=== PATIENT | male | born 1940 | race Caucasian/White ===

== ENCOUNTER 2016-12-24 18:19 | Inpatient (IN) | payer MEDICARE, MEDICAID ==
[2016-12-24 20:31] LABS: % BASOPHILS 0.6 % (0.0-2.0); % EOSINOPHILS 2.6 % (0.0-5.0); % LYMPHOCYTES 23.1 % (20.0-50.0); % MONOCYTES 6.5 % (2.0-10.0); % NEUTROPHILS 67.2 % (40.0-80.0); HEMATOCRIT 38.7 % (41.0-60); MEAN CELL VOLUME 94.5 fl (80-99); MEAN CORPUSCULAR HEMOGLOBIN 31.8 pg (27.0-31.0); MEAN CORPUSCULAR HGB CONC 33.7 pg (28.0-36.0); MEAN PLATELET VOLUME 7.2 fl; NEUTROPHILE ABSOLUTE 6.2 Th/cmm (1.8-8.0); PLATELET COUNT 201 Th/cmm (150-400); RED CELL DISTRIBUTION WIDTH 13.7 % (11.5-20.0); WHITE BLOOD COUNT 9.2 Th/cmm (4.8-10.8)
[2016-12-24 20:46] LABS: ALKALINE PHOSPHATASE 52 U/L (34-104); ANION GAP 8.2 (7.0-16.0); BILIRUBIN,TOTAL 0.8 mg/dL (0.3-1.0); BUN - UREA NITROGEN 24 mg/dL (7-25); BUN/CREATININE RATIO 18.5; CALCIUM SERUM 9.7 mg/dL (8.6-10.3); CHLORIDE 100 mEq/L (98-107); CREATININE - SERUM 1.3 mg/dL (0.7-1.3); GLUCOSE 88 mg/dL; POTASSIUM SERUM 4.2 mEq/L (3.5-5.1); SGOT 23 U/L (13-39); SGPT/ALT 22 U/L (7-52); SODIUM SERUM 133 mEq/L (136-145)
--- NOTE | 2016-12-25 00:05 | ED Physician Chart ---
ED Chief Complaint/HPI - Patient Information Date Seen:: 12/25/16 Time Seen:: 20:30 Chief Complaint:: Bilateral lower extremities ulcers History of Present Illness:: 76 yo male was brought by manager sap from [place] to ER for evaluation of bilateral lower extremities ulcers for more than a few months. These ulcers are healing with eschar except re-opening of an ulcer in the RLE. The patient was oriented to his name and place, not time. Allergies:: Allergies Allergy/AdvReac Type Severity Reaction Status Date / Time niacin Allergy Verified 12/24/16 18:59 Vitals:: Vital Signs - 8 hr 12/24/16 18:59 Temp 97.2 F HR 54 RR 16 BP 123/76 O2 Sat % 96 ED Review of Systems - Review of Systems General/Constitutional: No fever, No chills Skin: Skin lesions Head: No headache Eyes: No loss of vision ENT: No nasal drainage Neck: No neck pain, No swelling Cardio Vascular: No chest pain Pulmonary: No SOB GI: No nausea, No vomiting Musculoskeletal: No bone or joint pain Psychiatric: Prior psych history, Anxiety Neurological: No syncope ED Past Medical History - Past Medical History Past Medical History: HTN, DVT/PE, PUD/GERD, Other (BPH) Psychiatricy History: Schizophrenia, Dementia, Other (Anxiety) Family Medical History - Family Member Mother History Unknown: Yes ED Physical Exam - Physical Examination General/Constitutional: Awake, Alert Head: Atraumatic Eyes: PERRL, EOMI Other Skin comments:: Multiple healed ulcers with eschar on BLE with a open ulcer on RLE Neck: No JVD Respiratory: Clear to Auscultation, No Wheeze/Rhonchi/Rales Cardio Vascular: RRR, No murmur, gallop, rubs, NL S1 S2 Extremities: No edema Other Extremities comments:: mild erythema of BLE surrounding the ulcers ED Labs/Radiology/EKG Results - Lab Results Results: Laboratory Tests 12/24/16 12/24/16 12/24/16 20:22 20:22 20:22 WBC 9.2 RBC 4.10 Hgb 13.0 Hct 38.7 L MCV 94.5 MCH 31.8 H MCHC Differential 33.7 RDW 13.7 Plt Count 201 MPV 7.2 Neutrophils % 67.2 Lymphocytes % 23.1 Monocytes % 6.5 Eosinophils % 2.6 Basophils % 0.6 Sodium 133 L Potassium 4.2 Chloride 100 Carbon Dioxide 29.0 Anion Gap 8.2 BUN 24 Creatinine 1.3 Est GFR ( Amer) TNP Est GFR (Non-Af Amer) TNP BUN/Creatinine Ratio 18.5 Glucose 88 Hemoglobin A1c % 5.8 Calcium 9.7 Total Bilirubin 0.8 AST 23 ALT 22 Alkaline Phosphatase 52 Total Protein 7.3 Albumin 3.7 L Globulin 3.6 Albumin/Globulin Ratio 1.0 ED Assessment - Assessment General Assessment: BLE mild cellulitis, BLE ulcers healed, RLE open ulcer, hyponatremia Critical Care Time: 30 min Excludes all billable procedures: Yes This condition life threatening/high prob of deterioration: No Assessment/Comments:: CBC, CMP, HbA1c, CXR, EKG Admit to med surg for further evaluation and management ED Septic Shock - . Is Septic Shock (SBP<90, OR Lactate>4 mmol\L) present?: No - <6hrs of presentation: Vital Signs: Vital Signs - 8 hr 12/24/16 18:59 Temp 97.2 F HR 54 RR 16 BP 123/76 O2 Sat % 96 ED Reassessment (Disposition) - Reassessment Reassessment Condition:: Unchanged - Patient Disposition Discharge/Transfer:: Acute Care w/in this hosp Admitting Medical Physician:: Cady Vargas ED Discharge Plan - Patient Disposition Admit/Discharge/Transfer: Acute Care w/in this hosp
[2016-12-25] MEDS ORDERED: Pneumococcal Vaccine 0.5 mL Vial IM ONE (03:19)
[2016-12-25] MEDS ORDERED: Influenza Vaccine 0.5 mL Syr IM ONE (03:19)
[2016-12-25 03:38] VITALS: BP 146/78
[2016-12-25 06:56] LABS: % BASOPHILS 0.2 % (0.0-2.0); % EOSINOPHILS 3.4 % (0.0-5.0); % LYMPHOCYTES 18.4 % (20.0-50.0); % MONOCYTES 8.9 % (2.0-10.0); % NEUTROPHILS 69.1 % (40.0-80.0); HEMATOCRIT 37.1 % (41.0-60); HEMOGLOBIN 12.6 gm/dL (12-16); MEAN CELL VOLUME 94.2 fl (80-99); MEAN CORPUSCULAR HEMOGLOBIN 31.9 pg (27.0-31.0); MEAN CORPUSCULAR HGB CONC 33.9 pg (28.0-36.0); MEAN PLATELET VOLUME 6.5 fl; PLATELET COUNT 197 Th/cmm (150-400); RED BLOOD COUNT 3.93 Mil/cmm (3.80-5.80); RED CELL DISTRIBUTION WIDTH 13.4 % (11.5-20.0)
[2016-12-25 06:58] LABS: WHITE BLOOD COUNT 7.1 Th/cmm (4.8-10.8)
[2016-12-25 07:17] LABS: ALKALINE PHOSPHATASE 50 U/L (34-104); ANION GAP 8.3 (7.0-16.0); BILIRUBIN,TOTAL 0.7 mg/dL (0.3-1.0); BUN - UREA NITROGEN 23 mg/dL (7-25); BUN/CREATININE RATIO 17.7; CALCIUM SERUM 9.4 mg/dL (8.6-10.3); CARBON DIOXIDE 29.1 mEq/L (21.0-31.0); CHLORIDE 102 mEq/L (98-107); CHOLESTEROL 156 mg/dL (<200); CREATININE - SERUM 1.3 mg/dL (0.7-1.3); GLUCOSE 86 mg/dL; MAGNESIUM 2.1 mg/dL (1.9-2.7); POTASSIUM SERUM 4.4 mEq/L (3.5-5.1); SGOT 23 U/L (13-39); SGPT/ALT 20 U/L (7-52); SODIUM SERUM 135 mEq/L (136-145); TRIGLYCERIDES 266 mg/dL (<150)
[2016-12-25] MEDS ORDERED: VTE Chemical Prophylaxis Screen/Admission MC PRN (11:00)
[2016-12-26 05:50] LABS: % BASOPHILS 0.1 % (0.0-2.0); % EOSINOPHILS 2.8 % (0.0-5.0); % LYMPHOCYTES 23.1 % (20.0-50.0); % MONOCYTES 10.2 % (2.0-10.0); % NEUTROPHILS 63.8 % (40.0-80.0); HEMATOCRIT 40.3 % (41.0-60); HEMOGLOBIN 13.4 gm/dL (12-16); MEAN CELL VOLUME 93.5 fl (80-99); MEAN CORPUSCULAR HEMOGLOBIN 31.2 pg (27.0-31.0); MEAN CORPUSCULAR HGB CONC 33.3 pg (28.0-36.0); MEAN PLATELET VOLUME 7.7 fl; NEUTROPHILE ABSOLUTE 6.8 Th/cmm (1.8-8.0); PLATELET COUNT 198 Th/cmm (150-400); RED BLOOD COUNT 4.31 Mil/cmm (3.80-5.80); RED CELL DISTRIBUTION WIDTH 13.6 % (11.5-20.0)
[2016-12-26 05:51] LABS: WHITE BLOOD COUNT 10.6 Th/cmm (4.8-10.8)
[2016-12-26 06:10] LABS: ANION GAP 8.7 (7.0-16.0); BUN - UREA NITROGEN 22 mg/dL (7-25); BUN/CREATININE RATIO 14.7; CALCIUM SERUM 9.5 mg/dL (8.6-10.3); CARBON DIOXIDE 28.6 mEq/L (21.0-31.0); CHLORIDE 102 mEq/L (98-107); CREATININE - SERUM 1.5 mg/dL (0.7-1.3); MAGNESIUM 2.2 mg/dL (1.9-2.7); POTASSIUM SERUM 4.3 mEq/L (3.5-5.1); SODIUM SERUM 135 mEq/L (136-145)
[2016-12-26 06:11] LABS: GLUCOSE 112 mg/dL (70-105)
[2016-12-26] MEDS ORDERED: Magnesium Hydroxide (MOM) 30 mL UDC PO PRN (08:52)
[2016-12-26] MEDS ORDERED: CALCIUM CARBONATE PO SCH (09:00)
[2016-12-26] MEDS ORDERED: SOLIFENACIN SUCCINATE PO SCH (09:00)
[2016-12-26] MEDS ORDERED: [UNRECOGNIZED DRUG - OTHER] PO SCH (09:00)
[2016-12-26] MEDS ORDERED: VITAMIN D3 PO SCH (09:00)
[2016-12-26] MEDS ORDERED: Non-Formulary Item 1 EA (Rivaroxaban [Xarelto] 1 TAB) PO SCH (09:00)
[2016-12-26] MEDS ORDERED: OXYBUTYNIN CHLORIDE PO SCH (09:00)
[2016-12-26] MEDS ORDERED: [UNRECOGNIZED DRUG - OTHER] PO SCH (09:00)
--- NOTE | 2016-12-26 10:05 | History & Physical ---
ADMIT DATE: 12/25/2016 CHIEF COMPLAINT: Bilateral lower extremity redness and RLE open ulcer. HISTORY OF PRESENT ILLNESS: The patient is a 76-year-old gentleman with history of hypertension, BPH, acid reflux disease, possible Parkinson's, who was transferred to the ER from his board and care apparently secondary to the above. In the ER, pertinent findings included sodium of 133, BUN of 24 and physically, bilateral lower extremity redness. The patient is a poor historian, is not able to provide any significant history. He has been admitted to the medical/surgical floor for IV hydration, wound care and IV abxs. Per machine tool operator at assisted facility, pt was recently admitted there with previous hx of ble open wounds, but at the time of admission they were well healed, however, yesterday when they evaled him, the RLE had re-opened again. PAST MEDICAL HISTORY: Per records as noted above. PAST SURGICAL HISTORY: Unknown. FAMILY HISTORY: Likely noncontributory to his admission. SOCIAL HISTORY: Unknown, but he currently lives at a [facility]. ALLERGIES: Allergic to niacin. OUTPATIENT MEDICATIONS: Tylenol p.r.n., vitamin D 1000 units q. daily, dexlansoprazole 60 mg a.c. and at bedtime, Depakote ER t.i.d., docusate sodium 100 mg q. day, escitalopram 10 mg q. day, Proscar at bedtime, milk of magnesia 30 mL p.r.n. for constipation, metoprolol 25 b.i.d., multivitamins q. day, Zyprexa 1 mg at bedtime, omeprazole 20 mg q.a.c., oxybutynin 2 tabs q. daily, ramipril 10 mg b.i.d., Xarelto once a day, solifenacin q. day, Flomax 0.4 at bedtime. REVIEW OF SYSTEMS: A good review of systems was not able to be done given the patient's condition. PHYSICAL EXAMINATION: VITAL SIGNS: Temperature 96, pulse 68, BP 143/82, respirations 18, and satting 94% on room air. GENERAL: He is a well-developed and well-nourished gentleman, awake, he seems to follow commands and attempts to answer questions, but currently is just grumbling. He appears to be in no distress. HEAD AND NECK: Normocephalic, atraumatic. Pupils are reactive to light. Extraocular movements are intact. Oropharynx is moist and clear. CARDIAC: Regular rate and rhythm with no murmurs. LUNGS: Decreased at the bases, but clear to auscultation bilaterally. ABDOMEN: Soft, supple, nontender, nondistended, normoactive bowel sounds. EXTREMITIES: In lower extremities, there are dermatitic changes on both legs up to the mid shins. There is mild erythema noted on both legs, but no open wounds and no ulcers. There is 1-2+ pedal pulses. RLE with very small round open wound on the lateral aspect, which appears clean with no surrounding erythema. On the LLE, there is a small round ulcer at the same position as the RLE with eschar formation. NEUROLOGIC: Difficult to assess given the patient's condition. He does have tremors noted, both upper extremity tremor, appears to be nonfocal otherwise. LABORATORY DATA: On admission; his CBC was essentially within normal limits. Sodium 133, BUN 24, creatinine 1.3, and albumin 3.7. DIAGNOSTICS: None current. ASSESSMENT: 1. Mild bilateral lower extremity cellulitis. 2. RLE open ulcer-f/u wound c/s, daily WC, silvadene cream 3. LLE ulcer-appears to be healing with eschar formation. 4. Hyponatremia-IVF, monitor. 5. Mild renal insufficiency/dehydration-as above. 6. Essential hypertension. 7. Acid reflux disease. 8. DVT prophylaxis-on Xarelto. 9. Parkinson's dz? PLAN: The patient has been admitted to the medical floor for further management and care. He has been placed on IV abxs, IVF at 75 mL per hour. Daily WC has been ordered, and a wound C/S has been collected. He will be kept on his other medications as scheduled, and we will monitor his labs. JOB# [id number] [email or web address]
[2016-12-26] MEDS ORDERED: Non-Formulary Item 1 EA (Dexlansoprazole [Dexilant] 60 MG) PO SCH (11:30)
[2016-12-26] MEDS ORDERED: Non-Formulary Item 1 EA (Omeprazole [Omeprazole] 20 MG) PO SCH (11:30)
[2016-12-26] MEDS: Sodium Chloride 0.9% 1,000 ML IV SCH ×2 (11:45→22:01)
[2016-12-26] MEDS: Calcium Carb/Vit D 500 mg/200 U Tab PO SCH (16:50)
[2016-12-27 06:24] LABS: ANION GAP 9.4 (7.0-16.0); BUN - UREA NITROGEN 25 mg/dL (7-25); BUN/CREATININE RATIO 19.2; CARBON DIOXIDE 27.7 mEq/L (21.0-31.0); CHLORIDE 103 mEq/L (98-107); CREATININE - SERUM 1.3 mg/dL (0.7-1.3); MAGNESIUM 2.1 mg/dL (1.9-2.7); POTASSIUM SERUM 4.1 mEq/L (3.5-5.1); SODIUM SERUM 136 mEq/L (136-145)
[2016-12-27 06:30] LABS: GLUCOSE 92 mg/dL (70-105)
[2016-12-27] MEDS: Calcium Carb/Vit D 500 mg/200 U Tab PO SCH ×2 (08:22→17:15)
[2016-12-27] MEDS: Pantoprazole 40 mg EC Tab PO SCH (08:24)
[2016-12-27] MEDS: Multivitamin Tab PO SCH (08:27)
[2016-12-27] MEDS: Sodium Chloride 0.9% 1,000 ML IV SCH (13:58)
[2016-12-27] MEDS ORDERED: Probiotic Screen MC PRN (15:25)
[2016-12-28] MEDS: Sodium Chloride 0.9% 1,000 ML IV SCH (02:26)
[2016-12-28 06:48] LABS: BUN - UREA NITROGEN 21 mg/dL (7-25); BUN/CREATININE RATIO 17.5; CALCIUM SERUM 9.2 mg/dL (8.6-10.3); CARBON DIOXIDE 28.3 mEq/L (21.0-31.0); CHLORIDE 106 mEq/L (98-107); CREATININE - SERUM 1.2 mg/dL (0.7-1.3); GLUCOSE 119 mg/dL (70-105); MAGNESIUM 2.1 mg/dL (1.9-2.7); POTASSIUM SERUM 4.3 mEq/L (3.5-5.1); SODIUM SERUM 138 mEq/L (136-145)
[2016-12-28] MEDS: Pantoprazole 40 mg EC Tab PO SCH (08:32)
[2016-12-28] MEDS: Multivitamin Tab PO SCH (08:33)
[2016-12-28] MEDS: Calcium Carb/Vit D 500 mg/200 U Tab PO SCH (08:34)
[2016-12-28] MEDS ORDERED: Lactobacillus Rhamnosus 10 Billion CFU Capsule PO SCH (09:00)
== END 2016-12-28 11:40 | DRG 603 ==
LOC: ER 18:19 → MSI 12-25 00:10
PROVIDERS: ADMIT Internal Medicine; ATTEND Internal Medicine
DX: L03.115 Cellulitis of right lower limb (principal); E87.1 Hypo-osmolality and hyponatremia; I48.91 Unspecified atrial fibrillation; G20 Parkinson's disease; L97.918 Non-pressure chronic ulcer of unspecified part of right lower leg with other specified severity; F20.9 Schizophrenia, unspecified; E86.0 Dehydration; L97.928 Non-pressure chronic ulcer of unspecified part of left lower leg with other specified severity; L03.116 Cellulitis of left lower limb; F03.90 Unspecified dementia, unspecified severity, without behavioral disturbance, psychotic disturbance, mood disturbance, and anxiety; F29 Unspecified psychosis not due to a substance or known physiological condition; I10 Essential (primary) hypertension; K21.9 Gastro-esophageal reflux disease without esophagitis; N40.0 Benign prostatic hyperplasia without lower urinary tract symptoms; F41.9 Anxiety disorder, unspecified; N28.9 Disorder of kidney and ureter, unspecified; Z86.718 Personal history of other venous thrombosis and embolism
CPT/HCPCS: 36415-UA; 80048-TC; 80053-TC; 80061-TC; 83036-90; 83735-TC; 85025-TC; 85652-TC; 87070-90; J0696; J7030; J7051; Z7610

== ENCOUNTER 2018-01-07 13:05 | Inpatient (IN) | payer MEDICARE, MEDICAID ==
[2018-01-07] MEDS ORDERED: Sodium Chloride 0.9% 1,000 ML IV ONE (13:48)
--- NOTE | 2018-01-07 13:49 | ED Physician Chart ---
ED Chief Complaint/HPI - Patient Information Date Seen:: 01/07/18 Time Seen:: 13:25 Chief Complaint:: Vomiting History of Present Illness:: onset x 2 days of N/V/D x 6; no report of trauma, LOC, ALOC, AMS, H/As, S/T, neck pain, cough, C/P, SOB, Abd. Pain, A/C, fever, chills, or urinary s/s Allergies:: Allergies Allergy/AdvReac Type Severity Reaction Status Date / Time niacin Allergy Verified 12/24/16 18:59 Vitals:: Vital Signs - 8 hr 01/07/18 13:25 Temp 96.6 F HR 63 RR 18 BP 109/60 Historian:: Patient, EMS Review:: Nurse's Note Reviewed, Old Chart Reviewed, EMS run form Reviewed ED Review of Systems - Review of Systems General/Constitutional: No fever, No chills, No weight loss, No weakness, No diaphoresis, No edema, No loss of appetite Skin: No skin lesions, No rash, No bruising Head: No headache, No light-headedness Eyes: No loss of vision, No pain, No diplopia ENT: No earache, No nasal drainage, No sore throat, No tinnitus Neck: No neck pain, No swelling, No thyromegaly, No stiffness, No mass noted Cardio Vascular: No chest pain, No palpitations, No PND, No orthopnea, No edema Pulmonary: No SOB, No cough, No sputum, No wheezing GI: Nausea, Vomiting, Diarrhea, Pain, No melena, No hematochezia, No constipation, No hematemesis G/U: No dysuria, No frequency, No hematuria, No nacturia Musculoskeletal: No bone or joint pain, No back pain, No muscle pain Endocrine: No polyuria, No polydipsia Psychiatric: Prior psych history, Depression, Anxiety, No suicidal ideation, No homicidal ideation, Auditory hallucination, No visual hallucination Hematopoietic: No bruising, No lymphadenopathy Allergic/Immuno: No urticaria, No angioedema Neurological: No syncope, No focal symptoms, No weakness, No paresthesia, No headache, No seizure, No dizziness, Confusion, No vertigo ED Past Medical History - Past Medical History Obtainable: Yes Past Medical History: HTN, Dementia Family History: HTN Social History: Non Smoker, No Alcohol, No Drug Use, Single, Care Facility Surgical History: None Psychiatricy History: Depression, Schizophrenia, Dementia Medication: Reviewed Family Medical History - Family Member Mother History Unknown: Yes ED Physical Exam - Physical Examination General/Constitutional: Awake, Well-developed, well-nourished, Alert, No distress, GCS 15, Non-toxic appearing, Ambulatory Head: Atraumatic Eyes: Lids, conjuctiva normal, PERRL, EOMI Skin: Nl inspection, No rash, No skin lesions, No ecchymosis, Well hydrated, No lymphadenopathy ENMT: External ears, nose nl, TM canals nl, Nasal exam nl, Lips, teeth, gums nl , Oropharynx nl, Tonsils nl Neck: Nontender, Full ROM w/o pain, No JVD, No nuchal rigidity, No bruit, No mass, No stridor Respiratory: Nl effort/Exclusion, Clear to Auscultation, No Wheeze/Rhonchi/Rales Cardio Vascular: RRR, No murmur, gallop, rubs, NL S1 S2, Carotid/Femoral/Distal pulses equal bilaterally GI: No tenderness/rebounding/guarding, No organomegaly, No hernia, Normal BS's, Nondistended, No mass/bruits, No McBurney tenderness, Rectum exam nl Other GI comments:: no pulsatile masses : No CVA tenderness Extremities: No tenderness or effusion, Full ROM, normal strength in all extremities, No edema, Normal digits & nails Neuro/Psych: Alert/oriented, DTR's symmetric, Normal sensory exam, Normal motor strength, Judgement/insight normal, Mood normal, Normal gait, No focal deficits Misc: Normal back, No paraspinal tenderness ED Labs/Radiology/EKG Results - Lab Results Comments:: Reviewed - Radiology Results Comments:: NAD - EKG Interpretations EKG Time:: 14:02 Rate & Rhythm: 62; NSR Comments:: RBBB; non-specific st-t changes ED Septic Shock - . Is Septic Shock (SBP<90, OR Lactate>4 mmol\L) present?: No - <6hrs of presentation: Vital Signs: Vital Signs - 8 hr 01/07/18 13:25 Temp 96.6 F HR 63 RR 18 BP 109/60 ED Reassessment (Disposition) - Reassessment Reassessment Condition:: Improved - Diagnosis Diagnosis:: Dx: AGE; N/V/D; Gastroenteritis; Leukocytosis; Dehydration; Renal Insuffiency; Pre-Renal Azotemia; Hematuria; UTI - Aftercare/Follow up Instructions Aftercare/Follow-Up Instructions:: Counseled pt regarding lab results/diagnosis & need follow up, Counseled pt & family regarding lab results/diagnosis & need follow up - Patient Disposition Discharge/Transfer:: Acute Care w/in this hosp Accepting Physician:: Dr. Vargas Time Called:: 1515 Time Responded:: 15:15 Admitted to:: Telemetry Spoke to:: Dr. Vargas Admitting Medical Physician:: Dr. Vargas Condition at Disposition:: Stable, Improved
[2018-01-07 14:02] LABS: % BASOPHILS 0.2 % (0.0-2.0); % EOSINOPHILS 1.7 % (0.0-5.0); % LYMPHOCYTES 14.7 % (20.0-50.0); % MONOCYTES 7.6 % (2.0-10.0); % NEUTROPHILS 75.8 % (40.0-80.0); EOSINOPHILE ABSOLUTE 0.2 Th/cmm (0.1-0.4); HEMATOCRIT 35.6 % (41.0-60); HEMOGLOBIN 12.1 gm/dL (12-16); LYMPHOCYTE ABSOLUTE 1.7 Th/cmm (1.5-3.0); MEAN CORPUSCULAR HEMOGLOBIN 33.3 pg (27.0-31.0); MEAN PLATELET VOLUME 7.8 fl; MONOCYTE ABSOLUTE 0.9 Th/cmm (0.3-1.0); NEUTROPHILE ABSOLUTE 8.6 Th/cmm (1.8-8.0); PLATELET COUNT 273 Th/cmm (150-400); RED BLOOD COUNT 3.63 Mil/cmm (3.80-5.80); RED CELL DISTRIBUTION WIDTH 12.4 % (11.5-20.0); WHITE BLOOD COUNT 11.4 Th/cmm (4.8-10.8)
[2018-01-07 14:32] LABS: ALBUMIN 3.5 gm/dL (4.2-5.5); ALKALINE PHOSPHATASE 25 U/L (34-104); ANION GAP 13.8 (7.0-16.0); BILIRUBIN,TOTAL 0.3 mg/dL (0.3-1.0); BUN - UREA NITROGEN 68 mg/dL (7-25); CALCIUM SERUM 9.5 mg/dL (8.6-10.3); CARBON DIOXIDE 25.1 mEq/L (21.0-31.0); CHLORIDE 106 mEq/L (98-107); CHOLESTEROL 160 mg/dL (<200); CREATININE - SERUM 2.9 mg/dL (0.7-1.3); CREATININE KINASE 27 U/L (30-223); GLUCOSE 134 mg/dL (70-105); HDL -HIGH DENSITY LIPOPROTEIN 36 mg/dL (23-92); INR 1.3 (0.5-1.4); POTASSIUM SERUM 4.9 mEq/L (3.5-5.1); PROTHROMBIN TIME (TEST) 13.3 SECONDS (9.5-11.5); SGOT 25 U/L (13-39); SGPT/ALT 14 U/L (7-52); SODIUM SERUM 140 mEq/L (136-145); TOTAL PROTEIN,SERUM 7.2 gm/dL (6.0-8.3); TRIGLYCERIDES 201 mg/dL (<150)
[2018-01-07 14:33] LABS: AMYLASE SERUM 29 U/L (29-103); LIPASE 63 U/L (11-82)
[2018-01-07 15:57] LABS: URINE SOURCE CLEAN C
[2018-01-07 16:14] LABS: URINE BILIRUBIN NEGATIVE (NEGATIVE); URINE BLOOD LARGE (NEGATIVE); URINE GLUCOSE (UA) NEGATIVE (NEGATIVE); URINE KETONE NEGATIVE (NEGATIVE); URINE LEUKOCYTE ESTERASE LARGE (NEGATIVE); URINE MICROSCOPIC INDICATED? YES; URINE NITRATE POSITIVE (NEGATIVE); URINE PH 6.5 (4.6 - 8.0); URINE PROTEIN 100 mg/dL (NEGATIVE); URINE UROBILINOGEN 0.2 E.U./dL (0.2 - 1.0)
[2018-01-07 16:17] LABS: URINE CLARITY CLOUDY (CLEAR); URINE COLOR YELLOW
[2018-01-07 16:18] LABS: URINE WBC 50-100 /hpf (0-5)
[2018-01-07 16:19] LABS: URINE BACTERIA MANY /hpf (NONE SEEN); URINE EPITHELIAL CELLS FEW /lpf (FEW)
[2018-01-07] MEDS ORDERED: cefTRIAXone 1 GM in Sodium Chloride 0.9% 50 ML IV ONE (16:20)
[2018-01-07] MEDS: Sodium Chloride 0.9% 1,000 ML IV SCH (20:59)
[2018-01-07 22:26] VITALS: BP 139/76
[2018-01-08 07:10] LABS: % BASOPHILS 0.5 % (0.0-2.0); % EOSINOPHILS 2.7 % (0.0-5.0); % LYMPHOCYTES 15.8 % (20.0-50.0); % MONOCYTES 8.4 % (2.0-10.0); % NEUTROPHILS 72.6 % (40.0-80.0); EOSINOPHILE ABSOLUTE 0.2 Th/cmm (0.1-0.4); HEMATOCRIT 35.4 % (41.0-60); HEMOGLOBIN 12.1 gm/dL (12-16); LYMPHOCYTE ABSOLUTE 1.4 Th/cmm (1.5-3.0); MEAN CORPUSCULAR HEMOGLOBIN 33.6 pg (27.0-31.0); MEAN CORPUSCULAR HGB CONC 34.2 pg (28.0-36.0); MEAN PLATELET VOLUME 7.4 fl; MONOCYTE ABSOLUTE 0.7 Th/cmm (0.3-1.0); NEUTROPHILE ABSOLUTE 6.4 Th/cmm (1.8-8.0); PLATELET COUNT 267 Th/cmm (150-400); RED BLOOD COUNT 3.61 Mil/cmm (3.80-5.80); RED CELL DISTRIBUTION WIDTH 12.6 % (11.5-20.0); WHITE BLOOD COUNT 8.7 Th/cmm (4.8-10.8)
[2018-01-08 07:27] LABS: ALBUMIN 3.5 gm/dL (4.2-5.5); ALKALINE PHOSPHATASE 31 U/L (34-104); ANION GAP 10.3 (7.0-16.0); BILIRUBIN,TOTAL 0.4 mg/dL (0.3-1.0); BUN - UREA NITROGEN 60 mg/dL (7-25); CALCIUM SERUM 9.7 mg/dL (8.6-10.3); CARBON DIOXIDE 27.6 mEq/L (21.0-31.0); CHLORIDE 109 mEq/L (98-107); CREATININE - SERUM 2.5 mg/dL (0.7-1.3); GLUCOSE 84 mg/dL (70-105); MAGNESIUM 2.2 mg/dL (1.9-2.7); POTASSIUM SERUM 4.9 mEq/L (3.5-5.1); SGOT 28 U/L (13-39); SGPT/ALT 14 U/L (7-52); SODIUM SERUM 142 mEq/L (136-145); TOTAL PROTEIN,SERUM 7.1 gm/dL (6.0-8.3)
[2018-01-08] MEDS ORDERED: Magnesium Hydroxide (MOM) 30 mL UDC PO PRN (13:46)
[2018-01-08] MEDS ORDERED: SOLIFENACIN SUCCINATE PO SCH (14:00)
[2018-01-08] MEDS ORDERED: Non-Formulary Item 1 EA (Rivaroxaban [Xarelto] 1 TAB) PO SCH (14:00)
[2018-01-08] MEDS ORDERED: OXYBUTYNIN CHLORIDE PO SCH (14:00)
[2018-01-08 14:17] LABS: EOSINOPHIL SMEAR SOURCE URINE; EOSINOPHILS SMEAR COUNT NONE SEEN (NONE SEEN)
[2018-01-08] MEDS: cefTRIAXone 1 GM in Sodium Chloride 0.9% 50 ML IV SCH (16:19)
[2018-01-08] MEDS: Calcium Carb/Vit D 500 mg/200 U Tab PO SCH (16:20)
[2018-01-08] MEDS: Sodium Chloride 0.9% 1,000 ML IV SCH (16:21)
[2018-01-08] MEDS ORDERED: Non-Formulary Item 1 EA (Omeprazole [Omeprazole] 20 MG) PO SCH (16:30)
[2018-01-08] MEDS ORDERED: Non-Formulary Item 1 EA (Dexlansoprazole [Dexilant] 60 MG) PO SCH (16:30)
[2018-01-08] MEDS ORDERED: [UNRECOGNIZED DRUG - OTHER] PO SCH (17:00)
[2018-01-08] MEDS ORDERED: CALCIUM CARBONATE PO SCH (17:00)
[2018-01-08] MEDS ORDERED: VITAMIN D3 PO SCH (17:00)
[2018-01-09] MEDS: Sodium Chloride 0.9% 1,000 ML IV SCH ×2 (03:31→22:27)
[2018-01-09 04:44] LABS: % BASOPHILS 0.3 % (0.0-2.0); % LYMPHOCYTES 14.4 % (20.0-50.0); % MONOCYTES 8.2 % (2.0-10.0); % NEUTROPHILS 75.1 % (40.0-80.0); EOSINOPHILE ABSOLUTE 0.3 Th/cmm (0.1-0.4); HEMATOCRIT 31.7 % (41.0-60); HEMOGLOBIN 11.1 gm/dL (12-16); LYMPHOCYTE ABSOLUTE 1.8 Th/cmm (1.5-3.0); MEAN CELL VOLUME 96.1 fl (80-99); MEAN CORPUSCULAR HEMOGLOBIN 33.5 pg (27.0-31.0); MEAN CORPUSCULAR HGB CONC 34.8 pg (28.0-36.0); MEAN PLATELET VOLUME 6.9 fl; NEUTROPHILE ABSOLUTE 9.5 Th/cmm (1.8-8.0); PLATELET COUNT 214 Th/cmm (150-400); RED CELL DISTRIBUTION WIDTH 12.1 % (11.5-20.0); WHITE BLOOD COUNT 12.6 Th/cmm (4.8-10.8)
[2018-01-09 05:24] LABS: ANION GAP 13.5 (7.0-16.0); BUN - UREA NITROGEN 39 mg/dL (7-25); CALCIUM SERUM 8.9 mg/dL (8.6-10.3); CARBON DIOXIDE 22.2 mEq/L (21.0-31.0); CHLORIDE 107 mEq/L (98-107); CREATININE - SERUM 1.9 mg/dL (0.7-1.3); GLUCOSE 85 mg/dL (70-105); MAGNESIUM 1.6 mg/dL (1.9-2.7); PHOSPHOROUS 2.6 mg/dL (2.5-5.0); POTASSIUM SERUM 4.7 mEq/L (3.5-5.1); SODIUM SERUM 138 mEq/L (136-145)
--- NOTE | 2018-01-09 08:46 | Diagnostic Imaging Report ---
Renal ultrasound HISTORY: Acute Renal failure. COMPARISON: None Technique: Sonography of the kidneys and urinary bladder was performed in multiple planes. FINDINGS: Exam is limited due to body habitus. The right kidney measures 12.3 x 6.7 cm demonstrating severe hydronephrosis. The left kidney measures 10.3 x 5.7 cm demonstrates severe hydronephrosis. Assessment for focal lesions is limited on this exam. There is probable bilateral renal scarring. The urinary bladder is underdistended, limiting its evaluation. Mild urinary bladder wall thickening is noted. Assessment of the prostate gland was limited on this exam. IMPRESSION: Limited exam due to body habitus. Severe bilateral hydronephrosis. Please correlate with clinical findings. Consider further assessment with CT examination. Nondistended urinary bladder. Mild urinary bladder wall thickening is noted. Inflammatory or infectious process cannot be excluded.
[2018-01-09] MEDS ORDERED: [UNRECOGNIZED DRUG - OTHER] PO SCH (09:00)
[2018-01-09] MEDS ORDERED: Mag Sulfate 2gm/50mL Premix 2 GM/50 ML BAG IV ONE (09:46)
[2018-01-09] MEDS: Pantoprazole 40 mg EC Tab PO SCH (10:17)
[2018-01-09] MEDS: Calcium Carb/Vit D 500 mg/200 U Tab PO SCH ×2 (10:17→17:39)
[2018-01-09] MEDS: Ciprofloxacin 200mg Premix PB 200 MG/100 ML BAG IV SCH (10:21)
--- NOTE | 2018-01-09 11:53 | History & Physical ---
ADMIT DATE: 01/08/2018 CHIEF COMPLAINT: Nausea, vomiting and weakness. HISTORY OF PRESENT ILLNESS: The patient is a 77-year-old gentleman with a history of depression, essential hypertension, BPH, history of lower extremity DVT, psychosis, who presented from [facility] with 6 episodes of nausea and vomiting. He is a poor historian overall, but per ER staff there was no mention of abdominal pain, fever, chills, cough or phlegm production. Pertinent findings on admission include a white count of 11.4, BUN and creatinine of 68/2.9 and UA consistent with UTI. The patient has been admitted to the telemetry garner for further management and care. PAST MEDICAL HISTORY: As noted above. Unspecified psych disorder. PAST SURGICAL HISTORY: None per records. SOCIAL HISTORY: No tobacco, ETOH or illicit drug usage. He lives at [facility]. ALLERGIES: ALLERGIC TO NIACIN. OUTPATIENT MEDICATIONS: Keflex 500 mg q.8, Altace 10 b.i.d., acetaminophen 650 q.6 hour p.r.n. for pain, calcium with vitamin D3 b.i.d., vitamin D3 1000 international units every day, Dexilant 60 q.a.c. and at bedtime, Depakote 500 mg t.i.d., Colace 100 mg daily, Lexapro 10 mg every daily, Proscar 5 mg at bedtime, milk of magnesia 30 mL every daily p.r.n., metoprolol 25 b.i.d., multivitamins and minerals daily, olanzapine 5 mg at bedtime, omeprazole 20 q.a.c., oxybutynin 30 mg daily, Xarelto 20 mg every day, VESIcare 5 mg daily, Flomax 0.4 at bedtime. REVIEW OF SYSTEMS: GENERAL: There are no reports of fever, chills or recent weight loss. CARDIOVASCULAR: No chest pain or palpitations. PULMONARY: No cough or phlegm production. No shortness of breath. GASTROINTESTINAL: Nausea, vomiting as noted above, but there is no diarrhea or abdominal pain reported. GENITOURINARY: No dysuria or hematuria reported. NEUROLOGIC: No changes in vision, no headaches, no syncope. PHYSICAL EXAMINATION: VITAL SIGNS: Temperature 97.0, pulse 71, respirations 18, BP 132/69 with sats of 96% on room air. GENERAL: He is a well-developed, well-nourished male lying in bed with no acute distress. He is nontoxic appearing. HEAD AND NECK: Normocephalic, atraumatic. Pupils reactive to light. Extraocular movements are intact. Oropharynx is moist and clear. NECK: There is no JVD or LAD. CARDIAC: Regular rate and rhythm without any murmurs. LUNGS: Diminished at the bases, but otherwise clear to auscultation bilaterally. ABDOMEN: Soft, supple. Currently, nontender, nondistended, normoactive bowel sounds. EXTREMITIES: Lower extremity, there is no pedal edema. LABORATORY DATA: On admission, white count 11.4, H and H 12/35, platelet count 273. INR 1.30. BUN 68, creatinine 2.9, glucose 134, otherwise all the chemistries were within normal limits, alk phos 25. Troponins are negative x 1 set. BNP 51. Albumin 3.5. TSH 5.8. UA shows positive for protein, large blood, positive for nitrites, large leukocyte esterase with 5-10 rbcs and 50-100 wbcs. DIAGNOSTIC DATA: EKG shows normal sinus rhythm at a rate of 62, no obvious abnormalities noted. IMPRESSION: 1. Urinary tract infection. 2. Gastroenteritis. 3. Acute renal insufficiency. 4. Leukocytosis. 5. History of essential hypertension. 6. History of depression/psych disorder. 7. History of lower extremity deep venous thrombosis. 8. Benign prostatic hypertrophy. PLAN: The patient has been admitted to a telemetry garner for further management and care. He has been placed on IV fluids, IV antibiotics and has been pancultured. He will also be kept on his other medications except for Altace given his renal insufficiency. We will ask for a renal consult as well as a kidney ultrasound for management and care. JOB# [id number]
--- NOTE | 2018-01-09 16:58 | General Progress Note ---
Subjective - Review of Systems Service Date: 01/09/18 Subjective: alert, comfortable; no further N/V, diarrhea Objective - Results Result Diagrams: 01/09/18 04:25 01/09/18 04:25 Recent Labs: Laboratory Last Values WBC 12.6 Th/cmm (4.8-10.8) H 01/09/18 04:25 RBC 3.30 Mil/cmm (3.80-5.80) L 01/09/18 04:25 Hgb 11.1 gm/dL (12-16) L 01/09/18 04:25 Hct 31.7 % (41.0-60) L 01/09/18 04:25 MCV 96.1 fl (80-99) 01/09/18 04:25 MCH 33.5 pg (27.0-31.0) H 01/09/18 04:25 MCHC Differential 34.8 pg (28.0-36.0) 01/09/18 04:25 RDW 12.1 % (11.5-20.0) 01/09/18 04:25 Plt Count 214 Th/cmm (150-400) 01/09/18 04:25 MPV 6.9 fl 01/09/18 04:25 Neutrophils % 75.1 % (40.0-80.0) 01/09/18 04:25 Lymphocytes % 14.4 % (20.0-50.0) L 01/09/18 04:25 Monocytes % 8.2 % (2.0-10.0) 01/09/18 04:25 Eosinophils % 2.0 % (0.0-5.0) 01/09/18 04:25 Basophils % 0.3 % (0.0-2.0) 01/09/18 04:25 Eos Smear Source URINE 01/08/18 11:55 Eos Smear Total Cells NONE SEEN (NONE SEEN) 01/08/18 11:55 PT 13.3 SECONDS (9.5-11.5) H 01/07/18 13:50 INR 1.30 (0.5-1.4) 01/07/18 13:50 Sodium 138 mEq/L (136-145) 01/09/18 04:25 Potassium 4.7 mEq/L (3.5-5.1) 01/09/18 04:25 Chloride 107 mEq/L (98-107) 01/09/18 04:25 Carbon Dioxide 22.2 mEq/L (21.0-31.0) 01/09/18 04:25 Anion Gap 13.5 (7.0-16.0) 01/09/18 04:25 BUN 39 mg/dL (7-25) H 01/09/18 04:25 Creatinine 1.9 mg/dL (0.7-1.3) H 01/09/18 04:25 Est GFR ( Amer) TNP 01/09/18 04:25 Est GFR (Non-Af Amer) TNP 01/09/18 04:25 BUN/Creatinine Ratio 20.5 01/09/18 04:25 Glucose 85 mg/dL (70-105) 01/09/18 04:25 Calcium 8.9 mg/dL (8.6-10.3) 01/09/18 04:25 Phosphorus 2.6 mg/dL (2.5-5.0) 01/09/18 04:25 Magnesium 1.6 mg/dL (1.9-2.7) L 01/09/18 04:25 Total Bilirubin 0.4 mg/dL (0.3-1.0) 01/08/18 06:05 AST 28 U/L (13-39) 01/08/18 06:05 ALT 14 U/L (7-52) 01/08/18 06:05 Alkaline Phosphatase 31 U/L (34-104) L 01/08/18 06:05 Creatine Kinase 27 U/L (30-223) L 01/07/18 13:50 Troponin I 0.02 ng/mL (0.01-0.05) 01/07/18 13:50 B-Natriuretic Peptide 51.8 pg/mL (5.0-100.0) 01/07/18 13:50 Total Protein 7.1 gm/dL (6.0-8.3) 01/08/18 06:05 Albumin 3.5 gm/dL (4.2-5.5) L 01/08/18 06:05 Globulin 3.6 gm/dL 01/08/18 06:05 Albumin/Globulin Ratio 1.0 (1.0-1.8) 01/08/18 06:05 Triglycerides 201 mg/dL (<150) H 01/07/18 13:50 Cholesterol 160 mg/dL (<200) 01/07/18 13:50 LDL Cholesterol Direct 110 mg/dL (75-193) 01/07/18 13:50 HDL Cholesterol 36 mg/dL (23-92) 01/07/18 13:50 Amylase 29 U/L (29-103) 01/07/18 13:50 Lipase 63 U/L (11-82) 01/07/18 13:50 TSH 5.80 uIU/ml (0.34-5.60) H 01/08/18 06:05 Urine Source CLEAN C 01/07/18 15:15 Urine Color YELLOW 01/07/18 15:15 Urine Clarity CLOUDY (CLEAR) 01/07/18 15:15 Urine pH 6.5 (4.6 - 8.0) 01/07/18 15:15 Ur Specific [place] 1.020 (1.005-1.030) 01/07/18 15:15 Urine Protein 100 mg/dL (NEGATIVE) H 01/07/18 15:15 Urine Glucose (UA) NEGATIVE mg/dL (NEGATIVE) 01/07/18 15:15 Urine Ketones NEGATIVE mg/dL (NEGATIVE) 01/07/18 15:15 Urine Blood LARGE (NEGATIVE) H 01/07/18 15:15 Urine Nitrate POSITIVE (NEGATIVE) H 01/07/18 15:15 Urine Bilirubin NEGATIVE (NEGATIVE) 01/07/18 15:15 Urine Urobilinogen 0.2 E.U./dL (0.2 - 1.0) 01/07/18 15:15 Ur Leukocyte Esterase LARGE (NEGATIVE) H 01/07/18 15:15 Urine RBC 5-10 /hpf (0-5) H 01/07/18 15:15 Urine WBC 50-100 /hpf (0-5) H 01/07/18 15:15 Ur Epithelial Cells FEW /lpf (FEW) 01/07/18 15:15 Urine Bacteria MANY /hpf (NONE SEEN) H 01/07/18 15:15 Ur Random Sodium 119 mmol/L 01/08/18 11:55 Urine Creatinine 74.0 mg/dl (39.0-259.0) 01/08/18 11:55 Microalb/Creat Ratio 195.2 mg/g creat (0.0-30.0) H 01/08/18 11:55 - Physical Exam Vitals and I&O: Vital Signs Temp 98.1 F 01/09/18 16:45 Pulse 76 01/09/18 16:45 Resp 18 01/09/18 16:45 BP 118/70 01/09/18 16:45 Pulse Ox 98 01/09/18 16:45 Intake & Output 01/08/18 01/09/18 01/09/18 18:59 06:59 18:59 Intake Total 550 1050 Balance 550 1050 Weight (lbs) 63.957 kg 63.957 kg Intake: Intake, IV Amount 1000 Sodium Chloride 0.9% 1, 1000 000 ml @ 100 mls/hr IV . Q10H [facility] Rx#:[id number] Oral 550 50 Other: # Voids 3 2 # Bowel Movements 1 0 Stool Characteristics Soft Formed Weight Source Bedscale Bedscale Active Medications: Current Medications Acetaminophen (Tylenol) 650 mg PO Q6H PRN PRN Reason: fever/pain Stop: 03/09/18 13:42 Calcium/Vitamin D (Oscal W/Vitamin D) 1 tab PO BID [facility] Stop: 03/09/18 16:59 Last Admin: 01/09/18 10:17 Dose: 1 tab Cholecalciferol (Vitamin D3) 1,000 iu PO DAILY [facility] Stop: 03/09/18 13:44 Last Admin: 01/09/18 10:17 Dose: 1,000 iu Divalproex Sodium (Depakote Er) 500 mg PO TID [facility]; Protocol Stop: 03/09/18 13:59 Last Admin: 01/09/18 14:21 Dose: 500 mg Docusate Sodium (Colace) 100 mg PO DAILY [facility] Stop: 03/09/18 13:44 Last Admin: 01/09/18 10:17 Dose: 100 mg Escitalopram Oxalate (Lexapro) 10 mg PO DAILY [facility]; Protocol Stop: 03/09/18 13:44 Last Admin: 01/09/18 10:16 Dose: 10 mg Finasteride (Proscar) 5 mg PO HS [facility]; Protocol Stop: 03/09/18 20:59 Last Admin: 01/08/18 21:05 Dose: 5 mg Sodium Chloride (Nacl 0.9%) 1,000 mls @ 100 mls/hr IV .Q10H [facility] Stop: 03/08/18 17:44 Last Admin: 01/09/18 03:31 Dose: 100 mls/hr Ceftriaxone Sodium 1 gm/ (Sodium Chloride) 50 mls @ 100 mls/hr IV Q24HR [facility] Stop: 03/09/18 16:59 Last Admin: 01/08/18 16:19 Dose: 100 mls/hr Ciprofloxacin (Cipro 200mg Premix Pb) 200 mg in 100 mls @ 100 mls/hr IV Q24HR [facility] Stop: 03/10/18 09:44 Last Admin: 01/09/18 10:21 Dose: 100 mls/hr Magnesium Hydroxide (Milk Of Magnesia) 30 ml PO DAILY PRN PRN Reason: Constipation Stop: 03/09/18 13:45 Metoprolol Tartrate (Lopressor) 25 mg PO BID [facility] Stop: 03/09/18 16:59 Last Admin: 01/09/18 10:16 Dose: 25 mg Olanzapine (Zyprexa) 5 mg PO [facility]; Protocol Stop: 03/09/18 20:59 Last Admin: 01/08/18 21:05 Dose: 5 mg Oxybutynin Chloride (Ditropan) 10 mg PO DAILY [facility] Stop: 03/10/18 08:59 Last Admin: 01/09/18 10:16 Dose: 10 mg Pantoprazole Sodium (Protonix) 40 mg PO DAILY [facility] Stop: 03/10/18 08:59 Last Admin: 01/09/18 10:17 Dose: 40 mg Rivaroxaban (Xarelto) 10 mg PO DAILY [facility] Stop: 03/10/18 08:59 Last Admin: 01/09/18 10:17 Dose: 10 mg Tamsulosin HCl (Flomax) 0.4 mg PO [facility] Stop: 03/09/18 20:59 Last Admin: 01/08/18 21:05 Dose: 0.4 mg General: Alert, No acute distress HEENT: Atraumatic, Mucous membr. moist/pink Neck: Supple, +2 carotid pulse wo bruit Cardiovascular: Regular rate, Normal S1, Normal S2 Lungs: Clear to auscultation Abdomen: Bowel sounds, Soft Extremities: no Edema Neurological: Sensation intact Skin: no Significant lesion Psych/Mental Status: Mood NL - Procedures Procedures: Procedures Procedure Code Date C & S-INTEGUMENT 91.63 07/11/94 CULTURE OTHR SPECIMN AEROBIC 31149 07/11/94 DX ULTRASOUND-VASCULAR 88.77 02/13/95 ELECTROCARDIOGRAPH MONIT 89.54 02/13/95 INJECT ANTIBIOTIC 99.21 11/25/94 INJECT ANTICOAGULANT 99.19 07/11/94 MICROBE SUSCEPTIBLE DISK 89012 07/11/94 OTHER C.A.T. SCAN 88.38 02/13/95 URINARY SYSTEM X-RAY NEC 87.79 07/11/94 [place] THERAPY 01043 07/11/94 WH[place]OL TREATMENT 93.32 07/11/94 Assessment/Plan - Assessment Assessment: [place] Acute gastroenteritis Dehydration Severe B/L hydronephrosis Severe ID Paranoid schizo Ess Htn BPH Depression LE DVT Epilepsy - Plan Plan: Lab - Result Diagrams 01/09/18 04:25 01/09/18 04:25 Current Medications Acetaminophen (Tylenol) 650 mg PO Q6H PRN PRN Reason: fever/pain Stop: 03/09/18 13:42 Calcium/Vitamin D (Oscal W/Vitamin D) 1 tab PO BID [facility] Stop: 03/09/18 16:59 Last Admin: 01/09/18 10:17 Dose: 1 tab Cholecalciferol (Vitamin D3) 1,000 iu PO DAILY [facility] Stop: 03/09/18 13:44 Last Admin: 01/09/18 10:17 Dose: 1,000 iu Divalproex Sodium (Depakote Er) 500 mg PO TID [facility]; Protocol Stop: 03/09/18 13:59 Last Admin: 01/09/18 14:21 Dose: 500 mg Docusate Sodium (Colace) 100 mg PO DAILY [facility] Stop: 03/09/18 13:44 Last Admin: 01/09/18 10:17 Dose: 100 mg Escitalopram Oxalate (Lexapro) 10 mg PO DAILY [facility]; Protocol Stop: 03/09/18 13:44 Last Admin: 01/09/18 10:16 Dose: 10 mg Finasteride (Proscar) 5 mg PO HS [facility]; Protocol Stop: 03/09/18 20:59 Last Admin: 01/08/18 21:05 Dose: 5 mg Sodium Chloride (Nacl 0.9%) 1,000 mls @ 100 mls/hr IV .Q10H [facility] Stop: 03/08/18 17:44 Last Admin: 01/09/18 03:31 Dose: 100 mls/hr Ceftriaxone Sodium 1 gm/ (Sodium Chloride) 50 mls @ 100 mls/hr IV Q24HR [facility] Stop: 03/09/18 16:59 Last Admin: 01/08/18 16:19 Dose: 100 mls/hr Ciprofloxacin (Cipro 200mg Premix Pb) 200 mg in 100 mls @ 100 mls/hr IV Q24HR [facility] Stop: 03/10/18 09:44 Last Admin: 01/09/18 10:21 Dose: 100 mls/hr Magnesium Hydroxide (Milk Of Magnesia) 30 ml PO DAILY PRN PRN Reason: Constipation Stop: 03/09/18 13:45 Metoprolol Tartrate (Lopressor) 25 mg PO BID [facility] Stop: 03/09/18 16:59 Last Admin: 01/09/18 10:16 Dose: 25 mg Olanzapine (Zyprexa) 5 mg PO HS [facility]; Protocol Stop: 03/09/18 20:59 Last Admin: 01/08/18 21:05 Dose: 5 mg Oxybutynin Chloride (Ditropan) 10 mg PO DAILY [facility] Stop: 03/10/18 08:59 Last Admin: 01/09/18 10:16 Dose: 10 mg Pantoprazole Sodium (Protonix) 40 mg PO DAILY [facility] Stop: 03/10/18 08:59 Last Admin: 01/09/18 10:17 Dose: 40 mg Rivaroxaban (Xarelto) 10 mg PO DAILY [facility] Stop: 03/10/18 08:59 Last Admin: 01/09/18 10:17 Dose: 10 mg Tamsulosin HCl (Flomax) 0.4 mg PO [facility] Stop: 03/09/18 20:59 Last Admin: 01/08/18 21:05 Dose: 0.4 mg Lab - Result Diagrams 01/09/18 04:25 01/09/18 04:25 Kidney fnc gradually improving w/ BUN/CR of 39/1.9 no further N/V/D Renal US revealed severe B/L hydroneprosis but nondistended bladder possible urethral stricture due to scar, fibrosis, mass continue IVF, encourage po intake Urology consult f/u electrolytes, cbc Nutritional Asmnt/Malnutr-PDOC - Dietary Evaluation Malnutrition Findings (Please click <Entered> for more info): Nutritional Asmnt/Malnutrition Start: 01/08/18 11: 06 Text: Status: Complete Freq: Protocol: Document 01/08/18 11:07 VANDANAFER (Rec: 01/08/18 11:35 GALINDOJosé [email or web address]) Nutritional Asmnt/Malnutrition Patient General Information Nutritional Screening High Risk Consult Diagnosis acute renal insufficient, urosepsis Pertinent Medical Hx/Surgical Hx HTN, dementia, depression, schizophrenia Subjective Information Consult receved for wound. Pt seen lying in bed at time of visit, awake, non-verbal. Per SENIOR MEDICAL BILLING SPECIALIST, pt only consumed liquid from breakfast tray today. Observed pt was able to eat chocolate chip cookie, pt did not want the soup. Current Diet Order/ Nutrition Support low sodium Pertinent Medications nacl 0.9% Pertinent Labs 01/08 cl 109, BUN 60, Cr 2.5, Glucose 84 01/07 BUN 68, Cr 2.9, glucose 134 Nutritional Hx/Data Height 1.68 m Height (Calculated Centimeters) 167.6 Current Weight (lbs) 63.957 kg Weight (Calculated Kilograms) 64.0 Weight (Calculated Grams) 68520.5 [place] Body Weight 142 Body Mass Index (BMI) 22.7 GI Symptoms GI Symptoms None Difficult in: None Skin Integrity/Comment: reddened to left arm, left buttocks, LT back big toe open wound to left toe, left lower leg scar to left ankle gillian score 11 Current %PO Good (75-100%) Estimated Nutritional Goals BEE in Kcals: Using Current wt Calories/Kcals/Kg 25-30 Kcals Calculated 9560-5294 Protein: Using Current wt Protein g/k.7-0.8 monitor renal labs Protein Calculated 45-51 Fluid: ml per MD Nutritional Problem 2. Problem Problem increased nutrition needs Etiology increased metabolic demand for wound healing Signs/Symptoms: open wound 1. Problem Problem altered nutrition related labs Etiology renal dysfunction Signs/Symptoms: BUN 60, Cr 2.5 Malnutrition Alert Is there a minimum of two criteria No selected? Query Text:Check all the applicable criteria. A minimum of two criteria are recommended for diagnosis of either severe or non-severe malnutrition. Malnutrition Related to Morbid Obesity Malnutrition related to morbid obesity No Intervention/Recommendation Comments 1. Continue with low sodium diet as ordered. Consider adding supplements if PO intake not meeting nutritional needs. Nurses to assist pt with all meals. 2. Add James BID fot wound healing. 3. Monitor renal labs. Consider to limit protein intake if BUN/Cr continue elevated when PO intake >75%. 4. Monitor PO intake, wt, labs and skin integrity 5. F/U as high risk in 2-3 days, 01/10-01/11, PO check Expected Outcomes/Goals Expected Outcomes/Goals 1. PO intake to meet at least 75% of nutritional needs. 2. Wt stability, skin to remain intact, labs to approach WNL.
[2018-01-09] MEDS: cefTRIAXone 1 GM in Sodium Chloride 0.9% 50 ML IV SCH (17:39)
--- NOTE | 2018-01-09 23:24 | Consultation ---
DATE OF CONSULTATION: 01/08/2018 ATTENDING: Dr. Blayne Vargas. DIGITAL [employer]ETING PROGRAM MANAGER: Luis Felipe Brand M.D. REASON FOR CONSULTATION: Worsening kidney function, electrolyte imbalance, and fluid management. HISTORY OF PRESENT ILLNESS: This is a 77-year-old male with past medical history of severe intellectual disability, who came in because of nausea and vomiting. Two days prior to admission, the patient developed nausea and vomiting and subsequently diarrhea x 6. A few hours prior to admission, his condition deteriorated. He became very weak. He was then brought to the Emergency Room. His temperature was 96.6 with a white count of 11.4. He has no history of kidney failure; however, his BUN/creatinine were 68/2.9. His urinalysis was suggestive of a complicated UTI. PAST MEDICAL HISTORY: 1. Severe intellectual disability. 2. Paranoid schizophrenia. 3. Essential hypertension. 4. BPH. 5. Depression. 6. Lower extremity DVT. 7. Epilepsy. CURRENT MEDICATIONS: He is currently on acetaminophen, calcium carbonate, ceftriaxone, cholecalciferol, Cipro, divalproex, docusate sodium, escitalopram, finasteride, magnesium hydroxide, metoprolol, olanzapine, oxybutynin, pantoprazole, rivaroxaban, tamsulosin. ALLERGIES: NIACIN. SOCIAL AND FAMILY HISTORY: I was not able to obtain directly from the patient because he remains nonverbal at the present time. REVIEW OF SYSTEMS: Again, I was not able to decipher directly from the patient because of the same reason. PHYSICAL EXAMINATION: GENERAL: The patient is awake, remains nonverbal, but not in any form of distress. VITAL SIGNS: His blood pressure 118/70, pulse 76, temperature 98.1 degrees. SKIN: Poor turgor, warm, no rash, no jaundice appreciated. HEENT: Head normocephalic, atraumatic. Eyes: Extraocular muscles intact. Anicteric sclerae. [place] conjunctivae. Nose, midline nasal septum. Mouth, dry mucosa, adequate dentition. NECK: Supple, no adenopathy, no thyromegaly, no bruits. Trachea palpated in the midline. CHEST AND CARDIOVASCULAR: S1, S2. No rub, murmur nor gallop appreciated. Point of maximal impulse fifth intercostal space, left midclavicular line. No abdominal or femoral bruits appreciated. LUNGS: Equal expansion, no use of accessory muscles. No supraclavicular retractions. Decreased breath sounds, clear to auscultation without any wheeze. ABDOMEN: Mildly globular, soft. Positive for bowel sounds. No bruits either diastolic or systolic. RECTAL: Lax sphincter tone. GENITOURINARY: Normal appearing male genitalia. MUSCULOSKELETAL: No effusions present in his joints with adequate range of motion. EXTREMITIES: No evidence of any edema, cyanosis nor clubbing with palpable femoral, popliteal and dorsalis pedis pulses. NEUROLOGIC: The patient is awake; however, unable to follow my neuro commands, so I was not able to pursue further my neuro exam. LABORATORY DATA: Labs did reveal white count 12.6, hemoglobin 11.1, hematocrit 31.7, platelets 214, polys 75.1%. Sodium 138, potassium 4.7, chloride 107, bicarb 22, BUN 39, creatinine 1.9, glucose 85, calcium 8.9, phosphorus 2.6, magnesium 1.6, albumin 3.5. TSH 5.8. IMPRESSION: 1. Acute kidney injury. The patient has had nausea and vomiting along with diarrhea for several days now. He has not been able to replenish both sensible and insensible fluid losses. He developed dehydration. This was supported by his dry oral mucosa, poor skin turgor as well as well as low blood pressure. His prerenal azotemia eventually progressed to acute tubular injury. He also has ongoing complicated UTI, which could give rise to development of acute interstitial nephritis. He has a longstanding history of BPH and currently on tamsulosin as well as Proscar. Thus, he may have post-renal component in the form of outlet obstruction. 2. Nausea and vomiting along with diarrhea is likely secondary to acute gastroenteritis. 3. Dehydration. 4. Severe intellectual disability. 5. Paranoid schizophrenia. 6. Essential hypertension. 7. Benign prostatic hypertrophy. 8. Status post depression. 9. Lower extremity deep venous thrombosis. 10. Epilepsy. PLAN: 1. Continue with IV hydration. 2. Urine C and S. 3. Rocephin and Cipro. 4. Urine sodium, eosinophils, and creatinine. 5. Urine microalbumin to creatinine ratio. 6. Renal ultrasound. 7. Encourage p.o. intake. Thank you, Dr. Vargas for this consult. We will follow the patient closely with you. [facility]# [id number]
[2018-01-10 08:00] LABS: % BASOPHILS 0.4 % (0.0-2.0); % LYMPHOCYTES 10.1 % (20.0-50.0); % MONOCYTES 8.1 % (2.0-10.0); % NEUTROPHILS 79.4 % (40.0-80.0); BASOPHILE ABSOLUTE 0.1 Th/cumm (0-0.2); EOSINOPHILE ABSOLUTE 0.3 Th/cmm (0.1-0.4); HEMATOCRIT 31.7 % (41.0-60); HEMOGLOBIN 10.9 gm/dL (12-16); LYMPHOCYTE ABSOLUTE 1.5 Th/cmm (1.5-3.0); MEAN CELL VOLUME 95.9 fl (80-99); MEAN CORPUSCULAR HEMOGLOBIN 33.1 pg (27.0-31.0); MEAN CORPUSCULAR HGB CONC 34.5 pg (28.0-36.0); MEAN PLATELET VOLUME 6.7 fl; MONOCYTE ABSOLUTE 1.2 Th/cmm (0.3-1.0); NEUTROPHILE ABSOLUTE 11.5 Th/cmm (1.8-8.0); PLATELET COUNT 208 Th/cmm (150-400); RED CELL DISTRIBUTION WIDTH 12.1 % (11.5-20.0); WHITE BLOOD COUNT 14.6 Th/cmm (4.8-10.8)
[2018-01-10 08:13] LABS: ALB/GLOB RATIO 0.9 (1.0-1.8); ALBUMIN 2.9 gm/dL (4.2-5.5); ALKALINE PHOSPHATASE 27 U/L (34-104); ANION GAP 11.8 (7.0-16.0); BILIRUBIN,TOTAL 0.4 mg/dL (0.3-1.0); BUN - UREA NITROGEN 29 mg/dL (7-25); CARBON DIOXIDE 23.7 mEq/L (21.0-31.0); CHLORIDE 108 mEq/L (98-107); CHOLESTEROL 126 mg/dL (<200); CREATININE - SERUM 1.9 mg/dL (0.7-1.3); GLUCOSE 92 mg/dL (70-105); HDL -HIGH DENSITY LIPOPROTEIN 27 mg/dL (23-92); MAGNESIUM 1.9 mg/dL (1.9-2.7); POTASSIUM SERUM 4.5 mEq/L (3.5-5.1); SGOT 19 U/L (13-39); SGPT/ALT 10 U/L (7-52); SODIUM SERUM 139 mEq/L (136-145); TOTAL PROTEIN,SERUM 6.2 gm/dL (6.0-8.3); TRIGLYCERIDES 176 mg/dL (<150)
[2018-01-10 08:31] LABS: INR 1.13 (0.5-1.4); PROTHROMBIN TIME (TEST) 11.6 SECONDS (9.5-11.5)
[2018-01-10] MEDS: Sodium Chloride 0.9% 1,000 ML IV SCH ×2 (09:19→22:24)
[2018-01-10] MEDS: Calcium Carb/Vit D 500 mg/200 U Tab PO SCH ×2 (09:20→19:41)
[2018-01-10] MEDS: Pantoprazole 40 mg EC Tab PO SCH (09:21)
--- NOTE | 2018-01-10 09:29 | Diagnostic Imaging Report ---
Exam: Chest x-ray HISTORY preop Findings: Frontal examination of chest upright reviewed the study demonstrates cardiomegaly. No acute pulmonic demonstrates an noted the right basilar atelectasis appreciated. The costophrenic angles are clear. Bony thorax intact. IMPRESSION: right basilar atelectasis Cardiomegaly.
--- NOTE | 2018-01-10 14:02 | General Progress Note ---
Subjective - Review of Systems Service Date: 01/10/18 Subjective: sleeping, comfortable; no further N/V, diarrhea Objective - Results Result Diagrams: 01/10/18 07:45 01/10/18 07:45 Recent Labs: Laboratory Last Values WBC 14.6 Th/cmm (4.8-10.8) H 01/10/18 07:45 RBC 3.30 Mil/cmm (3.80-5.80) L 01/10/18 07:45 Hgb 10.9 gm/dL (12-16) L 01/10/18 07:45 Hct 31.7 % (41.0-60) L 01/10/18 07:45 MCV 95.9 fl (80-99) 01/10/18 07:45 MCH 33.1 pg (27.0-31.0) H 01/10/18 07:45 MCHC Differential 34.5 pg (28.0-36.0) 01/10/18 07:45 RDW 12.1 % (11.5-20.0) 01/10/18 07:45 Plt Count 208 Th/cmm (150-400) 01/10/18 07:45 MPV 6.7 fl 01/10/18 07:45 Neutrophils % 79.4 % (40.0-80.0) 01/10/18 07:45 Lymphocytes % 10.1 % (20.0-50.0) L 01/10/18 07:45 Monocytes % 8.1 % (2.0-10.0) 01/10/18 07:45 Eosinophils % 2.0 % (0.0-5.0) 01/10/18 07:45 Basophils % 0.4 % (0.0-2.0) 01/10/18 07:45 Eos Smear Source URINE 01/08/18 11:55 Eos Smear Total Cells NONE SEEN (NONE SEEN) 01/08/18 11:55 PT 11.6 SECONDS (9.5-11.5) H 01/10/18 07:45 INR 1.13 (0.5-1.4) 01/10/18 07:45 PTT (Actin FS) 24.2 SECONDS (26.0-38.0) L 01/10/18 07:45 Sodium 139 mEq/L (136-145) 01/10/18 07:45 Potassium 4.5 mEq/L (3.5-5.1) 01/10/18 07:45 Chloride 108 mEq/L (98-107) H 01/10/18 07:45 Carbon Dioxide 23.7 mEq/L (21.0-31.0) 01/10/18 07:45 Anion Gap 11.8 (7.0-16.0) 01/10/18 07:45 BUN 29 mg/dL (7-25) H 01/10/18 07:45 Creatinine 1.9 mg/dL (0.7-1.3) H 01/10/18 07:45 Est GFR ( Amer) TNP 01/10/18 07:45 Est GFR (Non-Af Amer) TNP 01/10/18 07:45 BUN/Creatinine Ratio 15.3 01/10/18 07:45 Glucose 92 mg/dL (70-105) 01/10/18 07:45 Calcium 9.0 mg/dL (8.6-10.3) 01/10/18 07:45 Phosphorus 2.6 mg/dL (2.5-5.0) 01/09/18 04:25 Magnesium 1.9 mg/dL (1.9-2.7) 01/10/18 07:45 Total Bilirubin 0.4 mg/dL (0.3-1.0) 01/10/18 07:45 AST 19 U/L (13-39) 01/10/18 07:45 ALT 10 U/L (7-52) 01/10/18 07:45 Alkaline Phosphatase 27 U/L (34-104) L 01/10/18 07:45 Creatine Kinase 27 U/L (30-223) L 01/07/18 13:50 Troponin I 0.02 ng/mL (0.01-0.05) 01/07/18 13:50 B-Natriuretic Peptide 51.8 pg/mL (5.0-100.0) 01/07/18 13:50 Total Protein 6.2 gm/dL (6.0-8.3) 01/10/18 07:45 Albumin 2.9 gm/dL (4.2-5.5) L 01/10/18 07:45 Globulin 3.3 gm/dL 01/10/18 07:45 Albumin/Globulin Ratio 0.9 (1.0-1.8) L 01/10/18 07:45 Triglycerides 176 mg/dL (<150) H 01/10/18 07:45 Cholesterol 126 mg/dL (<200) 01/10/18 07:45 LDL Cholesterol Direct 77 mg/dL (75-193) 01/10/18 07:45 HDL Cholesterol 27 mg/dL (23-92) 01/10/18 07:45 Amylase 29 U/L (29-103) 01/07/18 13:50 Lipase 63 U/L (11-82) 01/07/18 13:50 TSH 5.80 uIU/ml (0.34-5.60) H 01/08/18 06:05 Urine Source CLEAN C 01/07/18 15:15 Urine Color YELLOW 01/07/18 15:15 Urine Clarity CLOUDY (CLEAR) 01/07/18 15:15 Urine pH 6.5 (4.6 - 8.0) 01/07/18 15:15 Ur Specific [place] 1.020 (1.005-1.030) 01/07/18 15:15 Urine Protein 100 mg/dL (NEGATIVE) H 01/07/18 15:15 Urine Glucose (UA) NEGATIVE mg/dL (NEGATIVE) 01/07/18 15:15 Urine Ketones NEGATIVE mg/dL (NEGATIVE) 01/07/18 15:15 Urine Blood LARGE (NEGATIVE) H 01/07/18 15:15 Urine Nitrate POSITIVE (NEGATIVE) H 01/07/18 15:15 Urine Bilirubin NEGATIVE (NEGATIVE) 01/07/18 15:15 Urine Urobilinogen 0.2 E.U./dL (0.2 - 1.0) 01/07/18 15:15 Ur Leukocyte Esterase LARGE (NEGATIVE) H 01/07/18 15:15 Urine RBC 5-10 /hpf (0-5) H 01/07/18 15:15 Urine WBC 50-100 /hpf (0-5) H 01/07/18 15:15 Ur Epithelial Cells FEW /lpf (FEW) 01/07/18 15:15 Urine Bacteria MANY /hpf (NONE SEEN) H 01/07/18 15:15 Ur Random Sodium 119 mmol/L 01/08/18 11:55 Urine Creatinine 74.0 mg/dl (39.0-259.0) 01/08/18 11:55 Microalb/Creat Ratio 195.2 mg/g creat (0.0-30.0) H 01/08/18 11:55 - Physical Exam Vitals and I&O: Vital Signs Temp 97.4 F 01/10/18 11:41 Pulse 61 01/10/18 11:41 Resp 18 01/10/18 11:41 BP 121/63 01/10/18 11:41 Pulse Ox 97 01/10/18 11:41 Intake & Output 01/09/18 01/10/18 01/10/18 18:59 06:59 18:59 Intake Total 1550 1000 Balance 1550 1000 Weight (lbs) 63.957 kg Intake: Intake, IV Amount 1000 1000 Sodium Chloride 0.9% 1, 1000 1000 000 ml @ 100 mls/hr IV . Q10H [facility] Rx#:[id number] Oral 550 Other: # Voids 3 # Bowel Movements 1 Stool Characteristics Soft Formed Weight Source Bedscale Active Medications: Current Medications Acetaminophen (Tylenol) 650 mg PO Q6H PRN PRN Reason: fever/pain Stop: 03/09/18 13:42 Calcium/Vitamin D (Oscal W/Vitamin D) 1 tab PO BID [facility] Stop: 03/09/18 16:59 Last Admin: 01/10/18 09:20 Dose: 1 tab Cholecalciferol (Vitamin D3) 1,000 iu PO DAILY [facility] Stop: 03/09/18 13:44 Last Admin: 01/10/18 09:21 Dose: 1,000 iu Divalproex Sodium (Depakote Er) 500 mg PO TID [facility]; Protocol Stop: 03/09/18 13:59 Last Admin: 01/10/18 09:21 Dose: 500 mg Docusate Sodium (Colace) 100 mg PO DAILY [facility] Stop: 03/09/18 13:44 Last Admin: 01/10/18 09:21 Dose: 100 mg Escitalopram Oxalate (Lexapro) 10 mg PO DAILY [facility]; Protocol Stop: 03/09/18 13:44 Last Admin: 01/10/18 09:21 Dose: 10 mg Finasteride (Proscar) 5 mg PO HS [facility]; Protocol Stop: 03/09/18 20:59 Last Admin: 01/09/18 20:15 Dose: 5 mg Sodium Chloride (Nacl 0.9%) 1,000 mls @ 100 mls/hr IV .Q10H [facility] Stop: 03/08/18 17:44 Last Admin: 01/10/18 09:19 Dose: 100 mls/hr Ciprofloxacin (Cipro 200mg Premix Pb) 200 mg in 100 mls @ 100 mls/hr IV Q24HR [facility] Stop: 03/10/18 09:44 Last Admin: 01/09/18 10:21 Dose: 100 mls/hr Vancomycin HCl 1 gm/ Sodium (Chloride) 250 mls @ 166.667 mls/hr IV Q24H [facility] Stop: 03/11/18 13:44 Magnesium Hydroxide (Milk Of Magnesia) 30 ml PO DAILY PRN PRN Reason: Constipation Stop: 03/09/18 13:45 Metoprolol Tartrate (Lopressor) 25 mg PO BID [facility] Stop: 03/09/18 16:59 Last Admin: 01/10/18 09:22 Dose: 25 mg Olanzapine (Zyprexa) 5 mg PO HS [facility]; Protocol Stop: 03/09/18 20:59 Last Admin: 01/09/18 20:16 Dose: 5 mg Oxybutynin Chloride (Ditropan) 10 mg PO DAILY [facility] Stop: 03/10/18 08:59 Last Admin: 01/10/18 09:21 Dose: 10 mg Pantoprazole Sodium (Protonix) 40 mg PO DAILY [facility] Stop: 03/10/18 08:59 Last Admin: 01/10/18 09:21 Dose: 40 mg Tamsulosin HCl (Flomax) 0.4 mg PO BID [facility] Stop: 03/11/18 16:59 General: Alert, No acute distress HEENT: Atraumatic, Mucous membr. moist/pink Neck: Supple, +2 carotid pulse wo bruit Cardiovascular: Regular rate, Normal S1, Normal S2 Lungs: Clear to auscultation Abdomen: Bowel sounds, Soft Extremities: no Edema Neurological: Sensation intact Skin: no Significant lesion Psych/Mental Status: Mood NL - Procedures Procedures: Procedures Procedure Code Date C & S-INTEGUMENT 91.63 07/11/94 CULTURE OTHR SPECIMN AEROBIC 36327 07/11/94 DX ULTRASOUND-VASCULAR 88.77 02/13/95 ELECTROCARDIOGRAPH MONIT 89.54 02/13/95 INJECT ANTIBIOTIC 99.21 11/25/94 INJECT ANTICOAGULANT 99.19 07/11/94 MICROBE SUSCEPTIBLE DISK 58271 07/11/94 OTHER C.A.T. SCAN 88.38 02/13/95 URINARY SYSTEM X-RAY NEC 87.79 07/11/94 [place] THERAPY 98531 07/11/94 [facility] TREATMENT 93.32 07/11/94 Assessment/Plan - Assessment Assessment: [place] Acute gastroenteritis Dehydration Severe B/L hydronephrosis Severe ID Paranoid schizo Ess Htn BPH Depression LE DVT Epilepsy - Plan Plan: Lab - Result Diagrams 01/09/18 04:25 01/09/18 04:25 Current Medications Acetaminophen (Tylenol) 650 mg PO Q6H PRN PRN Reason: fever/pain Stop: 03/09/18 13:42 Calcium/Vitamin D (Oscal W/Vitamin D) 1 tab PO BID [facility] Stop: 03/09/18 16:59 Last Admin: 01/09/18 10:17 Dose: 1 tab Cholecalciferol (Vitamin D3) 1,000 iu PO DAILY [facility] Stop: 03/09/18 13:44 Last Admin: 01/09/18 10:17 Dose: 1,000 iu Divalproex Sodium (Depakote Er) 500 mg PO TID [facility]; Protocol Stop: 03/09/18 13:59 Last Admin: 01/09/18 14:21 Dose: 500 mg Docusate Sodium (Colace) 100 mg PO DAILY [facility] Stop: 03/09/18 13:44 Last Admin: 01/09/18 10:17 Dose: 100 mg Escitalopram Oxalate (Lexapro) 10 mg PO DAILY [facility]; Protocol Stop: 03/09/18 13:44 Last Admin: 01/09/18 10:16 Dose: 10 mg Finasteride (Proscar) 5 mg PO HS [facility]; Protocol Stop: 03/09/18 20:59 Last Admin: 01/08/18 21:05 Dose: 5 mg Sodium Chloride (Nacl 0.9%) 1,000 mls @ 100 mls/hr IV .Q10H [facility] Stop: 03/08/18 17:44 Last Admin: 01/09/18 03:31 Dose: 100 mls/hr Ceftriaxone Sodium 1 gm/ (Sodium Chloride) 50 mls @ 100 mls/hr IV Q24HR [facility] Stop: 03/09/18 16:59 Last Admin: 01/08/18 16:19 Dose: 100 mls/hr Ciprofloxacin (Cipro 200mg Premix Pb) 200 mg in 100 mls @ 100 mls/hr IV Q24HR [facility] Stop: 03/10/18 09:44 Last Admin: 01/09/18 10:21 Dose: 100 mls/hr Magnesium Hydroxide (Milk Of Magnesia) 30 ml PO DAILY PRN PRN Reason: Constipation Stop: 03/09/18 13:45 Metoprolol Tartrate (Lopressor) 25 mg PO BID [facility] Stop: 03/09/18 16:59 Last Admin: 01/09/18 10:16 Dose: 25 mg Olanzapine (Zyprexa) 5 mg PO HS [facility]; Protocol Stop: 03/09/18 20:59 Last Admin: 01/08/18 21:05 Dose: 5 mg Oxybutynin Chloride (Ditropan) 10 mg PO DAILY [facility] Stop: 03/10/18 08:59 Last Admin: 01/09/18 10:16 Dose: 10 mg Pantoprazole Sodium (Protonix) 40 mg PO DAILY [facility] Stop: 03/10/18 08:59 Last Admin: 01/09/18 10:17 Dose: 40 mg Rivaroxaban (Xarelto) 10 mg PO DAILY [facility] Stop: 03/10/18 08:59 Last Admin: 01/09/18 10:17 Dose: 10 mg Tamsulosin HCl (Flomax) 0.4 mg PO HS [facility] Stop: 03/09/18 20:59 Last Admin: 01/08/18 21:05 Dose: 0.4 mg Lab - Result Diagrams 01/10/18 07:45 01/10/18 07:45 Kidney fnc gradually improving w/ BUN/CR of 29/1.9 no further N/V/D Renal US revealed severe B/L hydroneprosis but nondistended bladder possible ureteral stricture due to scar, fibrosis, mass, calculi? continue IVF, encourage po intake Urology consult f/u electrolytes, cbc Nutritional Asmnt/Malnutr-PDOC - Dietary Evaluation Malnutrition Findings (Please click <Entered> for more info): Nutritional Asmnt/Malnutrition Start: 01/08/18 11: 06 Text: Status: Complete Freq: Protocol: Document 01/08/18 11:07 CORTEZ (Rec: 01/08/18 11:35 CORTEZ [id number]) Nutritional Asmnt/Malnutrition Patient General Information Nutritional Screening High Risk Consult Diagnosis acute renal insufficient, urosepsis Pertinent Medical Hx/Surgical Hx HTN, dementia, depression, schizophrenia Subjective Information Consult receved for wound. Pt seen lying in bed at time of visit, awake, non-verbal. Per [employer], pt only consumed liquid from breakfast tray today. Observed pt was able to eat chocolate chip cookie, pt did not want the soup. Current Diet Order/ Nutrition Support low sodium Pertinent Medications nacl 0.9% Pertinent Labs 01/08 cl 109, BUN 60, Cr 2.5, Glucose 84 01/07 BUN 68, Cr 2.9, glucose 134 Nutritional Hx/Data Height 1.68 m Height (Calculated Centimeters) 167.6 Current Weight (lbs) 63.957 kg Weight (Calculated Kilograms) 64.0 Weight (Calculated Grams) 26002.5 [place] Body Weight 142 Body Mass Index (BMI) 22.7 GI Symptoms GI Symptoms None Difficult in: None Skin Integrity/Comment: reddened to left arm, left buttocks, LT back big toe open wound to left toe, left lower leg scar to left ankle gillian score 11 Current %PO Good (75-100%) Estimated Nutritional Goals BEE in Kcals: Using Current wt Calories/Kcals/Kg 25-30 Kcals Calculated 7928-2555 Protein: Using Current wt Protein g/k.7-0.8 monitor renal labs Protein Calculated 45-51 Fluid: ml per MD Nutritional Problem 2. Problem Problem increased nutrition needs Etiology increased metabolic demand for wound healing Signs/Symptoms: open wound 1. Problem Problem altered nutrition related labs Etiology renal dysfunction Signs/Symptoms: BUN 60, Cr 2.5 Malnutrition Alert Is there a minimum of two criteria No selected? Query Text:Check all the applicable criteria. A minimum of two criteria are recommended for diagnosis of either severe or non-severe malnutrition. Malnutrition Related to Morbid Obesity Malnutrition related to morbid obesity No Intervention/Recommendation Comments 1. Continue with low sodium diet as ordered. Consider adding supplements if PO intake not meeting nutritional needs. Nurses to assist pt with all meals. 2. Add Jamse BID fot wound healing. 3. Monitor renal labs. Consider to limit protein intake if BUN/Cr continue elevated when PO intake >75%. 4. Monitor PO intake, wt, labs and skin integrity 5. F/U as high risk in 2-3 days, 01/10-01/11, PO check Expected Outcomes/Goals Expected Outcomes/Goals 1. PO intake to meet at least 75% of nutritional needs. 2. Wt stability, skin to remain intact, labs to approach WNL.
[2018-01-10] MEDS: Ciprofloxacin 200mg Premix PB 200 MG/100 ML BAG IV SCH (16:21)
[2018-01-10 23:46] LABS: URINE SOURCE RANDOM
--- NOTE | 2018-01-10 23:46 | Consultation ---
DATE OF CONSULTATION: 01/10/2018 HISTORY OF PRESENT ILLNESS: This 77-year-old male who was seen and examined. There is no history available from the patient and the patient has been uncooperative on nurses. He is refusing the lab and echocardiograms to be done. From the chart the patient was admitted here with a urinary tract infection, gastroenteritis, leukocytosis, acute renal insufficiency, history of hypertension, history of depression, psychotic disorders and benign prostatic hypertrophy. Apparently, this patient has been seen by Urologist and possibly is scheduled for surgery, TURP. The patient does not give any history. On direct questioning him sometimes he answers. There was no history of chest pains, no shortness of breath, no history of PND, no history of orthopnea, no history of cough, no history of fever, no history of hemoptysis. No history of dizziness. No history of swelling over the legs. PAST MEDICAL HISTORY: As mentioned above. FAMILY HISTORY: Not available from the patient. REVIEW OF SYSTEMS: As mentioned above. History of smoking and alcohol is not available to me. PHYSICAL EXAMINATION: VITAL SIGNS: Heart rate was 70, blood pressure is 140/60, respiration 16-18, temperature 98.5. SKIN: Normal. HEAD: Normocephalic. EYES: Conjunctivae were pink. There is no icterus in the eyes. Pupils reactive to light. NECK: There were no increased jugular venous distention, no thyromegaly, no lymphadenopathy. Carotids equal both sides. CHEST: Bilaterally symmetrical, moved well with respiration. Respiratory movements equal both sides. Trachea is central. There is note to percussion. Breath sound normal. CARDIOVASCULAR SYSTEM: PMI not well localized and no positional thrill. No parasternal heave. S1 normal, S2 physiologic. There were no S3, no rub. ABDOMEN: Soft, no tenderness, no rigidity, no guarding, no organomegaly. Bowel sounds normal. ABDOMEN: Bowel sounds normal. CENTRAL NERVOUS SYSTEM: Did not allow me to check any reflexes or sensations. LABORATORY DATA: Looking at the labs, urine culture showed E. coli 100,000 colony counts as started to levofloxacin. WBC was 12.6, hemoglobin 11.1, hematocrit 31.7, platelet count was 214. Sodium 138, potassium 4.8, chloride 107, CO2 of 22.2, glucose is 85, BUN 39, creatinine 1.9. BNP 51.8. Troponin was 0.02, cholesterol 160, triglycerides 201, HDL 36, LDL 110. Amylase 29, lipase 63. INR 1.30. Renal ultrasound showed severe bilateral hydronephrosis. Please correlate clinical findings. Nondistended urinary bladder, a bladder wall thickening is noted. EKG showed sinus rhythm, interventricular conduction delay, poor R-wave progression in the precordial leads, which are due to chronic obstructive pulmonary disease or some damage to the anterior forces. IMPRESSION: Hypertension, hyperlipidemia, history of DVT, BPH, UTI, renal insufficiency, psych disorder, depression, history of recurrent psychotic symptoms, uncooperative patient. Some labs and echocardiogram was ordered last night on this patient, but the patient has refused to do lab and the echocardiogram also. We may need to get echocardiogram to evaluate left ventricular function and valvular structure, left ventricular wall motion study. The patient should be on Lipitor also at least 20 mg daily because LDL is high, so we should try to get an echocardiogram in a.m. Repeat EKG. The patient should be on some statins. Blood pressure medication is ARB. Thank you. Further recommendation will be made depending on the list of the tests available. JOB# [id number]
[2018-01-10 23:48] LABS: URINE BILIRUBIN NEGATIVE (NEGATIVE); URINE BLOOD LARGE (NEGATIVE); URINE GLUCOSE (UA) NEGATIVE (NEGATIVE); URINE KETONE NEGATIVE (NEGATIVE); URINE LEUKOCYTE ESTERASE LARGE (NEGATIVE); URINE MICROSCOPIC INDICATED? YES; URINE NITRATE NEGATIVE (NEGATIVE); URINE PH 5.5 (4.6 - 8.0); URINE PROTEIN NEGATIVE (NEGATIVE); URINE UROBILINOGEN 0.2 E.U./dL (0.2 - 1.0)
[2018-01-11 00:19] LABS: URINE COLOR YELLOW
[2018-01-11 00:20] LABS: URINE CLARITY HAZY (CLEAR)
[2018-01-11 00:21] LABS: URINE BACTERIA MODERATE /hpf (NONE SEEN); URINE EPITHELIAL CELLS NONE SEEN /lpf (FEW); URINE RBC 0-2 /hpf (0-5)
[2018-01-11 06:50] LABS: % BASOPHILS 0.3 % (0.0-2.0); % EOSINOPHILS 3.4 % (0.0-5.0); % LYMPHOCYTES 11.2 % (20.0-50.0); % NEUTROPHILS 77.1 % (40.0-80.0); EOSINOPHILE ABSOLUTE 0.5 Th/cmm (0.1-0.4); HEMATOCRIT 30.3 % (41.0-60); HEMOGLOBIN 10.5 gm/dL (12-16); LYMPHOCYTE ABSOLUTE 1.5 Th/cmm (1.5-3.0); MEAN CELL VOLUME 97.2 fl (80-99); MEAN CORPUSCULAR HEMOGLOBIN 33.5 pg (27.0-31.0); MEAN CORPUSCULAR HGB CONC 34.5 pg (28.0-36.0); MEAN PLATELET VOLUME 7.2 fl; MONOCYTE ABSOLUTE 1.1 Th/cmm (0.3-1.0); NEUTROPHILE ABSOLUTE 10.3 Th/cmm (1.8-8.0); PLATELET COUNT 197 Th/cmm (150-400); RED BLOOD COUNT 3.12 Mil/cmm (3.80-5.80); WHITE BLOOD COUNT 13.4 Th/cmm (4.8-10.8)
[2018-01-11 06:56] LABS: INR 1.07 (0.5-1.4); PROTHROMBIN TIME (TEST) 11.1 SECONDS (9.5-11.5)
[2018-01-11 07:04] LABS: ALB/GLOB RATIO 0.9 (1.0-1.8); ALBUMIN 2.8 gm/dL (4.2-5.5); ALKALINE PHOSPHATASE 25 U/L (34-104); ANION GAP 11.8 (7.0-16.0); BILIRUBIN,TOTAL 0.4 mg/dL (0.3-1.0); CALCIUM SERUM 8.7 mg/dL (8.6-10.3); CARBON DIOXIDE 21.2 mEq/L (21.0-31.0); CHLORIDE 109 mEq/L (98-107); CHOLESTEROL 120 mg/dL (<200); CREATININE - SERUM 1.6 mg/dL (0.7-1.3); GLUCOSE 89 mg/dL (70-105); HDL -HIGH DENSITY LIPOPROTEIN 25 mg/dL (23-92); SGOT 18 U/L (13-39); SGPT/ALT 10 U/L (7-52); SODIUM SERUM 138 mEq/L (136-145); TOTAL PROTEIN,SERUM 5.9 gm/dL (6.0-8.3); TRIGLYCERIDES 176 mg/dL (<150)
[2018-01-11 08:17] LABS: BUN - UREA NITROGEN 22 mg/dL (7-25)
[2018-01-11] MEDS: Atorvastatin Calcium 10 MG TAB PO SCH (09:49)
[2018-01-11] MEDS: Ciprofloxacin 200mg Premix PB 200 MG/100 ML BAG IV SCH (09:50)
[2018-01-11] MEDS: Calcium Carb/Vit D 500 mg/200 U Tab PO SCH ×2 (09:50→17:28)
[2018-01-11] MEDS: Pantoprazole 40 mg EC Tab PO SCH (09:50)
[2018-01-11] MEDS: Sodium Chloride 0.9% 1,000 ML IV SCH (10:00)
--- NOTE | 2018-01-11 10:59 | General Progress Note ---
Subjective - Review of Systems Service Date: 01/11/18 Subjective: sleeping, comfortable; no further N/V, diarrhea Objective - Results Result Diagrams: 01/11/18 05:52 01/11/18 05:52 Recent Labs: Laboratory Last Values WBC 13.4 Th/cmm (4.8-10.8) H 01/11/18 05:52 RBC 3.12 Mil/cmm (3.80-5.80) L 01/11/18 05:52 Hgb 10.5 gm/dL (12-16) L 01/11/18 05:52 Hct 30.3 % (41.0-60) L 01/11/18 05:52 MCV 97.2 fl (80-99) 01/11/18 05:52 MCH 33.5 pg (27.0-31.0) H 01/11/18 05:52 MCHC Differential 34.5 pg (28.0-36.0) 01/11/18 05:52 RDW 12.0 % (11.5-20.0) 01/11/18 05:52 Plt Count 197 Th/cmm (150-400) 01/11/18 05:52 MPV 7.2 fl 01/11/18 05:52 Neutrophils % 77.1 % (40.0-80.0) 01/11/18 05:52 Lymphocytes % 11.2 % (20.0-50.0) L 01/11/18 05:52 Monocytes % 8.0 % (2.0-10.0) 01/11/18 05:52 Eosinophils % 3.4 % (0.0-5.0) 01/11/18 05:52 Basophils % 0.3 % (0.0-2.0) 01/11/18 05:52 Eos Smear Source URINE 01/08/18 11:55 Eos Smear Total Cells NONE SEEN (NONE SEEN) 01/08/18 11:55 PT 11.1 SECONDS (9.5-11.5) 01/11/18 05:52 INR 1.07 (0.5-1.4) 01/11/18 05:52 PTT (Actin FS) 24.8 SECONDS (26.0-38.0) L 01/11/18 05:52 Sodium 138 mEq/L (136-145) 01/11/18 05:52 Potassium 4.0 mEq/L (3.5-5.1) 01/11/18 05:52 Chloride 109 mEq/L (98-107) H 01/11/18 05:52 Carbon Dioxide 21.2 mEq/L (21.0-31.0) 01/11/18 05:52 Anion Gap 11.8 (7.0-16.0) 01/11/18 05:52 BUN 22 mg/dL (7-25) 01/11/18 05:52 Creatinine 1.6 mg/dL (0.7-1.3) H 01/11/18 05:52 Est GFR ( Amer) TNP 01/11/18 05:52 Est GFR (Non-Af Amer) TNP 01/11/18 05:52 BUN/Creatinine Ratio 13.8 01/11/18 05:52 Glucose 89 mg/dL (70-105) 01/11/18 05:52 Calcium 8.7 mg/dL (8.6-10.3) 01/11/18 05:52 Phosphorus 2.6 mg/dL (2.5-5.0) 01/09/18 04:25 Magnesium 1.9 mg/dL (1.9-2.7) 01/10/18 07:45 Total Bilirubin 0.4 mg/dL (0.3-1.0) 01/11/18 05:52 AST 18 U/L (13-39) 01/11/18 05:52 ALT 10 U/L (7-52) 01/11/18 05:52 Alkaline Phosphatase 25 U/L (34-104) L 01/11/18 05:52 Creatine Kinase 27 U/L (30-223) L 01/07/18 13:50 Troponin I 0.02 ng/mL (0.01-0.05) 01/07/18 13:50 B-Natriuretic Peptide 51.8 pg/mL (5.0-100.0) 01/07/18 13:50 Total Protein 5.9 gm/dL (6.0-8.3) L 01/11/18 05:52 Albumin 2.8 gm/dL (4.2-5.5) L 01/11/18 05:52 Globulin 3.1 gm/dL 01/11/18 05:52 Albumin/Globulin Ratio 0.9 (1.0-1.8) L 01/11/18 05:52 Triglycerides 176 mg/dL (<150) H 01/11/18 05:52 Cholesterol 120 mg/dL (<200) 01/11/18 05:52 LDL Cholesterol Direct 74 mg/dL (75-193) L 01/11/18 05:52 HDL Cholesterol 25 mg/dL (23-92) 01/11/18 05:52 Amylase 29 U/L (29-103) 01/07/18 13:50 Lipase 63 U/L (11-82) 01/07/18 13:50 TSH 4.85 uIU/ml (0.34-5.60) 01/11/18 05:52 Urine Source RANDOM 01/10/18 23:30 Urine Color YELLOW 01/10/18 23:30 Urine Clarity HAZY (CLEAR) 01/10/18 23:30 Urine pH 5.5 (4.6 - 8.0) 01/10/18 23:30 Ur Specific [place] 1.010 (1.005-1.030) 01/10/18 23:30 Urine Protein NEGATIVE mg/dL (NEGATIVE) 01/10/18 23:30 Urine Glucose (UA) NEGATIVE mg/dL (NEGATIVE) 01/10/18 23:30 Urine Ketones NEGATIVE mg/dL (NEGATIVE) 01/10/18 23:30 Urine Blood LARGE (NEGATIVE) H 01/10/18 23:30 Urine Nitrate NEGATIVE (NEGATIVE) 01/10/18 23:30 Urine Bilirubin NEGATIVE (NEGATIVE) 01/10/18 23:30 Urine Urobilinogen 0.2 E.U./dL (0.2 - 1.0) 01/10/18 23:30 Ur Leukocyte Esterase LARGE (NEGATIVE) H 01/10/18 23:30 Urine RBC 0-2 /hpf (0-5) H 01/10/18 23:30 Urine WBC 6-10 /hpf (0-5) 01/10/18 23:30 Ur Epithelial Cells NONE SEEN /lpf (FEW) 01/10/18 23:30 Urine Bacteria MODERATE /hpf (NONE SEEN) H 01/10/18 23:30 Ur Random Sodium 119 mmol/L 01/08/18 11:55 Urine Creatinine 74.0 mg/dl (39.0-259.0) 11/22/18 11:55 Microalb/Creat Ratio 195.2 mg/g creat (0.0-30.0) H 01/08/18 11:55 - Physical Exam Vitals and I&O: Vital Signs Temp 97.7 F 01/11/18 07:40 Pulse 73 01/11/18 09:48 Resp 16 01/11/18 08:00 BP 139/66 01/11/18 09:48 Pulse Ox 98 01/11/18 07:40 Intake & Output 01/10/18 01/11/18 01/11/18 18:59 06:59 18:59 Intake Total 1100 1000 1000 Balance 1100 1000 1000 Weight (lbs) 67.222 kg Intake: Intake, IV Amount 1100 1000 1000 Ciprofloxacin 200mg 100 Premix PB 200 mg In 100 ml @ 100 mls/hr IV Q24HR [facility] Rx#:[id number] Sodium Chloride 0.9% 1, 1000 1000 1000 000 ml @ 100 mls/hr IV . Q10H [facility] Rx#:[id number] Other: # Voids 2 Weight Source Bedscale Active Medications: Current Medications Acetaminophen (Tylenol) 650 mg PO Q6H PRN PRN Reason: fever/pain Stop: 03/09/18 13:42 Atorvastatin Calcium (Lipitor) 20 mg PO DAILY [facility]; Protocol Stop: 03/12/18 08:59 Last Admin: 01/11/18 09:49 Dose: 20 mg Calcium/Vitamin D (Oscal W/Vitamin D) 1 tab PO BID [facility] Stop: 03/09/18 16:59 Last Admin: 01/11/18 09:50 Dose: 1 tab Cholecalciferol (Vitamin D3) 1,000 iu PO DAILY [facility] Stop: 03/09/18 13:44 Last Admin: 01/11/18 09:50 Dose: 1,000 iu Divalproex Sodium (Depakote Er) 500 mg PO TID [facility]; Protocol Stop: 03/09/18 13:59 Last Admin: 01/11/18 10:01 Dose: 500 mg Docusate Sodium (Colace) 100 mg PO DAILY [facility] Stop: 03/09/18 13:44 Last Admin: 01/11/18 09:50 Dose: 100 mg Escitalopram Oxalate (Lexapro) 10 mg PO DAILY [facility]; Protocol Stop: 03/09/18 13:44 Last Admin: 01/11/18 09:50 Dose: 10 mg Finasteride (Proscar) 5 mg PO [facility]; Protocol Stop: 03/09/18 20:59 Last Admin: 01/10/18 20:22 Dose: 5 mg Sodium Chloride (Nacl 0.9%) 1,000 mls @ 100 mls/hr IV .Q10H [facility] Stop: 03/08/18 17:44 Last Admin: 01/11/18 10:00 Dose: 100 mls/hr Ciprofloxacin (Cipro 200mg Premix Pb) 200 mg in 100 mls @ 100 mls/hr IV Q24HR [facility] Stop: 03/10/18 09:44 Last Admin: 01/11/18 09:50 Dose: 100 mls/hr Vancomycin HCl 1 gm/ Sodium (Chloride) 250 mls @ 166.667 mls/hr IV Q24H [facility] Stop: 03/11/18 13:44 Last Admin: 01/10/18 17:07 Dose: 166.667 mls/hr Magnesium Hydroxide (Milk Of Magnesia) 30 ml PO DAILY PRN PRN Reason: Constipation Stop: 03/09/18 13:45 Metoprolol Tartrate (Lopressor) 25 mg PO BID [facility] Stop: 03/09/18 16:59 Last Admin: 01/11/18 09:48 Dose: 25 mg Olanzapine (Zyprexa) 5 mg PO [facility]; Protocol Stop: 03/09/18 20:59 Last Admin: 01/10/18 20:22 Dose: 5 mg Oxybutynin Chloride (Ditropan) 10 mg PO DAILY [facility] Stop: 03/10/18 08:59 Last Admin: 01/11/18 09:50 Dose: 10 mg Pantoprazole Sodium (Protonix) 40 mg PO DAILY [facility] Stop: 03/10/18 08:59 Last Admin: 01/11/18 09:50 Dose: 40 mg Tamsulosin HCl (Flomax) 0.4 mg PO BID [facility] Stop: 03/11/18 16:59 Last Admin: 01/11/18 09:50 Dose: 0.4 mg General: Alert, No acute distress HEENT: Atraumatic, Mucous membr. moist/pink Neck: Supple, +2 carotid pulse wo bruit Cardiovascular: Regular rate, Normal S1, Normal S2 Lungs: Clear to auscultation Abdomen: Bowel sounds, Soft Extremities: no Edema Neurological: Sensation intact Skin: no Significant lesion Psych/Mental Status: Mood NL - Procedures Procedures: Procedures Procedure Code Date C & S-INTEGUMENT 91.63 07/11/94 CULTURE OTHR SPECIMN AEROBIC 34029 07/11/94 DX ULTRASOUND-VASCULAR 88.77 02/13/95 ELECTROCARDIOGRAPH MONIT 89.54 02/13/95 INJECT ANTIBIOTIC 99.21 11/25/94 INJECT ANTICOAGULANT 99.19 07/11/94 MICROBE SUSCEPTIBLE DISK 81725 07/11/94 OTHER C.A.T. SCAN 88.38 02/13/95 URINARY SYSTEM X-RAY NEC 87.79 07/11/94 [place] THERAPY 02625 07/11/94 WH[facility]L[place] TREATMENT 93.32 07/11/94 Assessment/Plan - Assessment Assessment: [place] Acute gastroenteritis Dehydration Severe B/L hydronephrosis Severe ID Paranoid schizo Ess Htn BPH Depression LE DVT Epilepsy - Plan Plan: Lab - Result Diagrams 01/09/18 04:25 01/09/18 04:25 Current Medications Acetaminophen (Tylenol) 650 mg PO Q6H PRN PRN Reason: fever/pain Stop: 03/09/18 13:42 Calcium/Vitamin D (Oscal W/Vitamin D) 1 tab PO BID [facility] Stop: 03/09/18 16:59 Last Admin: 01/09/18 10:17 Dose: 1 tab Cholecalciferol (Vitamin D3) 1,000 iu PO DAILY [facility] Stop: 03/09/18 13:44 Last Admin: 01/09/18 10:17 Dose: 1,000 iu Divalproex Sodium (Depakote Er) 500 mg PO TID [facility]; Protocol Stop: 03/09/18 13:59 Last Admin: 01/09/18 14:21 Dose: 500 mg Docusate Sodium (Colace) 100 mg PO DAILY [facility] Stop: 03/09/18 13:44 Last Admin: 01/09/18 10:17 Dose: 100 mg Escitalopram Oxalate (Lexapro) 10 mg PO DAILY [facility]; Protocol Stop: 03/09/18 13:44 Last Admin: 01/09/18 10:16 Dose: 10 mg Finasteride (Proscar) 5 mg PO HS [facility]; Protocol Stop: 03/09/18 20:59 Last Admin: 01/08/18 21:05 Dose: 5 mg Sodium Chloride (Nacl 0.9%) 1,000 mls @ 100 mls/hr IV .Q10H [facility] Stop: 03/08/18 17:44 Last Admin: 01/09/18 03:31 Dose: 100 mls/hr Ceftriaxone Sodium 1 gm/ (Sodium Chloride) 50 mls @ 100 mls/hr IV Q24HR [facility] Stop: 03/09/18 16:59 Last Admin: 01/08/18 16:19 Dose: 100 mls/hr Ciprofloxacin (Cipro 200mg Premix Pb) 200 mg in 100 mls @ 100 mls/hr IV Q24HR [facility] Stop: 03/10/18 09:44 Last Admin: 01/09/18 10:21 Dose: 100 mls/hr Magnesium Hydroxide (Milk Of Magnesia) 30 ml PO DAILY PRN PRN Reason: Constipation Stop: 03/09/18 13:45 Metoprolol Tartrate (Lopressor) 25 mg PO BID [facility] Stop: 03/09/18 16:59 Last Admin: 01/09/18 10:16 Dose: 25 mg Olanzapine (Zyprexa) 5 mg PO HS [facility]; Protocol Stop: 03/09/18 20:59 Last Admin: 01/08/18 21:05 Dose: 5 mg Oxybutynin Chloride (Ditropan) 10 mg PO DAILY [facility] Stop: 03/10/18 08:59 Last Admin: 01/09/18 10:16 Dose: 10 mg Pantoprazole Sodium (Protonix) 40 mg PO DAILY [facility] Stop: 03/10/18 08:59 Last Admin: 01/09/18 10:17 Dose: 40 mg Rivaroxaban (Xarelto) 10 mg PO DAILY [facility] Stop: 03/10/18 08:59 Last Admin: 01/09/18 10:17 Dose: 10 mg Tamsulosin HCl (Flomax) 0.4 mg PO HS [facility] Stop: 03/09/18 20:59 Last Admin: 01/08/18 21:05 Dose: 0.4 mg Lab - Result Diagrams 01/11/18 05:52 01/11/18 05:52 Kidney fnc gradually improving w/ BUN/CR of 22/1.6 no further N/V/D Renal US revealed severe B/L hydroneprosis but nondistended bladder possible ureteral stricture due to scar, fibrosis, mass, calculi? continue IVF, encourage po intake Urology consult f/u electrolytes, cbc WBC still elevated @ 13.4 Nutritional Asmnt/Malnutr-PDOC - Dietary Evaluation Malnutrition Findings (Please click <Entered> for more info): Nutritional Asmnt/Malnutrition Start: 01/08/18 11: 06 Text: Status: Complete Freq: Protocol: Document 01/08/18 11:07 GALINDOG (Rec: 01/08/18 11:35 LCSARANYAG [email or web address]) Nutritional Asmnt/Malnutrition Patient General Information Nutritional Screening High Risk Consult Diagnosis acute renal insufficient, urosepsis Pertinent Medical Hx/Surgical Hx HTN, dementia, depression, schizophrenia Subjective Information Consult receved for wound. Pt seen lying in bed at time of visit, awake, non-verbal. Per ERP PM, pt only consumed liquid from breakfast tray today. Observed pt was able to eat chocolate chip cookie, pt did not want the soup. Current Diet Order/ Nutrition Support low sodium Pertinent Medications nacl 0.9% Pertinent Labs 01/08 cl 109, BUN 60, Cr 2.5, Glucose 84 01/07 BUN 68, Cr 2.9, glucose 134 Nutritional Hx/Data Height 1.68 m Height (Calculated Centimeters) 167.6 Current Weight (lbs) 63.957 kg Weight (Calculated Kilograms) 64.0 Weight (Calculated Grams) 29218.5 [place] Body Weight 142 Body Mass Index (BMI) 22.7 GI Symptoms GI Symptoms None Difficult in: None Skin Integrity/Comment: reddened to left arm, left buttocks, LT back big toe open wound to left toe, left lower leg scar to left ankle gillian score 11 Current %PO Good (75-100%) Estimated Nutritional Goals BEE in Kcals: Using Current wt Calories/Kcals/Kg 25-30 Kcals Calculated 3609-9072 Protein: Using Current wt Protein g/k.7-0.8 monitor renal labs Protein Calculated 45-51 Fluid: ml per MD Nutritional Problem 2. Problem Problem increased nutrition needs Etiology increased metabolic demand for wound healing Signs/Symptoms: open wound 1. Problem Problem altered nutrition related labs Etiology renal dysfunction Signs/Symptoms: BUN 60, Cr 2.5 Malnutrition Alert Is there a minimum of two criteria No selected? Query Text:Check all the applicable criteria. A minimum of two criteria are recommended for diagnosis of either severe or non-severe malnutrition. Malnutrition Related to Morbid Obesity Malnutrition related to morbid obesity No Intervention/Recommendation Comments 1. Continue with low sodium diet as ordered. Consider adding supplements if PO intake not meeting nutritional needs. Nurses to assist pt with all meals. 2. Add James BID fot wound healing. 3. Monitor renal labs. Consider to limit protein intake if BUN/Cr continue elevated when PO intake >75%. 4. Monitor PO intake, wt, labs and skin integrity 5. F/U as high risk in 2-3 days, 01/10-01/11, PO check Expected Outcomes/Goals Expected Outcomes/Goals 1. PO intake to meet at least 75% of nutritional needs. 2. Wt stability, skin to remain intact, labs to approach WNL.
[2018-01-12] MEDS ORDERED: Diltiazem 5 mg/mL 5mL Vial IVP STA (04:32)
[2018-01-12] MEDS ORDERED: Diltiazem 5 mg/mL 5mL Vial IVP PRN (04:33)
[2018-01-12 04:40] LABS: % BASOPHILS 1.5 % (0.0-2.0); % EOSINOPHILS 5.1 % (0.0-5.0); % LYMPHOCYTES 13.9 % (20.0-50.0); % MONOCYTES 7.8 % (2.0-10.0); % NEUTROPHILS 71.7 % (40.0-80.0); BASOPHILE ABSOLUTE 0.2 Th/cumm (0-0.2); EOSINOPHILE ABSOLUTE 0.6 Th/cmm (0.1-0.4); HEMATOCRIT 28.9 % (41.0-60); HEMOGLOBIN 9.7 gm/dL (12-16); LYMPHOCYTE ABSOLUTE 1.6 Th/cmm (1.5-3.0); MEAN CELL VOLUME 97.7 fl (80-99); MEAN CORPUSCULAR HEMOGLOBIN 32.9 pg (27.0-31.0); MEAN CORPUSCULAR HGB CONC 33.7 pg (28.0-36.0); MONOCYTE ABSOLUTE 0.9 Th/cmm (0.3-1.0); NEUTROPHILE ABSOLUTE 8.1 Th/cmm (1.8-8.0); PLATELET COUNT 201 Th/cmm (150-400); RED BLOOD COUNT 2.96 Mil/cmm (3.80-5.80); RED CELL DISTRIBUTION WIDTH 12.3 % (11.5-20.0); WHITE BLOOD COUNT 11.4 Th/cmm (4.8-10.8)
[2018-01-12] MEDS ORDERED: Diltiazem 5 mg/mL 5mL Vial IVP ONE ×2 (04:54→04:56)
[2018-01-12 05:17] LABS: ANION GAP 10.5 (7.0-16.0); BUN - UREA NITROGEN 22 mg/dL (7-25); CALCIUM SERUM 8.7 mg/dL (8.6-10.3); CARBON DIOXIDE 22.4 mEq/L (21.0-31.0); CHLORIDE 112 mEq/L (98-107); CREATININE - SERUM 1.7 mg/dL (0.7-1.3); GLUCOSE 90 mg/dL (70-105); MAGNESIUM 1.7 mg/dL (1.9-2.7); POTASSIUM SERUM 3.9 mEq/L (3.5-5.1); SODIUM SERUM 141 mEq/L (136-145)
[2018-01-12] MEDS: Ciprofloxacin 200mg Premix PB 200 MG/100 ML BAG IV SCH (08:52)
[2018-01-12] MEDS: Atorvastatin Calcium 10 MG TAB PO SCH (08:56)
[2018-01-12] MEDS: Calcium Carb/Vit D 500 mg/200 U Tab PO SCH ×2 (08:57→18:05)
[2018-01-12] MEDS: Pantoprazole 40 mg EC Tab PO SCH (08:57)
[2018-01-12] MEDS ORDERED: Mag Sulfate 2gm/50mL Premix 2 GM/50 ML BAG IV ONE (09:00)
[2018-01-12] MEDS ORDERED: Clindamycin 300mg/50mL 300 MG/50 ML BAG IV SCH (13:00)
[2018-01-12] MEDS ORDERED: Clindamycin 300 MG in Sodium Chloride 0.9% 50 ML IV SCH (13:00)
[2018-01-12] MEDS: Clindamycin 300 MG in Sodium Chloride 0.9% 50 ML IV SCH ×2 (13:27→19:57)
--- NOTE | 2018-01-12 14:40 | General Progress Note ---
Subjective - Review of Systems Service Date: 01/12/18 Subjective: sleeping, comfortable; no further N/V, diarrhea Objective - Results Result Diagrams: 01/12/18 04:20 01/12/18 04:20 Recent Labs: Laboratory Last Values WBC 11.4 Th/cmm (4.8-10.8) H 01/12/18 04:20 RBC 2.96 Mil/cmm (3.80-5.80) L 01/12/18 04:20 Hgb 9.7 gm/dL (12-16) L 01/12/18 04:20 Hct 28.9 % (41.0-60) L 01/12/18 04:20 MCV 97.7 fl (80-99) 01/12/18 04:20 MCH 32.9 pg (27.0-31.0) H 01/12/18 04:20 MCHC Differential 33.7 pg (28.0-36.0) 01/12/18 04:20 RDW 12.3 % (11.5-20.0) 01/12/18 04:20 Plt Count 201 Th/cmm (150-400) 01/12/18 04:20 MPV 7.0 fl 01/12/18 04:20 Neutrophils % 71.7 % (40.0-80.0) 01/12/18 04:20 Lymphocytes % 13.9 % (20.0-50.0) L 01/12/18 04:20 Monocytes % 7.8 % (2.0-10.0) 01/12/18 04:20 Eosinophils % 5.1 % (0.0-5.0) H 01/12/18 04:20 Basophils % 1.5 % (0.0-2.0) 01/12/18 04:20 Eos Smear Source URINE 01/08/18 11:55 Eos Smear Total Cells NONE SEEN (NONE SEEN) 01/08/18 11:55 PT 11.1 SECONDS (9.5-11.5) 01/11/18 05:52 INR 1.07 (0.5-1.4) 01/11/18 05:52 PTT (Actin FS) 24.8 SECONDS (26.0-38.0) L 01/11/18 05:52 Sodium 141 mEq/L (136-145) 01/12/18 04:20 Potassium 3.9 mEq/L (3.5-5.1) 01/12/18 04:20 Chloride 112 mEq/L (98-107) H 01/12/18 04:20 Carbon Dioxide 22.4 mEq/L (21.0-31.0) 01/12/18 04:20 Anion Gap 10.5 (7.0-16.0) 01/12/18 04:20 BUN 22 mg/dL (7-25) 01/12/18 04:20 Creatinine 1.7 mg/dL (0.7-1.3) H 01/12/18 04:20 Est GFR ( Amer) TNP 01/12/18 04:20 Est GFR (Non-Af Amer) TNP 01/12/18 04:20 BUN/Creatinine Ratio 12.9 01/12/18 04:20 Glucose 90 mg/dL (70-105) 01/12/18 04:20 Calcium 8.7 mg/dL (8.6-10.3) 01/12/18 04:20 Phosphorus 2.6 mg/dL (2.5-5.0) 01/09/18 04:25 Magnesium 1.7 mg/dL (1.9-2.7) L 01/12/18 04:20 Total Bilirubin 0.4 mg/dL (0.3-1.0) 01/11/18 05:52 AST 18 U/L (13-39) 01/11/18 05:52 ALT 10 U/L (7-52) 01/11/18 05:52 Alkaline Phosphatase 25 U/L (34-104) L 01/11/18 05:52 Creatine Kinase 27 U/L (30-223) L 01/07/18 13:50 Troponin I 0.02 ng/mL (0.01-0.05) 01/07/18 13:50 B-Natriuretic Peptide 51.8 pg/mL (5.0-100.0) 01/07/18 13:50 Total Protein 5.9 gm/dL (6.0-8.3) L 01/11/18 05:52 Albumin 2.8 gm/dL (4.2-5.5) L 01/11/18 05:52 Globulin 3.1 gm/dL 01/11/18 05:52 Albumin/Globulin Ratio 0.9 (1.0-1.8) L 01/11/18 05:52 Triglycerides 176 mg/dL (<150) H 01/11/18 05:52 Cholesterol 120 mg/dL (<200) 01/11/18 05:52 LDL Cholesterol Direct 74 mg/dL (75-193) L 01/11/18 05:52 HDL Cholesterol 25 mg/dL (23-92) 01/11/18 05:52 Amylase 29 U/L (29-103) 01/07/18 13:50 Lipase 63 U/L (11-82) 01/07/18 13:50 TSH 4.85 uIU/ml (0.34-5.60) 01/11/18 05:52 Urine Source RANDOM 01/10/18 23:30 Urine Color YELLOW 01/10/18 23:30 Urine Clarity HAZY (CLEAR) 01/10/18 23:30 Urine pH 5.5 (4.6 - 8.0) 01/10/18 23:30 Ur Specific [place] 1.010 (1.005-1.030) 01/10/18 23:30 Urine Protein NEGATIVE mg/dL (NEGATIVE) 01/10/18 23:30 Urine Glucose (UA) NEGATIVE mg/dL (NEGATIVE) 01/10/18 23:30 Urine Ketones NEGATIVE mg/dL (NEGATIVE) 01/10/18 23:30 Urine Blood LARGE (NEGATIVE) H 01/10/18 23:30 Urine Nitrate NEGATIVE (NEGATIVE) 01/10/18 23:30 Urine Bilirubin NEGATIVE (NEGATIVE) 01/10/18 23:30 Urine Urobilinogen 0.2 E.U./dL (0.2 - 1.0) 01/10/18 23:30 Ur Leukocyte Esterase LARGE (NEGATIVE) H 01/10/18 23:30 Urine RBC 0-2 /hpf (0-5) H 01/10/18 23:30 Urine WBC 6-10 /hpf (0-5) 01/10/18 23:30 Ur Epithelial Cells NONE SEEN /lpf (FEW) 01/10/18 23:30 Urine Bacteria MODERATE /hpf (NONE SEEN) H 01/10/18 23:30 Ur Random Sodium 119 mmol/L 01/08/18 11:55 Urine Creatinine 74.0 mg/dl (39.0-259.0) 01/08/18 11:55 Microalb/Creat Ratio 195.2 mg/g creat (0.0-30.0) H 01/08/18 11:55 - Physical Exam Vitals and I&O: Vital Signs Temp 97.3 F 01/12/18 11:48 Pulse 68 01/12/18 11:48 Resp 18 01/12/18 11:48 BP 112/63 01/12/18 11:48 Pulse Ox 100 01/12/18 11:48 Intake & Output 01/11/18 01/12/18 01/12/18 18:59 06:59 18:59 Intake Total 1100 Balance 1100 Weight (lbs) 66.769 kg Intake: Intake, IV Amount 1100 Ciprofloxacin 200mg 100 Premix PB 200 mg In 100 ml @ 100 mls/hr IV Q24HR [facility] Rx#:[id number] Sodium Chloride 0.9% 1, 1000 000 ml @ 100 mls/hr IV . Q10H [facility] Rx#:[id number] Other: # Voids 2 Weight Source Bedscale Active Medications: Current Medications Acetaminophen (Tylenol) 650 mg PO Q6H PRN PRN Reason: fever/pain Stop: 03/09/18 13:42 Atorvastatin Calcium (Lipitor) 20 mg PO DAILY [facility]; Protocol Stop: 03/12/18 08:59 Last Admin: 01/12/18 08:56 Dose: 20 mg Calcium/Vitamin D (Oscal W/Vitamin D) 1 tab PO BID [facility] Stop: 03/09/18 16:59 Last Admin: 01/12/18 08:57 Dose: 1 tab Cholecalciferol (Vitamin D3) 1,000 iu PO DAILY [facility] Stop: 03/09/18 13:44 Last Admin: 01/12/18 08:57 Dose: 1,000 iu Diltiazem HCl (Cardizem) 5 mg IVP Q4H PRN PRN Reason: HR MORE THAN 120 Stop: 03/13/18 04:44 Divalproex Sodium (Depakote Er) 500 mg PO TID [facility]; Protocol Stop: 03/09/18 13:59 Last Admin: 01/12/18 08:57 Dose: 500 mg Docusate Sodium (Colace) 100 mg PO DAILY [facility] Stop: 03/09/18 13:44 Last Admin: 01/12/18 08:57 Dose: 100 mg Escitalopram Oxalate (Lexapro) 10 mg PO DAILY [facility]; Protocol Stop: 03/09/18 13:44 Last Admin: 01/12/18 08:57 Dose: 10 mg Finasteride (Proscar) 5 mg PO [facility]; Protocol Stop: 03/09/18 20:59 Last Admin: 01/11/18 20:58 Dose: Not Given Sodium Chloride (Nacl 0.9%) 1,000 mls @ 100 mls/hr IV .Q10H [facility] Stop: 03/08/18 17:44 Last Admin: 01/11/18 10:00 Dose: 100 mls/hr Ciprofloxacin (Cipro 200mg Premix Pb) 200 mg in 100 mls @ 100 mls/hr IV Q24HR [facility] Stop: 03/10/18 09:44 Last Admin: 01/12/18 08:52 Dose: 100 mls/hr Clindamycin Phosphate 300 mg/ (Sodium Chloride) 52 mls @ 100 mls/hr IV Q8H [facility] Stop: 03/13/18 09:59 Last Admin: 01/12/18 13:27 Dose: 100 mls/hr Magnesium Hydroxide (Milk Of Magnesia) 30 ml PO DAILY PRN PRN Reason: Constipation Stop: 03/09/18 13:45 Metoprolol Tartrate (Lopressor) 25 mg PO BID [facility] Stop: 03/09/18 16:59 Last Admin: 01/12/18 08:58 Dose: 25 mg Olanzapine (Zyprexa) 5 mg PO [facility]; Protocol Stop: 03/09/18 20:59 Last Admin: 01/11/18 20:57 Dose: Not Given Oxybutynin Chloride (Ditropan) 10 mg PO DAILY [facility] Stop: 03/10/18 08:59 Last Admin: 01/12/18 08:57 Dose: 10 mg Pantoprazole Sodium (Protonix) 40 mg PO DAILY [facility] Stop: 03/10/18 08:59 Last Admin: 01/12/18 08:57 Dose: 40 mg Tamsulosin HCl (Flomax) 0.4 mg PO BID [facility] Stop: 03/11/18 16:59 Last Admin: 01/12/18 08:57 Dose: 0.4 mg General: Alert, No acute distress HEENT: Atraumatic, Mucous membr. moist/pink Neck: Supple, +2 carotid pulse wo bruit Cardiovascular: Regular rate, Normal S1, Normal S2 Lungs: Clear to auscultation Abdomen: Bowel sounds, Soft Extremities: no Edema Neurological: Sensation intact Skin: no Significant lesion Psych/Mental Status: Mood NL - Procedures Procedures: Procedures Procedure Code Date C & S-INTEGUMENT 91.63 07/11/94 CULTURE OTHR SPECIMN AEROBIC 82868 07/11/94 DX ULTRASOUND-VASCULAR 88.77 02/13/95 ELECTROCARDIOGRAPH MONIT 89.54 02/13/95 INJECT ANTIBIOTIC 99.21 11/25/94 INJECT ANTICOAGULANT 99.19 07/11/94 MICROBE SUSCEPTIBLE DISK 45920 07/11/94 OTHER C.A.T. SCAN 88.38 02/13/95 URINARY SYSTEM X-RAY NEC 87.79 07/11/94 [place] THERAPY 30370 07/11/94 [facility] TREATMENT 93.32 07/11/94 Assessment/Plan - Assessment Assessment: [place] Acute gastroenteritis Dehydration Severe B/L hydronephrosis Severe ID Paranoid schizo Ess Htn BPH Depression LE DVT Epilepsy - Plan Plan: Lab - Result Diagrams 01/09/18 04:25 01/09/18 04:25 Current Medications Acetaminophen (Tylenol) 650 mg PO Q6H PRN PRN Reason: fever/pain Stop: 03/09/18 13:42 Calcium/Vitamin D (Oscal W/Vitamin D) 1 tab PO BID [facility] Stop: 03/09/18 16:59 Last Admin: 01/09/18 10:17 Dose: 1 tab Cholecalciferol (Vitamin D3) 1,000 iu PO DAILY [facility] Stop: 03/09/18 13:44 Last Admin: 01/09/18 10:17 Dose: 1,000 iu Divalproex Sodium (Depakote Er) 500 mg PO TID [facility]; Protocol Stop: 03/09/18 13:59 Last Admin: 01/09/18 14:21 Dose: 500 mg Docusate Sodium (Colace) 100 mg PO DAILY [facility] Stop: 03/09/18 13:44 Last Admin: 01/09/18 10:17 Dose: 100 mg Escitalopram Oxalate (Lexapro) 10 mg PO DAILY [facility]; Protocol Stop: 03/09/18 13:44 Last Admin: 01/09/18 10:16 Dose: 10 mg Finasteride (Proscar) 5 mg PO HS [facility]; Protocol Stop: 03/09/18 20:59 Last Admin: 01/08/18 21:05 Dose: 5 mg Sodium Chloride (Nacl 0.9%) 1,000 mls @ 100 mls/hr IV .Q10H [facility] Stop: 03/08/18 17:44 Last Admin: 01/09/18 03:31 Dose: 100 mls/hr Ceftriaxone Sodium 1 gm/ (Sodium Chloride) 50 mls @ 100 mls/hr IV Q24HR [facility] Stop: 03/09/18 16:59 Last Admin: 01/08/18 16:19 Dose: 100 mls/hr Ciprofloxacin (Cipro 200mg Premix Pb) 200 mg in 100 mls @ 100 mls/hr IV Q24HR [facility] Stop: 03/10/18 09:44 Last Admin: 01/09/18 10:21 Dose: 100 mls/hr Magnesium Hydroxide (Milk Of Magnesia) 30 ml PO DAILY PRN PRN Reason: Constipation Stop: 03/09/18 13:45 Metoprolol Tartrate (Lopressor) 25 mg PO BID [facility] Stop: 03/09/18 16:59 Last Admin: 01/09/18 10:16 Dose: 25 mg Olanzapine (Zyprexa) 5 mg PO HS [facility]; Protocol Stop: 03/09/18 20:59 Last Admin: 01/08/18 21:05 Dose: 5 mg Oxybutynin Chloride (Ditropan) 10 mg PO DAILY [facility] Stop: 03/10/18 08:59 Last Admin: 01/09/18 10:16 Dose: 10 mg Pantoprazole Sodium (Protonix) 40 mg PO DAILY [facility] Stop: 03/10/18 08:59 Last Admin: 01/09/18 10:17 Dose: 40 mg Rivaroxaban (Xarelto) 10 mg PO DAILY [facility] Stop: 03/10/18 08:59 Last Admin: 01/09/18 10:17 Dose: 10 mg Tamsulosin HCl (Flomax) 0.4 mg PO HS [facility] Stop: 03/09/18 20:59 Last Admin: 01/08/18 21:05 Dose: 0.4 mg Lab - Result Diagrams 01/12/18 04:20 01/12/18 04:20 Kidney fnc gradually improving w/ BUN/CR of 22/1.7 no further N/V/D Renal US revealed severe B/L hydroneprosis but nondistended bladder possible ureteral stricture due to scar, fibrosis, mass, calculi? continue IVF, encourage po intake Urology consult f/u electrolytes, cbc WBC still elevated @ 11.4 possible surgery in am Nutritional Asmnt/Malnutr-PDOC - Dietary Evaluation Malnutrition Findings (Please click <Entered> for more info): Nutritional Asmnt/Malnutrition Start: 01/08/18 11: 06 Text: Status: Complete Freq: Protocol: Document 01/08/18 11:07 CORTEZ (Rec: 01/08/18 11:35 SARANYA [email or web address]) Nutritional Asmnt/Malnutrition Patient General Information Nutritional Screening High Risk Consult Diagnosis acute renal insufficient, urosepsis Pertinent Medical Hx/Surgical Hx HTN, dementia, depression, schizophrenia Subjective Information Consult receved for wound. Pt seen lying in bed at time of visit, awake, non-verbal. Per [employer], pt only consumed liquid from breakfast tray today. Observed pt was able to eat chocolate chip cookie, pt did not want the soup. Current Diet Order/ Nutrition Support low sodium Pertinent Medications nacl 0.9% Pertinent Labs 01/08 cl 109, BUN 60, Cr 2.5, Glucose 84 01/07 BUN 68, Cr 2.9, glucose 134 Nutritional Hx/Data Height 1.68 m Height (Calculated Centimeters) 167.6 Current Weight (lbs) 63.957 kg Weight (Calculated Kilograms) 64.0 Weight (Calculated Grams) 53577.5 [place] Body Weight 142 Body Mass Index (BMI) 22.7 GI Symptoms GI Symptoms None Difficult in: None Skin Integrity/Comment: reddened to left arm, left buttocks, LT back big toe open wound to left toe, left lower leg scar to left ankle gillian score 11 Current %PO Good (75-100%) Estimated Nutritional Goals BEE in Kcals: Using Current wt Calories/Kcals/Kg 25-30 Kcals Calculated 1786-7242 Protein: Using Current wt Protein g/k.7-0.8 monitor renal labs Protein Calculated 45-51 Fluid: ml per MD Nutritional Problem 2. Problem Problem increased nutrition needs Etiology increased metabolic demand for wound healing Signs/Symptoms: open wound 1. Problem Problem altered nutrition related labs Etiology renal dysfunction Signs/Symptoms: BUN 60, Cr 2.5 Malnutrition Alert Is there a minimum of two criteria No selected? Query Text:Check all the applicable criteria. A minimum of two criteria are recommended for diagnosis of either severe or non-severe malnutrition. Malnutrition Related to Morbid Obesity Malnutrition related to morbid obesity No Intervention/Recommendation Comments 1. Continue with low sodium diet as ordered. Consider adding supplements if PO intake not meeting nutritional needs. Nurses to assist pt with all meals. 2. Add James BID fot wound healing. 3. Monitor renal labs. Consider to limit protein intake if BUN/Cr continue elevated when PO intake >75%. 4. Monitor PO intake, wt, labs and skin integrity 5. F/U as high risk in 2-3 days, 01/10-01/11, PO check Expected Outcomes/Goals Expected Outcomes/Goals 1. PO intake to meet at least 75% of nutritional needs. 2. Wt stability, skin to remain intact, labs to approach WNL.
--- NOTE | 2018-01-12 16:28 | Cardiology ---
01/10/[address] Vargas. PROCEDURE: Echocardiogram. M-MODE ECHOCARDIOGRAM: Mitral valve, anterior leaflet of mitral valve shows normal excursion, EF velocity. Posterior leaflet of mitral valve shows normal excursion. Left ventricular posterior wall shows increased thickness, normal excursion. Interventricular septum shows increased thickness, normal excursion, hypertrophy of the left ventricle, ejection fraction 60%. Left atrium normal. Aortic root shows normal dimension, normal excursion of aortic leaflets. CONCLUSION: Hypertrophy of the left ventricle, ejection fraction 60%. 2D ECHO: Long axis view showed normal sized left ventricle with hypertrophy of the left ventricle. Left atrium normal. Aortic root shows normal dimension, normal excursion of aortic leaflets. Short axis view of mitral valve normal. Short axis view of aortic valve normal. Apical four chamber view showed normal sized left ventricle with hypertrophy of the left ventricle. Left atrium normal. Right ventricular cavity, right atrium normal, no pericardial effusion. CONCLUSION: Hypertrophy of the left ventricle, ejection fraction 60%. Doppler study shows mild mitral regurgitation, mild tricuspid regurgitation, right ventricular systolic pressure 36 mmHg. CONCLUSION: Mild mitral regurgitation, mild tricuspid regurgitation, ejection fraction 60%. JOB# [id number]
--- NOTE | 2018-01-12 16:44 | Consultation ---
DATE OF CONSULTATION: 01/12/2018 REASON FOR CONSULT: Seen for bilateral hydronephrosis, renal insufficiency, and urinary tract infection. HISTORY OF PRESENT ILLNESS: The patient is a 77-year-old group home resident with multiple medical problems, admitted for nausea, vomiting, and diarrhea, which has now almost resolved. During this workup, ultrasound showed severe bilateral hydronephrosis. He came in with elevated creatinine, which has gradually come down to a baseline of 1.7-1.8. The patient is unable to provide any history due to mental retardation, depression, and an undefined psychological disorder. He is using diapers at all times and is incontinent of both stools and urine. It would be very difficult to do a pre and postvoid bladder study on him or to obtain significant or meaningful information from him. He has documented diagnosis of urinary tract infections and benign prostatic hyperplasia as well. MEDICAL HISTORY: Positive for hypertension and hyperlipidemia. He has had DVT before, for which he was taking Xarelto and that is on hold for the last 3 days. History of renal insufficiency, presently at least but do not know about the past. History of depression and psychiatric disorder, not well defined. Possible history of seizure disorder. PAST SURGICAL HISTORY: Unknown. HOME MEDICATIONS: Vitamin D3, Dexilant, Depakote, Colace, Lexapro, Proscar, Lopressor, olanzapine, omeprazole, oxybutynin, Altace, Xarelto, VESIcare, Flomax, and Keflex. ALLERGIES: NIACIN. REVIEW OF SYSTEMS: custodial resident without any tobacco, alcohol, or drug history. No chest pain, coughing, or shortness of breath. Able to feed with the help of assistance. Nausea and vomiting, resolved. Tolerating diet. No recent seizure noted or headaches reported. No fever or loss of weight. He does not have any bedsores, but does have cellulitis in his left leg, which is being treated presently. PHYSICAL EXAMINATION: GENERAL: On exam, he is awake and alert, arousable, but unable to communicate in a meaningful way. VITAL SIGNS: Temperature 97.4, heart rate 65, blood pressure 144/56. Apparently, he is difficult to manage, refuses medicines and blood tests frequently. HEAD AND NECK: Normocephalic. Trachea central. Pupils equal and reactive. No jaundice. Thyroid and lymph nodes not palpable. Carotid bruit absent. CHEST: Symmetrical. LUNGS: Clear. No rales or rhonchi. HEART: Heart sounds, normal in sinus rhythm. No murmur. ABDOMEN: Soft, nontender. No organomegaly, mass, or hernia. Bladder not distended or palpable. GENITALIA: Normal male. Penis and scrotal contents normal. RECTAL: Sphincter tone normal. Prostate is small, smooth and benign, less than 20 grams and definitely not consistent with BPH diagnosis. EXTREMITIES: Cellulitis in the left leg, bandage on the right leg. Has pigmentation below the knee, but no skin breakdown. No pedal edema or lymphadenopathy. NEUROLOGIC: Nonfocal. LABORATORY DATA: White count 11.4 today with a maximum being 14.6 two days ago; hemoglobin came in 11.1, now at 9.7; platelets 201. PT, PTT are normal. Electrolytes are unremarkable. BUN and creatinine were elevated to 68 and 2.9 and have come down just with medical treatment to 22 and 1.7, yesterday was 1.6 creatinine as well, which is his lowest recorded here. Liver functions are within normal range. Urinalysis showed leukocyte esterase and blood and culture is growing E. coli, sensitive to several antibiotics, out of which he is getting Cipro presently. His renal ultrasound showed bilateral hydronephrosis as mentioned earlier and the bladder was not distended, which rules out any significant bladder outlet obstruction and makes it difficult to explain the hydronephrosis bilaterally. Cardiac consult was obtained and they have cleared him today further for any anesthesia or surgical procedure. The family has agreed as well, therefore, we will proceed with cystoscopy, possible TURP if there is substantial outflow obstruction and may be bilateral retrograde pyelograms to determine the etiology of the hydronephrosis if present. ASSESSMENT AND PLAN: 1. Depression and psychological disorder. 2. Hypertension. 3. Hyperlipidemia. 4. History of deep venous thrombosis, off Xarelto for 3 days. 5. History of renal insufficiency, improved. 6. Urinary tract infection with E. coli, on appropriate antibiotics. 7. Bilateral hydronephrosis, rule out bladder outlet obstruction. JOB# [id number] [facility]
[2018-01-13] MEDS: Clindamycin 300 MG in Sodium Chloride 0.9% 50 ML IV SCH ×2 (03:35→10:45)
[2018-01-13 05:36] LABS: % EOSINOPHILS 5.5 % (0.0-5.0); % LYMPHOCYTES 16.3 % (20.0-50.0); % MONOCYTES 9.8 % (2.0-10.0); % NEUTROPHILS 67.4 % (40.0-80.0); BASOPHILE ABSOLUTE 0.1 Th/cumm (0-0.2); EOSINOPHILE ABSOLUTE 0.5 Th/cmm (0.1-0.4); HEMATOCRIT 27.3 % (41.0-60); HEMOGLOBIN 9.3 gm/dL (12-16); LYMPHOCYTE ABSOLUTE 1.5 Th/cmm (1.5-3.0); MEAN CELL VOLUME 96.9 fl (80-99); MEAN PLATELET VOLUME 6.8 fl; MONOCYTE ABSOLUTE 0.9 Th/cmm (0.3-1.0); NEUTROPHILE ABSOLUTE 5.9 Th/cmm (1.8-8.0); PLATELET COUNT 241 Th/cmm (150-400); RED BLOOD COUNT 2.82 Mil/cmm (3.80-5.80); RED CELL DISTRIBUTION WIDTH 12.3 % (11.5-20.0); WHITE BLOOD COUNT 8.9 Th/cmm (4.8-10.8)
[2018-01-13 05:46] LABS: ANION GAP 12.1 (7.0-16.0); BUN - UREA NITROGEN 19 mg/dL (7-25); CALCIUM SERUM 8.4 mg/dL (8.6-10.3); CARBON DIOXIDE 21.9 mEq/L (21.0-31.0); CHLORIDE 110 mEq/L (98-107); CREATININE - SERUM 1.7 mg/dL (0.7-1.3); GLUCOSE 91 mg/dL (70-105); MAGNESIUM 1.8 mg/dL (1.9-2.7); SODIUM SERUM 140 mEq/L (136-145)
[2018-01-13] MEDS: Calcium Carb/Vit D 500 mg/200 U Tab PO SCH ×2 (08:06→17:20)
[2018-01-13] MEDS: Atorvastatin Calcium 10 MG TAB PO SCH (08:06)
[2018-01-13] MEDS: Pantoprazole 40 mg EC Tab PO SCH (08:08)
[2018-01-13] MEDS: Ciprofloxacin 200mg Premix PB 200 MG/100 ML BAG IV SCH (09:47)
[2018-01-13] MEDS ORDERED: IOHEXOL 300mgI/mL 50 ML VIAL ONE ×2 (10:38)
[2018-01-13] MEDS ORDERED: Lidocaine 2% Gel 5 mL TP ONE (11:10)
[2018-01-13] MEDS ORDERED: fentaNYL Citrate 100 mcg/2mL Vial ONE (11:33)
[2018-01-13] MEDS ORDERED: Propofol **SURGERY USE ONLY** 20 ML IV ONE (11:34)
[2018-01-13] MEDS ORDERED: Neostigmine 10mg/10mL Vial ONE (11:35)
--- NOTE | 2018-01-13 14:29 | General Progress Note ---
Subjective - Review of Systems Service Date: 01/13/18 Subjective: more awake, comfortable; no further N/V, diarrhea Objective - Results Result Diagrams: 01/13/18 05:05 01/13/18 05:05 Recent Labs: Laboratory Last Values WBC 8.9 Th/cmm (4.8-10.8) 01/13/18 05:05 RBC 2.82 Mil/cmm (3.80-5.80) L 01/13/18 05:05 Hgb 9.3 gm/dL (12-16) L 01/13/18 05:05 Hct 27.3 % (41.0-60) L 01/13/18 05:05 MCV 96.9 fl (80-99) 01/13/18 05:05 MCH 33.0 pg (27.0-31.0) H 01/13/18 05:05 MCHC Differential 34.0 pg (28.0-36.0) 01/13/18 05:05 RDW 12.3 % (11.5-20.0) 01/13/18 05:05 Plt Count 241 Th/cmm (150-400) 01/13/18 05:05 MPV 6.8 fl 01/13/18 05:05 Neutrophils % 67.4 % (40.0-80.0) 01/13/18 05:05 Lymphocytes % 16.3 % (20.0-50.0) L 01/13/18 05:05 Monocytes % 9.8 % (2.0-10.0) 01/13/18 05:05 Eosinophils % 5.5 % (0.0-5.0) H 01/13/18 05:05 Basophils % 1.0 % (0.0-2.0) 01/13/18 05:05 Eos Smear Source URINE 01/08/18 11:55 Eos Smear Total Cells NONE SEEN (NONE SEEN) 01/08/18 11:55 PT 11.1 SECONDS (9.5-11.5) 01/11/18 05:52 INR 1.07 (0.5-1.4) 01/11/18 05:52 PTT (Actin FS) 24.8 SECONDS (26.0-38.0) L 01/11/18 05:52 Sodium 140 mEq/L (136-145) 01/13/18 05:05 Potassium 4.0 mEq/L (3.5-5.1) 01/13/18 05:05 Chloride 110 mEq/L (98-107) H 01/13/18 05:05 Carbon Dioxide 21.9 mEq/L (21.0-31.0) 01/13/18 05:05 Anion Gap 12.1 (7.0-16.0) 01/13/18 05:05 BUN 19 mg/dL (7-25) 01/13/18 05:05 Creatinine 1.7 mg/dL (0.7-1.3) H 01/13/18 05:05 Est GFR ( Amer) TNP 01/13/18 05:05 Est GFR (Non-Af Amer) TNP 01/13/18 05:05 BUN/Creatinine Ratio 11.2 01/13/18 05:05 Glucose 91 mg/dL (70-105) 01/13/18 05:05 POC Glucose 85 MG/DL (70 - 105) 01/13/18 06:43 Calcium 8.4 mg/dL (8.6-10.3) L 01/13/18 05:05 Phosphorus 2.6 mg/dL (2.5-5.0) 01/09/18 04:25 Magnesium 1.8 mg/dL (1.9-2.7) L 01/13/18 05:05 Total Bilirubin 0.4 mg/dL (0.3-1.0) 01/11/18 05:52 AST 18 U/L (13-39) 01/11/18 05:52 ALT 10 U/L (7-52) 01/11/18 05:52 Alkaline Phosphatase 25 U/L (34-104) L 01/11/18 05:52 Creatine Kinase 27 U/L (30-223) L 01/07/18 13:50 Troponin I 0.02 ng/mL (0.01-0.05) 01/07/18 13:50 B-Natriuretic Peptide 51.8 pg/mL (5.0-100.0) 01/07/18 13:50 Total Protein 5.9 gm/dL (6.0-8.3) L 01/11/18 05:52 Albumin 2.8 gm/dL (4.2-5.5) L 01/11/18 05:52 Globulin 3.1 gm/dL 01/11/18 05:52 Albumin/Globulin Ratio 0.9 (1.0-1.8) L 01/11/18 05:52 Triglycerides 176 mg/dL (<150) H 01/11/18 05:52 Cholesterol 120 mg/dL (<200) 01/11/18 05:52 LDL Cholesterol Direct 74 mg/dL (75-193) L 01/11/18 05:52 HDL Cholesterol 25 mg/dL (23-92) 01/11/18 05:52 Amylase 29 U/L (29-103) 01/07/18 13:50 Lipase 63 U/L (11-82) 01/07/18 13:50 TSH 4.85 uIU/ml (0.34-5.60) 01/11/18 05:52 Urine Source RANDOM 01/10/18 23:30 Urine Color YELLOW 01/10/18 23:30 Urine Clarity HAZY (CLEAR) 01/10/18 23:30 Urine pH 5.5 (4.6 - 8.0) 01/10/18 23:30 Ur Specific [place] 1.010 (1.005-1.030) 01/10/18 23:30 Urine Protein NEGATIVE mg/dL (NEGATIVE) 01/10/18 23:30 Urine Glucose (UA) NEGATIVE mg/dL (NEGATIVE) 01/10/18 23:30 Urine Ketones NEGATIVE mg/dL (NEGATIVE) 01/10/18 23:30 Urine Blood LARGE (NEGATIVE) H 01/10/18 23:30 Urine Nitrate NEGATIVE (NEGATIVE) 01/10/18 23:30 Urine Bilirubin NEGATIVE (NEGATIVE) 01/10/18 23:30 Urine Urobilinogen 0.2 E.U./dL (0.2 - 1.0) 01/10/18 23:30 Ur Leukocyte Esterase LARGE (NEGATIVE) H 01/10/18 23:30 Urine RBC 0-2 /hpf (0-5) H 01/10/18 23:30 Urine WBC 6-10 /hpf (0-5) 01/10/18 23:30 Ur Epithelial Cells NONE SEEN /lpf (FEW) 01/10/18 23:30 Urine Bacteria MODERATE /hpf (NONE SEEN) H 01/10/18 23:30 Ur Random Sodium 119 mmol/L 01/08/18 11:55 Urine Creatinine 74.0 mg/dl (39.0-259.0) 01/08/18 11:55 Microalb/Creat Ratio 195.2 mg/g creat (0.0-30.0) H 01/08/18 11:55 - Physical Exam Vitals and I&O: Vital Signs Temp 98.4 F 01/13/18 11:34 Pulse 70 01/13/18 11:34 Resp 17 01/13/18 11:34 BP 120/80 01/13/18 11:34 Pulse Ox 99 01/13/18 11:34 Intake & Output 01/12/18 01/13/18 01/13/18 18:59 06:59 18:59 Intake Total 152 544 Balance 152 544 Weight (lbs) 66.769 kg 66.678 kg Intake: Intake, IV Amount 152 104 Ciprofloxacin 200mg 100 Premix PB 200 mg In 100 ml @ 100 mls/hr IV Q24HR [facility] Rx#:[id number] Clindamycin 300 mg In 52 104 Sodium Chloride 0.9% 50 ml @ 100 mls/hr IV Q8H [facility] Rx#:[id number] Oral 440 Other: # Voids 2 2 # Bowel Movements 0 Weight Source Bedscale Bedscale Active Medications: Current Medications Acetaminophen (Tylenol) 650 mg PO Q6H PRN PRN Reason: fever/pain Stop: 03/09/18 13:42 Atorvastatin Calcium (Lipitor) 20 mg PO DAILY [facility]; Protocol Stop: 03/12/18 08:59 Last Admin: 01/13/18 08:06 Dose: Not Given Calcium/Vitamin D (Oscal W/Vitamin D) 1 tab PO BID [facility] Stop: 03/09/18 16:59 Last Admin: 01/13/18 08:06 Dose: Not Given Cholecalciferol (Vitamin D3) 1,000 iu PO DAILY [facility] Stop: 03/09/18 13:44 Last Admin: 01/13/18 08:07 Dose: Not Given Diltiazem HCl (Cardizem) 5 mg IVP Q4H PRN PRN Reason: HR MORE THAN 120 Stop: 03/13/18 04:44 Divalproex Sodium (Depakote Er) 500 mg PO TID [facility]; Protocol Stop: 03/09/18 13:59 Last Admin: 01/13/18 08:07 Dose: Not Given Docusate Sodium (Colace) 100 mg PO DAILY [facility] Stop: 03/09/18 13:44 Last Admin: 01/13/18 08:07 Dose: Not Given Escitalopram Oxalate (Lexapro) 10 mg PO DAILY [facility]; Protocol Stop: 03/09/18 13:44 Last Admin: 01/13/18 08:07 Dose: Not Given Sodium Chloride (Nacl 0.9%) 1,000 mls @ 100 mls/hr IV .Q10H [facility] Stop: 03/08/18 17:44 Last Admin: 01/11/18 10:00 Dose: 100 mls/hr Ciprofloxacin (Cipro 200mg Premix Pb) 200 mg in 100 mls @ 100 mls/hr IV Q24HR [facility] Stop: 03/10/18 09:44 Last Admin: 01/13/18 09:47 Dose: 100 mls/hr Clindamycin Phosphate 300 mg/ (Sodium Chloride) 52 mls @ 100 mls/hr IV Q8H [facility] Stop: 03/13/18 09:59 Last Admin: 01/13/18 10:45 Dose: 100 mls/hr Magnesium Hydroxide (Milk Of Magnesia) 30 ml PO DAILY PRN PRN Reason: Constipation Stop: 03/09/18 13:45 Metoprolol Tartrate (Lopressor) 25 mg PO BID [facility] Stop: 03/09/18 16:59 Last Admin: 01/13/18 08:07 Dose: Not Given Olanzapine (Zyprexa) 5 mg PO HS [facility]; Protocol Stop: 03/09/18 20:59 Last Admin: 01/12/18 20:42 Dose: 5 mg Oxybutynin Chloride (Ditropan) 10 mg PO DAILY [facility] Stop: 03/10/18 08:59 Last Admin: 01/13/18 08:08 Dose: Not Given Pantoprazole Sodium (Protonix) 40 mg PO DAILY [facility] Stop: 03/10/18 08:59 Last Admin: 01/13/18 08:08 Dose: Not Given General: Alert, No acute distress HEENT: Atraumatic, Mucous membr. moist/pink Neck: Supple, +2 carotid pulse wo bruit Cardiovascular: Regular rate, Normal S1, Normal S2 Lungs: Clear to auscultation Abdomen: Bowel sounds, Soft Extremities: no Edema Neurological: Sensation intact Skin: no Significant lesion Psych/Mental Status: Mood NL - Procedures Procedures: Procedures Procedure Code Date C & S-INTEGUMENT 91.63 07/11/94 CULTURE OTHR SPECIMN AEROBIC 14618 07/11/94 DX ULTRASOUND-VASCULAR 88.77 02/13/95 ELECTROCARDIOGRAPH MONIT 89.54 02/13/95 INJECT ANTIBIOTIC 99.21 11/25/94 INJECT ANTICOAGULANT 99.19 07/11/94 MICROBE SUSCEPTIBLE DISK 93869 07/11/94 OTHER C.A.T. SCAN 88.38 02/13/95 URINARY SYSTEM X-RAY NEC 87.79 07/11/94 [facility] THERAPY 85961 07/11/94 [facility] TREATMENT 93.32 07/11/94 Assessment/Plan - Assessment Assessment: [place] Acute gastroenteritis Dehydration Severe B/L hydronephrosis Severe ID Paranoid schizo Ess Htn BPH Depression LE DVT Epilepsy - Plan Plan: Lab - Result Diagrams 01/09/18 04:25 01/09/18 04:25 Current Medications Acetaminophen (Tylenol) 650 mg PO Q6H PRN PRN Reason: fever/pain Stop: 03/09/18 13:42 Calcium/Vitamin D (Oscal W/Vitamin D) 1 tab PO BID [facility] Stop: 03/09/18 16:59 Last Admin: 01/09/18 10:17 Dose: 1 tab Cholecalciferol (Vitamin D3) 1,000 iu PO DAILY [facility] Stop: 03/09/18 13:44 Last Admin: 01/09/18 10:17 Dose: 1,000 iu Divalproex Sodium (Depakote Er) 500 mg PO TID [facility]; Protocol Stop: 03/09/18 13:59 Last Admin: 01/09/18 14:21 Dose: 500 mg Docusate Sodium (Colace) 100 mg PO DAILY [facility] Stop: 03/09/18 13:44 Last Admin: 01/09/18 10:17 Dose: 100 mg Escitalopram Oxalate (Lexapro) 10 mg PO DAILY [facility]; Protocol Stop: 03/09/18 13:44 Last Admin: 01/09/18 10:16 Dose: 10 mg Finasteride (Proscar) 5 mg PO HS [facility]; Protocol Stop: 03/09/18 20:59 Last Admin: 01/08/18 21:05 Dose: 5 mg Sodium Chloride (Nacl 0.9%) 1,000 mls @ 100 mls/hr IV .Q10H [facility] Stop: 03/08/18 17:44 Last Admin: 01/09/18 03:31 Dose: 100 mls/hr Ceftriaxone Sodium 1 gm/ (Sodium Chloride) 50 mls @ 100 mls/hr IV Q24HR [facility] Stop: 03/09/18 16:59 Last Admin: 01/08/18 16:19 Dose: 100 mls/hr Ciprofloxacin (Cipro 200mg Premix Pb) 200 mg in 100 mls @ 100 mls/hr IV Q24HR [facility] Stop: 03/10/18 09:44 Last Admin: 01/09/18 10:21 Dose: 100 mls/hr Magnesium Hydroxide (Milk Of Magnesia) 30 ml PO DAILY PRN PRN Reason: Constipation Stop: 03/09/18 13:45 Metoprolol Tartrate (Lopressor) 25 mg PO BID [facility] Stop: 03/09/18 16:59 Last Admin: 01/09/18 10:16 Dose: 25 mg Olanzapine (Zyprexa) 5 mg PO HS [facility]; Protocol Stop: 03/09/18 20:59 Last Admin: 01/08/18 21:05 Dose: 5 mg Oxybutynin Chloride (Ditropan) 10 mg PO DAILY [facility] Stop: 03/10/18 08:59 Last Admin: 01/09/18 10:16 Dose: 10 mg Pantoprazole Sodium (Protonix) 40 mg PO DAILY [facility] Stop: 03/10/18 08:59 Last Admin: 01/09/18 10:17 Dose: 40 mg Rivaroxaban (Xarelto) 10 mg PO DAILY [facility] Stop: 03/10/18 08:59 Last Admin: 01/09/18 10:17 Dose: 10 mg Tamsulosin HCl (Flomax) 0.4 mg PO HS [facility] Stop: 03/09/18 20:59 Last Admin: 01/08/18 21:05 Dose: 0.4 mg Lab - Result Diagrams 01/13/18 05:05 01/13/18 05:05 Kidney fnc stable w/ BUN/CR of 19/1.7 no further N/V/D Renal US revealed severe B/L hydroneprosis but nondistended bladder possible ureteral stricture due to scar, fibrosis, mass, calculi? continue IVF, encourage po intake S/P Cystoscopy f/u electrolytes, cbc WBC down to 8.9 Nutritional Asmnt/Malnutr-PDOC - Dietary Evaluation Malnutrition Findings (Please click <Entered> for more info): Nutritional Asmnt/Malnutrition Start: 01/08/18 11: 06 Text: Status: Complete Freq: Protocol: Document 01/08/18 11:07 GALINDOG (Rec: 01/08/18 11:35 LCSARANYAG [email or web address]) Nutritional Asmnt/Malnutrition Patient General Information Nutritional Screening High Risk Consult Diagnosis acute renal insufficient, urosepsis Pertinent Medical Hx/Surgical Hx HTN, dementia, depression, schizophrenia Subjective Information Consult receved for wound. Pt seen lying in bed at time of visit, awake, non-verbal. Per GEOPHYSICIST, pt only consumed liquid from breakfast tray today. Observed pt was able to eat chocolate chip cookie, pt did not want the soup. Current Diet Order/ Nutrition Support low sodium Pertinent Medications nacl 0.9% Pertinent Labs 01/08 cl 109, BUN 60, Cr 2.5, Glucose 84 01/07 BUN 68, Cr 2.9, glucose 134 Nutritional Hx/Data Height 1.68 m Height (Calculated Centimeters) 167.6 Current Weight (lbs) 63.957 kg Weight (Calculated Kilograms) 64.0 Weight (Calculated Grams) 39666.5 [place] Body Weight 142 Body Mass Index (BMI) 22.7 GI Symptoms GI Symptoms None Difficult in: None Skin Integrity/Comment: reddened to left arm, left buttocks, LT back big toe open wound to left toe, left lower leg scar to left ankle gillian score 11 Current %PO Good (75-100%) Estimated Nutritional Goals BEE in Kcals: Using Current wt Calories/Kcals/Kg 25-30 Kcals Calculated 6694-9828 Protein: Using Current wt Protein g/k.7-0.8 monitor renal labs Protein Calculated 45-51 Fluid: ml per MD Nutritional Problem 2. Problem Problem increased nutrition needs Etiology increased metabolic demand for wound healing Signs/Symptoms: open wound 1. Problem Problem altered nutrition related labs Etiology renal dysfunction Signs/Symptoms: BUN 60, Cr 2.5 Malnutrition Alert Is there a minimum of two criteria No selected? Query Text:Check all the applicable criteria. A minimum of two criteria are recommended for diagnosis of either severe or non-severe malnutrition. Malnutrition Related to Morbid Obesity Malnutrition related to morbid obesity No Intervention/Recommendation Comments 1. Continue with low sodium diet as ordered. Consider adding supplements if PO intake not meeting nutritional needs. Nurses to assist pt with all meals. 2. Add James BID fot wound healing. 3. Monitor renal labs. Consider to limit protein intake if BUN/Cr continue elevated when PO intake >75%. 4. Monitor PO intake, wt, labs and skin integrity 5. F/U as high risk in 2-3 days, 01/10-01/11, PO check Expected Outcomes/Goals Expected Outcomes/Goals 1. PO intake to meet at least 75% of nutritional needs. 2. Wt stability, skin to remain intact, labs to approach WNL.
--- NOTE | 2018-01-13 15:38 | Operative Report ---
DATE OF SURGERY: 01/13/2018 PREOPERATIVE DIAGNOSES: Bilateral hydronephrosis and urinary tract infection as well as renal insufficiency. POSTOPERATIVE DIAGNOSES: Bilateral hydronephrosis and urinary tract infection as well as renal insufficiency. Neurogenic bladder and very small prostate. SURGEON: Wilfred Rowe MD. NAME OF PROCEDURE: Cystoscopy and dilation of the urethra under general anesthesia. INDICATIONS: The patient is a 77-year-old with multiple medical problems including renal insufficiency with a baseline creatinine of 1.7, urinary tract infection and bilateral hydronephrosis on ultrasound. He was admitted for unrelated condition of nausea, vomiting, abdominal pain and diarrhea, which have all resolved. FINDINGS: Cystoscopy reveals absence of stricture. The prostatic urethra is wide open consistent with a previous TURP and the bladder is trabeculated and very small capacity and has changes of hemorrhagic cystitis and most likely hyperreflexic as it does not accommodate more than 50-100 mL of fluid. Blood loss was minimal 5-10 mL. There were no complications. PROCEDURE IN DETAIL: The patient was brought to the operating room, prepped and draped in the dorsal lithotomy position after general anesthesia was induced. After dilating the meatus and the distal urethra a cystoscope was introduced under vision and urethra examined. There was a small false passage at 6 o'clock position in the bulbous urethra that was easily negotiable and the prostatic fossa looked wide open with changes of resection in the past. The bladder was then entered and found to be very small capacity and started bleeding immediately with a poor visibility in spite of repeated attempts using both the 30 and 70-degree lenses. I could not identify the ureteral orifices. After a long time, I decided to abandon this attempt and simply drain the bladder to complete the procedure. The patient seems to have a very small capacity hyperreflexic bladder, which may be the cause of his bilateral hydronephrosis. There was no bladder outlet obstruction of any kind. Therefore, he does not require any Flomax or Proscar in the future, but does require the anticholinergics like oxybutynin or VESIcare with the safety limits to reduce the hyperreflexia and the pressure on the ureters and the kidneys due to a noncompliant low capacity bladder. He was returned to recovery in stable condition. JOB# [id number]
[2018-01-13] MEDS ORDERED: Venelex 60gm Tube TP SCH (17:45)
[2018-01-13] MEDS: Sodium Chloride 0.9% 1,000 ML IV SCH (18:37)
[2018-01-14] MEDS: Sodium Chloride 0.9% 1,000 ML IV SCH (05:49)
[2018-01-14 06:12] LABS: % EOSINOPHILS 6.3 % (0.0-5.0); % LYMPHOCYTES 20.7 % (20.0-50.0); % MONOCYTES 9.8 % (2.0-10.0); % NEUTROPHILS 62.2 % (40.0-80.0); BASOPHILE ABSOLUTE 0.1 Th/cumm (0-0.2); EOSINOPHILE ABSOLUTE 0.5 Th/cmm (0.1-0.4); HEMATOCRIT 28.5 % (41.0-60); HEMOGLOBIN 9.5 gm/dL (12-16); LYMPHOCYTE ABSOLUTE 1.7 Th/cmm (1.5-3.0); MEAN CORPUSCULAR HEMOGLOBIN 32.9 pg (27.0-31.0); MEAN CORPUSCULAR HGB CONC 33.2 pg (28.0-36.0); MEAN PLATELET VOLUME 6.8 fl; MONOCYTE ABSOLUTE 0.8 Th/cmm (0.3-1.0); NEUTROPHILE ABSOLUTE 5.1 Th/cmm (1.8-8.0); PLATELET COUNT 237 Th/cmm (150-400); RED BLOOD COUNT 2.88 Mil/cmm (3.80-5.80); RED CELL DISTRIBUTION WIDTH 12.5 % (11.5-20.0); WHITE BLOOD COUNT 8.2 Th/cmm (4.8-10.8)
[2018-01-14 06:27] LABS: ANION GAP 11.1 (7.0-16.0); BUN - UREA NITROGEN 20 mg/dL (7-25); CALCIUM SERUM 8.7 mg/dL (8.6-10.3); CARBON DIOXIDE 23.2 mEq/L (21.0-31.0); CHLORIDE 111 mEq/L (98-107); CREATININE - SERUM 1.6 mg/dL (0.7-1.3); GLUCOSE 93 mg/dL (70-105); POTASSIUM SERUM 4.3 mEq/L (3.5-5.1); SODIUM SERUM 141 mEq/L (136-145)
[2018-01-14] MEDS: Atorvastatin Calcium 10 MG TAB PO SCH (08:21)
[2018-01-14] MEDS: Pantoprazole 40 mg EC Tab PO SCH (08:21)
[2018-01-14] MEDS: Calcium Carb/Vit D 500 mg/200 U Tab PO SCH ×2 (08:22→17:27)
[2018-01-14] MEDS: Ciprofloxacin 200mg Premix PB 200 MG/100 ML BAG IV SCH (09:38)
--- NOTE | 2018-01-14 12:58 | General Progress Note ---
Subjective - Review of Systems Service Date: 01/14/18 Subjective: more awake, comfortable; no further N/V, diarrhea Objective - Results Result Diagrams: 01/14/18 05:40 01/14/18 05:40 Recent Labs: Laboratory Last Values WBC 8.2 Th/cmm (4.8-10.8) 01/14/18 05:40 RBC 2.88 Mil/cmm (3.80-5.80) L 01/14/18 05:40 Hgb 9.5 gm/dL (12-16) L 01/14/18 05:40 Hct 28.5 % (41.0-60) L 01/14/18 05:40 MCV 99.0 fl (80-99) 01/14/18 05:40 MCH 32.9 pg (27.0-31.0) H 01/14/18 05:40 MCHC Differential 33.2 pg (28.0-36.0) 01/14/18 05:40 RDW 12.5 % (11.5-20.0) 01/14/18 05:40 Plt Count 237 Th/cmm (150-400) 01/14/18 05:40 MPV 6.8 fl 01/14/18 05:40 Neutrophils % 62.2 % (40.0-80.0) 01/14/18 05:40 Lymphocytes % 20.7 % (20.0-50.0) 01/14/18 05:40 Monocytes % 9.8 % (2.0-10.0) 01/14/18 05:40 Eosinophils % 6.3 % (0.0-5.0) H 01/14/18 05:40 Basophils % 1.0 % (0.0-2.0) 01/14/18 05:40 Eos Smear Source URINE 01/08/18 11:55 Eos Smear Total Cells NONE SEEN (NONE SEEN) 01/08/18 11:55 PT 11.1 SECONDS (9.5-11.5) 01/11/18 05:52 INR 1.07 (0.5-1.4) 01/11/18 05:52 PTT (Actin FS) 24.8 SECONDS (26.0-38.0) L 01/11/18 05:52 Sodium 141 mEq/L (136-145) 01/14/18 05:40 Potassium 4.3 mEq/L (3.5-5.1) 01/14/18 05:40 Chloride 111 mEq/L (98-107) H 01/14/18 05:40 Carbon Dioxide 23.2 mEq/L (21.0-31.0) 01/14/18 05:40 Anion Gap 11.1 (7.0-16.0) 01/14/18 05:40 BUN 20 mg/dL (7-25) 01/14/18 05:40 Creatinine 1.6 mg/dL (0.7-1.3) H 01/14/18 05:40 Est GFR ( Amer) TNP 01/14/18 05:40 Est GFR (Non-Af Amer) TNP 01/14/18 05:40 BUN/Creatinine Ratio 12.5 01/14/18 05:40 Glucose 93 mg/dL (70-105) 01/14/18 05:40 POC Glucose 85 MG/DL (70 - 105) 01/13/18 06:43 Calcium 8.7 mg/dL (8.6-10.3) 01/14/18 05:40 Phosphorus 2.6 mg/dL (2.5-5.0) 01/09/18 04:25 Magnesium 1.8 mg/dL (1.9-2.7) L 01/13/18 05:05 Total Bilirubin 0.4 mg/dL (0.3-1.0) 01/11/18 05:52 AST 18 U/L (13-39) 01/11/18 05:52 ALT 10 U/L (7-52) 01/11/18 05:52 Alkaline Phosphatase 25 U/L (34-104) L 01/11/18 05:52 Creatine Kinase 27 U/L (30-223) L 01/07/18 13:50 Troponin I 0.02 ng/mL (0.01-0.05) 01/07/18 13:50 B-Natriuretic Peptide 51.8 pg/mL (5.0-100.0) 01/07/18 13:50 Total Protein 5.9 gm/dL (6.0-8.3) L 01/11/18 05:52 Albumin 2.8 gm/dL (4.2-5.5) L 01/11/18 05:52 Globulin 3.1 gm/dL 01/11/18 05:52 Albumin/Globulin Ratio 0.9 (1.0-1.8) L 01/11/18 05:52 Triglycerides 176 mg/dL (<150) H 01/11/18 05:52 Cholesterol 120 mg/dL (<200) 01/11/18 05:52 LDL Cholesterol Direct 74 mg/dL (75-193) L 01/11/18 05:52 HDL Cholesterol 25 mg/dL (23-92) 01/11/18 05:52 Amylase 29 U/L (29-103) 01/07/18 13:50 Lipase 63 U/L (11-82) 01/07/18 13:50 TSH 4.85 uIU/ml (0.34-5.60) 01/11/18 05:52 Urine Source RANDOM 01/10/18 23:30 Urine Color YELLOW 01/10/18 23:30 Urine Clarity HAZY (CLEAR) 01/10/18 23:30 Urine pH 5.5 (4.6 - 8.0) 01/10/18 23:30 Ur Specific Springer 1.010 (1.005-1.030) 01/10/18 23:30 Urine Protein NEGATIVE mg/dL (NEGATIVE) 01/10/18 23:30 Urine Glucose (UA) NEGATIVE mg/dL (NEGATIVE) 01/10/18 23:30 Urine Ketones NEGATIVE mg/dL (NEGATIVE) 01/10/18 23:30 Urine Blood LARGE (NEGATIVE) H 01/10/18 23:30 Urine Nitrate NEGATIVE (NEGATIVE) 01/10/18 23:30 Urine Bilirubin NEGATIVE (NEGATIVE) 01/10/18 23:30 Urine Urobilinogen 0.2 E.U./dL (0.2 - 1.0) 01/10/18 23:30 Ur Leukocyte Esterase LARGE (NEGATIVE) H 01/10/18 23:30 Urine RBC 0-2 /hpf (0-5) H 01/10/18 23:30 Urine WBC 6-10 /hpf (0-5) 01/10/18 23:30 Ur Epithelial Cells NONE SEEN /lpf (FEW) 01/10/18 23:30 Urine Bacteria MODERATE /hpf (NONE SEEN) H 01/10/18 23:30 Ur Random Sodium 119 mmol/L 01/08/18 11:55 Urine Creatinine 74.0 mg/dl (39.0-259.0) 01/08/18 11:55 Microalb/Creat Ratio 195.2 mg/g creat (0.0-30.0) H 01/08/18 11:55 - Physical Exam Vitals and I&O: Vital Signs Temp 97.3 F 01/14/18 11:27 Pulse 76 01/14/18 11:27 Resp 18 01/14/18 11:27 BP 110/62 01/14/18 11:27 Pulse Ox 100 01/14/18 11:27 Intake & Output 01/13/18 01/14/18 01/14/18 18:59 06:59 18:59 Intake Total 190 1050 Balance 190 1050 Weight (lbs) 66.86 kg 66.791 kg Intake: Intake, IV Amount 100 1000 Ciprofloxacin 200mg 100 Premix PB 200 mg In 100 ml @ 100 mls/hr IV Q24HR [facility] Rx#:[id number] Sodium Chloride 0.9% 1, 1000 000 ml @ 100 mls/hr IV . Q10H [facility] Rx#:[id number] Oral 90 50 Other: # Voids 1 2 # Bowel Movements 0 Weight Source Bedscale Bedscale Active Medications: Current Medications Acetaminophen (Tylenol) 650 mg PO Q6H PRN PRN Reason: fever/pain Stop: 03/09/18 13:42 Last Admin: 01/13/18 21:32 Dose: 650 mg Atorvastatin Calcium (Lipitor) 20 mg PO DAILY [facility]; Protocol Stop: 03/12/18 08:59 Last Admin: 01/14/18 08:21 Dose: 20 mg Calcium/Vitamin D (Oscal W/Vitamin D) 1 tab PO BID [facility] Stop: 03/09/18 16:59 Last Admin: 01/14/18 08:22 Dose: 1 tab [place] Oil/Ukrainian Balsam/Trypsin (Venelex) 1 appl TP DAILY [facility] Stop: 03/14/18 17:44 Last Admin: 01/14/18 08:31 Dose: 1 appl Cholecalciferol (Vitamin D3) 1,000 iu PO DAILY [facility] Stop: 03/09/18 13:44 Last Admin: 01/14/18 08:22 Dose: 1,000 iu Diltiazem HCl (Cardizem) 5 mg IVP Q4H PRN PRN Reason: HR MORE THAN 120 Stop: 03/13/18 04:44 Divalproex Sodium (Depakote Er) 500 mg PO TID [facility]; Protocol Stop: 03/09/18 13:59 Last Admin: 01/14/18 09:25 Dose: 500 mg Docusate Sodium (Colace) 100 mg PO DAILY [facility] Stop: 03/09/18 13:44 Last Admin: 01/14/18 08:22 Dose: 100 mg Escitalopram Oxalate (Lexapro) 10 mg PO DAILY [facility]; Protocol Stop: 03/09/18 13:44 Last Admin: 01/14/18 08:21 Dose: 10 mg Sodium Chloride (Nacl 0.9%) 1,000 mls @ 100 mls/hr IV .Q10H [facility] Stop: 03/08/18 17:44 Last Admin: 01/14/18 05:49 Dose: 100 mls/hr Ciprofloxacin (Cipro 200mg Premix Pb) 200 mg in 100 mls @ 100 mls/hr IV Q24HR [facility] Stop: 03/10/18 09:44 Last Admin: 01/14/18 09:38 Dose: 100 mls/hr Clindamycin Phosphate 300 mg/ (Sodium Chloride) 52 mls @ 100 mls/hr IV Q8H [facility] Stop: 03/13/18 09:59 Last Admin: 01/13/18 10:45 Dose: 100 mls/hr Magnesium Hydroxide (Milk Of Magnesia) 30 ml PO DAILY PRN PRN Reason: Constipation Stop: 03/09/18 13:45 Metoprolol Tartrate (Lopressor) 25 mg PO BID [facility] Stop: 03/09/18 16:59 Last Admin: 01/14/18 08:26 Dose: 25 mg Olanzapine (Zyprexa) 5 mg PO HS [facility]; Protocol Stop: 03/09/18 20:59 Last Admin: 01/13/18 21:32 Dose: 5 mg Oxybutynin Chloride (Ditropan) 10 mg PO DAILY [facility] Stop: 03/10/18 08:59 Last Admin: 01/14/18 08:21 Dose: 10 mg Pantoprazole Sodium (Protonix) 40 mg PO DAILY [facility] Stop: 03/10/18 08:59 Last Admin: 01/14/18 08:21 Dose: 40 mg General: Alert, No acute distress HEENT: Atraumatic, Mucous membr. moist/pink Neck: Supple, +2 carotid pulse wo bruit Cardiovascular: Regular rate, Normal S1, Normal S2 Lungs: Clear to auscultation Abdomen: Bowel sounds, Soft Extremities: no Edema Neurological: Sensation intact Skin: no Significant lesion Psych/Mental Status: Mood NL - Procedures Procedures: Procedures Procedure Code Date C & S-INTEGUMENT 91.63 07/11/94 CULTURE OTHR SPECIMN AEROBIC 05002 07/11/94 DX ULTRASOUND-VASCULAR 88.77 02/13/95 ELECTROCARDIOGRAPH MONIT 89.54 02/13/95 INJECT ANTIBIOTIC 99.21 11/25/94 INJECT ANTICOAGULANT 99.19 07/11/94 MICROBE SUSCEPTIBLE DISK 84262 07/11/94 OTHER C.A.T. SCAN 88.38 02/13/95 URINARY SYSTEM X-RAY NEC 87.79 07/11/94 [place] THERAPY 89965 07/11/94 WHIRLPOOL TREATMENT 93.32 07/11/94 Assessment/Plan - Assessment Assessment: [place] Acute gastroenteritis Dehydration Severe B/L hydronephrosis 2/2 to Hyperreflexic small bladder Severe ID Paranoid schizo Ess Htn BPH Depression LE DVT Epilepsy - Plan Plan: Lab - Result Diagrams 01/09/18 04:25 01/09/18 04:25 Current Medications Acetaminophen (Tylenol) 650 mg PO Q6H PRN PRN Reason: fever/pain Stop: 03/09/18 13:42 Calcium/Vitamin D (Oscal W/Vitamin D) 1 tab PO BID [facility] Stop: 03/09/18 16:59 Last Admin: 01/09/18 10:17 Dose: 1 tab Cholecalciferol (Vitamin D3) 1,000 iu PO DAILY [facility] Stop: 03/09/18 13:44 Last Admin: 01/09/18 10:17 Dose: 1,000 iu Divalproex Sodium (Depakote Er) 500 mg PO TID [facility]; Protocol Stop: 03/09/18 13:59 Last Admin: 01/09/18 14:21 Dose: 500 mg Docusate Sodium (Colace) 100 mg PO DAILY [facility] Stop: 03/09/18 13:44 Last Admin: 01/09/18 10:17 Dose: 100 mg Escitalopram Oxalate (Lexapro) 10 mg PO DAILY [facility]; Protocol Stop: 03/09/18 13:44 Last Admin: 01/09/18 10:16 Dose: 10 mg Finasteride (Proscar) 5 mg PO HS [facility]; Protocol Stop: 03/09/18 20:59 Last Admin: 01/08/18 21:05 Dose: 5 mg Sodium Chloride (Nacl 0.9%) 1,000 mls @ 100 mls/hr IV .Q10H [facility] Stop: 03/08/18 17:44 Last Admin: 01/09/18 03:31 Dose: 100 mls/hr Ceftriaxone Sodium 1 gm/ (Sodium Chloride) 50 mls @ 100 mls/hr IV Q24HR [facility] Stop: 03/09/18 16:59 Last Admin: 01/08/18 16:19 Dose: 100 mls/hr Ciprofloxacin (Cipro 200mg Premix Pb) 200 mg in 100 mls @ 100 mls/hr IV Q24HR [facility] Stop: 03/10/18 09:44 Last Admin: 01/09/18 10:21 Dose: 100 mls/hr Magnesium Hydroxide (Milk Of Magnesia) 30 ml PO DAILY PRN PRN Reason: Constipation Stop: 03/09/18 13:45 Metoprolol Tartrate (Lopressor) 25 mg PO BID [facility] Stop: 03/09/18 16:59 Last Admin: 01/09/18 10:16 Dose: 25 mg Olanzapine (Zyprexa) 5 mg PO HS [facility]; Protocol Stop: 03/09/18 20:59 Last Admin: 01/08/18 21:05 Dose: 5 mg Oxybutynin Chloride (Ditropan) 10 mg PO DAILY [facility] Stop: 03/10/18 08:59 Last Admin: 01/09/18 10:16 Dose: 10 mg Pantoprazole Sodium (Protonix) 40 mg PO DAILY [facility] Stop: 03/10/18 08:59 Last Admin: 01/09/18 10:17 Dose: 40 mg Rivaroxaban (Xarelto) 10 mg PO DAILY [facility] Stop: 03/10/18 08:59 Last Admin: 01/09/18 10:17 Dose: 10 mg Tamsulosin HCl (Flomax) 0.4 mg PO [facility] Stop: 03/09/18 20:59 Last Admin: 01/08/18 21:05 Dose: 0.4 mg Lab - Result Diagrams 01/14/18 05:40 01/14/18 05:40 Kidney fnc stable w/ BUN/CR of 20/1.6 no further N/V/D Renal US revealed severe B/L hydroneprosis but nondistended bladder continue IVF, encourage po intake S/P Cystoscopy f/u electrolytes, cbc WBC down to 8.2 Nutritional Asmnt/Malnutr-PDOC - Dietary Evaluation Malnutrition Findings (Please click <Entered> for more info): Nutritional Asmnt/Malnutrition Start: 01/08/18 11: 06 Text: Status: Complete Freq: Protocol: Document 01/08/18 11:07 SARANYAG (Rec: 01/08/18 11:35 [email or web address]) Nutritional Asmnt/Malnutrition Patient General Information Nutritional Screening High Risk Consult Diagnosis acute renal insufficient, urosepsis Pertinent Medical Hx/Surgical Hx HTN, dementia, depression, schizophrenia Subjective Information Consult receved for wound. Pt seen lying in bed at time of visit, awake, non-verbal. Per TOOL CARRIER, pt only consumed liquid from breakfast tray today. Observed pt was able to eat chocolate chip cookie, pt did not want the soup. Current Diet Order/ Nutrition Support low sodium Pertinent Medications nacl 0.9% Pertinent Labs 01/08 cl 109, BUN 60, Cr 2.5, Glucose 84 01/07 BUN 68, Cr 2.9, glucose 134 Nutritional Hx/Data Height 1.68 m Height (Calculated Centimeters) 167.6 Current Weight (lbs) 63.957 kg Weight (Calculated Kilograms) 64.0 Weight (Calculated Grams) 14469.5 [place] Body Weight 142 Body Mass Index (BMI) 22.7 GI Symptoms GI Symptoms None Difficult in: None Skin Integrity/Comment: reddened to left arm, left buttocks, LT back big toe open wound to left toe, left lower leg scar to left ankle gillian score 11 Current %PO Good (75-100%) Estimated Nutritional Goals BEE in Kcals: Using Current wt Calories/Kcals/Kg 25-30 Kcals Calculated 6603-1307 Protein: Using Current wt Protein g/k.7-0.8 monitor renal labs Protein Calculated 45-51 Fluid: ml per MD Nutritional Problem 2. Problem Problem increased nutrition needs Etiology increased metabolic demand for wound healing Signs/Symptoms: open wound 1. Problem Problem altered nutrition related labs Etiology renal dysfunction Signs/Symptoms: BUN 60, Cr 2.5 Malnutrition Alert Is there a minimum of two criteria No selected? Query Text:Check all the applicable criteria. A minimum of two criteria are recommended for diagnosis of either severe or non-severe malnutrition. Malnutrition Related to Morbid Obesity Malnutrition related to morbid obesity No Intervention/Recommendation Comments 1. Continue with low sodium diet as ordered. Consider adding supplements if PO intake not meeting nutritional needs. Nurses to assist pt with all meals. 2. Add James BID fot wound healing. 3. Monitor renal labs. Consider to limit protein intake if BUN/Cr continue elevated when PO intake >75%. 4. Monitor PO intake, wt, labs and skin integrity 5. F/U as high risk in 2-3 days, 01/10-01/11, PO check Expected Outcomes/Goals Expected Outcomes/Goals 1. PO intake to meet at least 75% of nutritional needs. 2. Wt stability, skin to remain intact, labs to approach WNL.
--- NOTE | 2018-01-15 20:34 | Discharge Summary ---
DATE OF DISCHARGE: 01/14/2018 ADMITTING DIAGNOSES: 1. Urinary tract infection. 2. Gastroenteritis. 3. Possibly acute on chronic renal insufficiency. 4. Leukocytosis. 5. Left lower extremity wound. SECONDARY DIAGNOSES: 1. History of intellectual disability 2. History of essential hypertension. 3. History of previous lower extremity deep venous thrombosis. 4. History of depression/psych disorder. 5. History of benign prostatic hypertrophy. DISCHARGE DIAGNOSES: 1. Escherichia coli urinary tract infection - clinically stable. 2. Gastroenteritis - clinically resolved. 3. Acute on chronic renal insufficiency - stable. 4. Leukocytosis - resolved. 5. Left lower extremity ulcer with Staphylococcus infection - clinically stable. 6. Severe hydronephrosis secondary to urethral stricture, status post cystoscopy. 7. Neurogenic bladder disease. CONSULTANTS: Dr. Mon, Nephrology; Dr. Rowe, Urology; Dr. Jose Carlos King, Cardiology. MAJOR PROCEDURES/DIAGNOSTICS: 2D echo on 01/10 showed hypertrophy of the left ventricle with an EF of 60%. There was mild mitral and tricuspid regurgitation. On 01/13/2018, he underwent a cystoscopy showing the prostatic urethra is wide open consistent with a previous TURP and the gallbladder is trabeculated and very small capacity and has changes of hemorrhagic cystitis and most likely hyperreflexic as it does not accommodate more than 50-100 mL of fluid. There were no complications. On 01/08/2018, he underwent a renal ultrasound showing severe bilateral hydronephrosis. BRIEF HOSPITAL COURSE: This is a 77-year-old male, who resides at [facility] with history of severe intellectual disability, depression, essential hypertension, BPH, history of lower extremity DVT, who was brought in after he was noted to have 6 episodes of nausea and vomiting. In the ED, pertinent findings included a white count of 11.4, BUN and creatinine of 68/2.9, and a UA consistent with a UTI. He was admitted to the medical floor and placed on IV fluids, IV antibiotics, and he also underwent a renal workup. A renal consult was placed and an ultrasound of the kidneys showed severe bilateral hydronephrosis. After these results were obtained, Urology consult was placed for possible cystoscopy and TURP. Clinically speaking, patient did improve after being admitted with improvement of his white count to a level of 8.9 by 01/13 and his renal function had improved to a level of BUN and creatinine of 22/1.6. His vital signs remained stable with no fevers recorded and no further episodes of nausea and vomiting were reported by nursing staff. His microbiology came back with Staph aureus (non-MRSA) from his left lower extremity wound, and the urine culture also came back positive for E. coli (non- ESBL). Blood cultures remained negative throughout his hospital stay. Given his comorbidities and need of further IV antibiotics, it was decided that the patient would benefit from long-term acute care. MEDICATIONS ON DISCHARGE: Tylenol 650 mg q. 6 p.r.n. for pain, atorvastatin 20 mg q. day, vitamin D3 at 1000 units q. day, ciprofloxacin 200 mg IV q. 24, clindamycin 300 mg IV q. 8, Depakote ER 500 mg t.i.d., docusate sodium 100 mg daily, Lexapro 10 mg daily, milk of magnesia 30 mL daily p.r.n. for constipation, Lopressor 25 mg b.i.d., Zyprexa 5 mg at bedtime, NS at 100 mL per hour, Ditropan 10 mg q. day, Protonix 40 mg q. day, Flomax 0.4 mg q. day. DISPOSITION: The patient was transferred to [facility] for further management and care. JOB# [id number] [email or web address]
== END 2018-01-14 20:56 | DRG 391 ==
LOC: ER 13:05 → TELE 17:55
PROVIDERS: ADMIT Internal Medicine; ATTEND Internal Medicine
PROC: 0T7D8ZZ Dilation of Urethra, Via Natural or Artificial Opening Endoscopic (ICD-10-PCS; principal; 2018-01-13)
DX: K52.9 Noninfective gastroenteritis and colitis, unspecified (principal); N17.0 Acute kidney failure with tubular necrosis; N39.0 Urinary tract infection, site not specified; I82.409 Acute embolism and thrombosis of unspecified deep veins of unspecified lower extremity; N13.30 Unspecified hydronephrosis; F20.0 Paranoid schizophrenia; L97.929 Non-pressure chronic ulcer of unspecified part of left lower leg with unspecified severity; D72.829 Elevated white blood cell count, unspecified; F32.9 Major depressive disorder, single episode, unspecified; N40.0 Benign prostatic hyperplasia without lower urinary tract symptoms; E86.0 Dehydration; F03.90 Unspecified dementia, unspecified severity, without behavioral disturbance, psychotic disturbance, mood disturbance, and anxiety; F29 Unspecified psychosis not due to a substance or known physiological condition; G40.909 Epilepsy, unspecified, not intractable, without status epilepticus; F79 Unspecified intellectual disabilities; I12.9 Hypertensive chronic kidney disease with stage 1 through stage 4 chronic kidney disease, or unspecified chronic kidney disease; N18.9 Chronic kidney disease, unspecified; B96.20 Unspecified Escherichia coli [E. coli] as the cause of diseases classified elsewhere; B95.8 Unspecified staphylococcus as the cause of diseases classified elsewhere; N35.919 Unspecified urethral stricture, male, unspecified site; N31.9 Neuromuscular dysfunction of bladder, unspecified; E78.5 Hyperlipidemia, unspecified; R29.2 Abnormal reflex; Z88.8 Allergy status to other drugs, medicaments and biological substances; Z86.718 Personal history of other venous thrombosis and embolism
CPT/HCPCS: 36415-UA; 71045-TC; 76770-TC; 80048-TC; 80053-TC; 80061-TC; 81001-TC; 81003-TC; 81015-TC; 82043-90; 82150-TC; 82550-TC; 82570-TC; 82948-90; 83690-TC; 83735-TC; 83880-TC; 84100-TC; 84300-TC; 84443-TC; 84484-TC; 85025-TC; 85610-TC; 87070-90; 87075-90; 87086-90; 90779; 93005; 94760; 96372; 96375; J0696; J0744; J2405; J2704; J2710; J3010; J3370; J3475; J3490; J7030; J7040; J7051; Q9967; X3401; X5958; X6258; Z7610

== ENCOUNTER 2018-02-07 19:02 | Inpatient (IN) | payer MEDICARE, MEDICAID ==
[2018-02-07 19:44] LABS: % BASOPHILS 0.5 % (0.0-2.0); % EOSINOPHILS 6.8 % (0.0-5.0); % LYMPHOCYTES 18.8 % (20.0-50.0); % MONOCYTES 7.9 % (2.0-10.0); EOSINOPHILE ABSOLUTE 0.5 Th/cmm (0.1-0.4); HEMATOCRIT 32.6 % (41.0-60); LYMPHOCYTE ABSOLUTE 1.4 Th/cmm (1.5-3.0); MEAN CELL VOLUME 96.3 fl (80-99); MEAN CORPUSCULAR HEMOGLOBIN 32.4 pg (27.0-31.0); MEAN CORPUSCULAR HGB CONC 33.6 pg (28.0-36.0); MEAN PLATELET VOLUME 6.9 fl; MONOCYTE ABSOLUTE 0.6 Th/cmm (0.3-1.0); PLATELET COUNT 269 Th/cmm (150-400); RED BLOOD COUNT 3.39 Mil/cmm (3.80-5.80); RED CELL DISTRIBUTION WIDTH 12.7 % (11.5-20.0); WHITE BLOOD COUNT 7.5 Th/cmm (4.8-10.8)
[2018-02-07 19:54] LABS: INR 1.3 (0.5-1.4); PROTHROMBIN TIME (TEST) 13.3 SECONDS (9.5-11.5)
[2018-02-07 19:58] LABS: ALBUMIN 3.5 gm/dL (4.2-5.5); ALKALINE PHOSPHATASE 44 U/L (34-104); ANION GAP 12.8 (7.0-16.0); BILIRUBIN,TOTAL 0.3 mg/dL (0.3-1.0); BUN - UREA NITROGEN 21 mg/dL (7-25); CALCIUM SERUM 9.8 mg/dL (8.6-10.3); CARBON DIOXIDE 28.1 mEq/L (21.0-31.0); CHLORIDE 104 mEq/L (98-107); CREATININE - SERUM 1.4 mg/dL (0.7-1.3); GLUCOSE 126 mg/dL (70-105); POTASSIUM SERUM 4.9 mEq/L (3.5-5.1); SGOT 12 U/L (13-39); SGPT/ALT 7 U/L (7-52); SODIUM SERUM 140 mEq/L (136-145); TOTAL PROTEIN,SERUM 7.2 gm/dL (6.0-8.3)
[2018-02-07 20:08] LABS: ALLEN TEST Positive; pH 7.45 (7.35-7.45)
--- NOTE | 2018-02-07 20:28 | ED Physician Chart ---
ED Chief Complaint/HPI - Patient Information Date Seen:: 02/07/18 Time Seen:: 19:20 Chief Complaint:: vomiting History of Present Illness:: THIS IS A 77 YO MALE SENT FROM THE NURSING WITH A REPORT OF VOMITING. THIS PATIENT IS CHRONICALLY ILL WITH SEVERE INTELLECTUAL DISABILITIES, HYPERTENSION, BNP, MAJOR DEPRESSIVE DISORDER. Allergies:: Allergies Allergy/AdvReac Type Severity Reaction Status Date / Time niacin Allergy Verified 12/24/16 18:59 Vitals:: Vital Signs - 8 hr 02/07/18 19:11 Temp 98.2 F HR 86 RR 16 BP 142/76 O2 Sat % 94 Historian:: Medical Records Review:: Transfer documents Reviewed ED Review of Systems - Review of Systems General/Constitutional: No fever, No chills, No weight loss, No weakness, No diaphoresis, No edema, No loss of appetite, Other (THIS PATIENT IS UNABLE TO GIVE A REVIEW OF SYSTEMS.) Skin: No skin lesions, No rash, No bruising Head: No headache, No light-headedness Eyes: No loss of vision, No pain, No diplopia ENT: No earache, No nasal drainage, No sore throat, No tinnitus Neck: No neck pain, No swelling, No thyromegaly, No stiffness, No mass noted Cardio Vascular: No chest pain, No palpitations, No PND, No orthopnea, No edema Pulmonary: No SOB, No cough, No sputum, No wheezing GI: No nausea, No vomiting, No diarrhea, No pain, No melena, No hematochezia, No constipation, No hematemesis G/U: No dysuria, No frequency, No hematuria Musculoskeletal: No bone or joint pain, No back pain, No muscle pain Endocrine: No polyuria, No polydipsia Psychiatric: No prior psych history, No depression, No anxiety, No suicidal ideation Hematopoietic: No bruising, No lymphadenopathy Allergic/Immuno: No urticaria, No angioedema Neurological: No syncope, No focal symptoms, No weakness, No paresthesia, No headache, No seizure, No dizziness, No confusion, No vertigo ED Past Medical History - Past Medical History Obtainable: Yes Past Medical History: HTN, CVA/TIA, Dementia Family History: None Social History: Non Smoker, No Alcohol, No Drug Use, Care Facility Surgical History: None Psychiatricy History: Schizophrenia, Dementia Family Medical History - Family Member Mother History Unknown: Yes Ethnicity: Unknown Living Status: Unknown Hx Family Cancer: (UNKNOWN) Hx Family Coronary Artery Disease: (UNKNOWN) Hx Family Congestive Heart Failure: (UNKNOWN) Hx Family Hypertension: (UNKNOWN) Hx Family Stroke: (UNKNOWN) Hx Family Diabetes: (UNKNOWN) Hx Family Seizures: (UNKNOWN) Hx Family Dementia: (UNKNOWN) Hx Family AIDS: (UNKNOWN) Hx Family COPD: (UNKNOWN) Hx Family Hepatitis: (UNKNOWN) Hx Family Psychiatric Problems: (UNKNOWN) Hx Family Tuberculosis: (UNKNOWN) ED Physical Exam - Physical Examination General/Constitutional: Awake, Well-developed, well-nourished, Alert, No distress, GCS 15, Non-toxic appearing, Ambulatory Other Gen/Cons comments:: DISORIENTED TIMES FOUR,A CONFUSED Head: Atraumatic Eyes: Lids, conjuctiva normal, PERRL, EOMI Skin: Nl inspection, No rash, No skin lesions, No ecchymosis, Well hydrated, No lymphadenopathy ENMT: External ears, nose nl, Nasal exam nl, Lips, teeth, gums nl Neck: Nontender, Full ROM w/o pain, No JVD, No nuchal rigidity, No bruit, No mass, No stridor Respiratory: Nl effort/Exclusion, Clear to Auscultation, No Wheeze/Rhonchi/Rales Cardio Vascular: RRR, No murmur, gallop, rubs, NL S1 S2 GI: No tenderness/rebounding/guarding, No organomegaly, No hernia, Normal BS's, Nondistended, No mass/bruits, No McBurney tenderness : No CVA tenderness Extremities: No tenderness or effusion, Full ROM, normal strength in all extremities, No edema, Normal digits & nails Neuro/Psych: Alert/oriented, DTR's symmetric, Normal sensory exam, Normal motor strength, Judgement/insight normal, Mood normal, Normal gait, No focal deficits Misc: Normal back, No paraspinal tenderness ED Labs/Radiology/EKG Results - Lab Results Results: Laboratory Tests 02/07/18 02/07/18 02/07/18 19:31 19:31 19:31 WBC 7.5 RBC 3.39 L Hgb 11.0 L Hct 32.6 L MCV 96.3 MCH 32.4 H MCHC Differential 33.6 RDW 12.7 Plt Count 269 MPV 6.9 Neutrophils % 66.0 Lymphocytes % 18.8 L Monocytes % 7.9 Eosinophils % 6.8 H Basophils % 0.5 PT 13.3 H INR 1.30 PTT (Actin FS) 23.3 L Specimen Source Sample Site pH pCO2 pO2 HCO3 Base Excess O2 Saturation Leo Test Vent Rate Inspired O2 Tidal Volume PEEP Pressure (ins/psv/peep) Critical Value Sodium Potassium Chloride Carbon Dioxide Anion Gap BUN Creatinine Est GFR ( Amer) Est GFR (Non-Af Amer) BUN/Creatinine Ratio Glucose Calcium Total Bilirubin AST ALT Alkaline Phosphatase Troponin I 0.01 Total Protein Albumin Globulin Albumin/Globulin Ratio 02/07/18 02/07/18 19:31 19:50 WBC RBC Hgb Hct MCV MCH MCHC Differential RDW Plt Count MPV Neutrophils % Lymphocytes % Monocytes % Eosinophils % Basophils % PT INR PTT (Actin FS) Specimen Source ARTERIAL Sample Site Right Radial pH 7.45 pCO2 41.0 pO2 68.0 L HCO3 28.0 H Base Excess 4.1 H O2 Saturation 94.0 Leo Test Positive Vent Rate N/A Inspired O2 21 Tidal Volume N/A PEEP N/A Pressure (ins/psv/peep) N/A Critical Value MM,CT TECH Sodium 140 Potassium 4.9 Chloride 104 Carbon Dioxide 28.1 Anion Gap 12.8 BUN 21 Creatinine 1.4 H Est GFR ( Amer) TNP Est GFR (Non-Af Amer) TNP BUN/Creatinine Ratio 15.0 Glucose 126 H Calcium 9.8 Total Bilirubin 0.3 AST 12 L ALT 7 Alkaline Phosphatase 44 Troponin I Total Protein 7.2 Albumin 3.5 L Globulin 3.7 Albumin/Globulin Ratio 1.0 - EKG Interpretations EKG Time:: 20:08 Rate & Rhythm: RATE=73. SINUS [place]: LEFT AXIS, NO ECTOPY SEEN ED Assessment - Assessment General Assessment: PROTRACTED VOMITING ED Septic Shock - . Is Septic Shock (SBP<90, OR Lactate>4 mmol\L) present?: No - <6hrs of presentation: Vital Signs: Vital Signs - 8 hr 02/07/18 19:11 Temp 98.2 F HR 86 RR 16 BP 142/76 O2 Sat % 94 ED Reassessment (Disposition) - Reassessment Reassessment Condition:: Unchanged - Diagnosis Diagnosis:: PROTRACTED VOMITING DEMENTIA - Patient Disposition Discharge/Transfer:: Acute Care w/in this hosp Admitting Medical Physician:: Cady Vargas
[2018-02-07] MEDS: D5-0.45NS 1,000 ML IV SCH (23:39)
[2018-02-07] MEDS: Metoclopramide 5 mg/mL 2mL Vial IVP SCH (23:44)
[2018-02-08] VITALS: BP 150/74
[2018-02-08] MEDS: Metoclopramide 5 mg/mL 2mL Vial IVP SCH ×3 (05:16→21:20)
[2018-02-08 05:21] LABS: % BASOPHILS 1.2 % (0.0-2.0); % LYMPHOCYTES 29.9 % (20.0-50.0); % NEUTROPHILS 53.9 % (40.0-80.0); BASOPHILE ABSOLUTE 0.1 Th/cumm (0-0.2); EOSINOPHILE ABSOLUTE 0.6 Th/cmm (0.1-0.4); HEMATOCRIT 32.7 % (41.0-60); LYMPHOCYTE ABSOLUTE 2.2 Th/cmm (1.5-3.0); MEAN CELL VOLUME 97.4 fl (80-99); MEAN CORPUSCULAR HEMOGLOBIN 32.7 pg (27.0-31.0); MEAN CORPUSCULAR HGB CONC 33.6 pg (28.0-36.0); MEAN PLATELET VOLUME 7.3 fl; MONOCYTE ABSOLUTE 0.5 Th/cmm (0.3-1.0); NEUTROPHILE ABSOLUTE 4.1 Th/cmm (1.8-8.0); PLATELET COUNT 277 Th/cmm (150-400); RED BLOOD COUNT 3.35 Mil/cmm (3.80-5.80); RED CELL DISTRIBUTION WIDTH 12.2 % (11.5-20.0); WHITE BLOOD COUNT 7.5 Th/cmm (4.8-10.8)
[2018-02-08 05:30] LABS: ALBUMIN 3.3 gm/dL (4.2-5.5); ALKALINE PHOSPHATASE 40 U/L (34-104); ANION GAP 9.5 (7.0-16.0); BILIRUBIN,TOTAL 0.3 mg/dL (0.3-1.0); BUN - UREA NITROGEN 19 mg/dL (7-25); CALCIUM SERUM 9.6 mg/dL (8.6-10.3); CARBON DIOXIDE 30.1 mEq/L (21.0-31.0); CHLORIDE 106 mEq/L (98-107); CREATININE - SERUM 1.4 mg/dL (0.7-1.3); GLUCOSE 107 mg/dL (70-105); MAGNESIUM 2.1 mg/dL (1.9-2.7); POTASSIUM SERUM 4.6 mEq/L (3.5-5.1); SGOT 12 U/L (13-39); SGPT/ALT 7 U/L (7-52); SODIUM SERUM 141 mEq/L (136-145); TOTAL PROTEIN,SERUM 6.7 gm/dL (6.0-8.3)
[2018-02-08] MEDS: D5-0.45NS 1,000 ML IV SCH ×2 (09:39→20:14)
--- NOTE | 2018-02-08 09:57 | Diagnostic Imaging Report ---
Portable chest x-ray HISTORY: Vomiting There is a poor inspiration. The heart appears somewhat enlarged. No definite acute focal bony parenchymal processes. IMPRESSION: 1. Allowing for a poor inspiration, no definite acute focal processes 2. Cardiomegaly
--- NOTE | 2018-02-08 09:57 | Diagnostic Imaging Report ---
KUB abdominal film HISTORY: Vomiting The exam demonstrates stool-filled mildly distended colon. Bowel gas pattern otherwise nonspecific. No free intraperitoneal air. IMPRESSION: 1. Mildly distended stool-filled large bowel. Findings may be associated with a degree of constipation. No other acute abnormalities.
[2018-02-08 12:56] LABS: URINE SOURCE CLEAN C
[2018-02-08 12:58] LABS: URINE BILIRUBIN NEGATIVE (NEGATIVE); URINE BLOOD LARGE (NEGATIVE); URINE GLUCOSE (UA) NEGATIVE (NEGATIVE); URINE KETONE NEGATIVE (NEGATIVE); URINE LEUKOCYTE ESTERASE SMALL (NEGATIVE); URINE MICROSCOPIC INDICATED? YES; URINE NITRATE NEGATIVE (NEGATIVE); URINE PH 6.5 (4.6 - 8.0); URINE PROTEIN 30 mg/dL (NEGATIVE); URINE UROBILINOGEN 0.2 E.U./dL (0.2 - 1.0)
[2018-02-08 13:10] LABS: URINE CLARITY TURBID (CLEAR); URINE COLOR YELLOW
[2018-02-08] MEDS ORDERED: Fleet Enema 135 mL RC PRN (13:12)
[2018-02-08] MEDS ORDERED: Magnesium Hydroxide (MOM) 30 mL UDC PO PRN (13:12)
[2018-02-08 13:13] LABS: URINE BACTERIA 1+ /hpf (NONE SEEN); URINE EPITHELIAL CELLS OCCASIONAL /lpf (FEW)
[2018-02-08] MEDS ORDERED: Non-Formulary Item 1 EA (Docusate Sodium [Docusate Sodium] 100 MG) PO SCH (13:15)
[2018-02-08] MEDS ORDERED: Non-Formulary Item 1 EA (Omeprazole [Omeprazole] 20 MG) PO SCH (13:15)
[2018-02-08] MEDS ORDERED: Non-Formulary Item 1 EA (Rivaroxaban [Xarelto] 20 MG) PO SCH (13:15)
[2018-02-08] MEDS ORDERED: OXYBUTYNIN CHLORIDE PO SCH (13:15)
[2018-02-08] MEDS ORDERED: Lactulose 10 Gm/15 mL 30mL UDC PO PRN (13:18)
[2018-02-08] MEDS: Multivitamin w/ Minerals Tab PO SCH (14:32)
[2018-02-08] MEDS: cefTRIAXone 1 GM in Sodium Chloride 0.9% 50 ML IV SCH (14:35)
--- NOTE | 2018-02-08 14:59 | History & Physical ---
ADMIT DATE: 02/08/2018 CHIEF COMPLAINT: Persistent nausea and vomiting. HISTORY OF PRESENT ILLNESS: The patient is a 77-year-old gentleman, a resident of [facility] who was recently admitted here for similar symptoms and was eventually diagnosed with UTI, acute gastroenteritis, acute on chronic renal insufficiency, hydronephrosis, and hyperreactive urinary bladder. He eventually was transferred to [facility] where he finished his antibiotic course and was discharged a few days ago back to [facility]. He presented to this facility again with a 1-day history of persistent nausea and vomiting, but no diarrhea or abdominal pain. He was given IV Zofran, but patient kept having nausea and vomiting and has been electively admitted for further management and care. At this time, he appears to be comfortable and there have been no further episodes of above-mentioned complaint since been admitted. PAST MEDICAL HISTORY: Severe intellectual disability, severe hydronephrosis, history of BPH, status post TURP, essential hypertension, history of previous lower extremity DVT, history of depression, psych disorder, history of left lower extremity wound infection, status post treatment, history of recent cystoscopy with hyperreactive urinary bladder. PAST SURGICAL HISTORY: As noted above. FAMILY HISTORY: Likely noncontributory to this admission. SOCIAL HISTORY: Not able to address, refuses usage. He lives at a longterm. ALLERGIES: NIACIN. OUTPATIENT MEDICATIONS: Tylenol q.4 hours p.r.n. for fever, pain, Dulcolax 10 mg q. 96 hours p.r.n. for severe constipation, calcium carbonate 500 mg b.i.d., vitamin D 1000 international units every day, Dexlansoprazole 60 every day, Depakote 500 mg t.i.d., docusate sodium 100 every day, escitalopram 10 mg every day, fenofibrate 120 q.h.s., Proscar 5 mg q.h.s., omega-3 1000 b.i.d., Fleet enema q. 96 hours p.r.n. for severe pain, metoprolol 25 b.i.d., multivitamins every day, Zyprexa 2.5 at bedtime, oxybutynin 2 tabs every day, ramipril 10 mg b.i.d., Xarelto 20 mg daily, Flomax 0.4. REVIEW OF SYSTEMS: Unable to be done given patient's condition. PHYSICAL EXAMINATION: VITAL SIGNS: Temperature 96.2, pulse 72, respirations 18, BP 124/68, satting 97-98% on room air. GENERAL: He is awake and able to follow simple commands. He is developmentally delayed. HEAD AND NECK: Normocephalic, atraumatic. Pupils reactive to light. Extraocular movements are intact. Oropharynx moist and clear. CARDIOVASCULAR: Regular rate and rhythm without any murmurs. LUNGS: Clear to auscultation bilaterally. ABDOMEN: Soft, supple. There is mild tenderness to palpation on the epigastric area, but rebound, no peritoneal signs. EXTREMITIES: Lower extremities, there is no edema. NEUROLOGIC: A full exam was not able to be done given patient's condition, but appears to be nonfocal. LABORATORY DATA: White count 7.5, H and H 11/32, platelets 269. ABG: pH 7.45, pCO2 of 41, pO2 of 68. Chemistry was within normal limits except for the creatinine 1.4. UA showed large blood, negative nitrite, small leukocyte esterase, 10-25 wbc's, 1+ bacteria. KUB shows mildly distended stool filled large bowel. Chest x-ray: 1. No definite acute focal processes. 2. Cardiomegaly. DIAGNOSTICS: EKG shows sinus rhythm at a rate of 73. IMPRESSION: 1. Protracted nausea, vomiting. 2. Urinary tract infection. 3. Constipation. 4. Mild leukocytosis. 5. Chronic renal insufficiency, secondary to hyperactive bladder. 6. History of severe hydronephrosis 2ry to hyperactive bladder. 7. History of depression, psych disorder. 8. History of essential hypertension. 9. History of lower extremity deep venous thrombosis. PLAN: The patient has been admitted to the medical floor where he has been placed on IV fluids and supportive care including Zofran and Reglan. He also has been started on Rocephin for the urinary tract infection and will be given lactulose for constipation. He will be kept on his other medications including his bowel regimen and a Fleet Enema will be asked for if no improvement of his constipation. We will follow labs as well as cultures. JOB# [id number] [facility]
[2018-02-08] MEDS ORDERED: Fish Oil 1,000 MG SGL PO ONE (15:36)
[2018-02-08] MEDS: Fish Oil 1,000 MG SGL PO SCH (16:32)
[2018-02-08] MEDS ORDERED: Non-Formulary Item 1 EA (Solifenacin Succinate [Vesicare] 5 MG) PO SCH (17:00)
[2018-02-08] MEDS ORDERED: RAMIPRIL 10 MG PO SCH (17:00)
[2018-02-08] MEDS ORDERED: Pantoprazole 40 mg EC Tab PO ONE (19:30)
[2018-02-08] MEDS: Fenofibrate, Micronized 134 mg Cap PO SCH (20:13)
[2018-02-08] MEDS ORDERED: FENOFIBRATE 120 MG PO SCH (21:00)
[2018-02-09 05:36] LABS: % BASOPHILS 0.7 % (0.0-2.0); % EOSINOPHILS 8.8 % (0.0-5.0); % LYMPHOCYTES 26.5 % (20.0-50.0); % MONOCYTES 7.8 % (2.0-10.0); % NEUTROPHILS 56.2 % (40.0-80.0); EOSINOPHILE ABSOLUTE 0.5 Th/cmm (0.1-0.4); HEMATOCRIT 31.5 % (41.0-60); HEMOGLOBIN 10.5 gm/dL (12-16); LYMPHOCYTE ABSOLUTE 1.6 Th/cmm (1.5-3.0); MEAN CORPUSCULAR HEMOGLOBIN 32.1 pg (27.0-31.0); MEAN CORPUSCULAR HGB CONC 33.4 pg (28.0-36.0); MEAN PLATELET VOLUME 6.7 fl; MONOCYTE ABSOLUTE 0.5 Th/cmm (0.3-1.0); NEUTROPHILE ABSOLUTE 3.6 Th/cmm (1.8-8.0); PLATELET COUNT 244 Th/cmm (150-400); RED BLOOD COUNT 3.28 Mil/cmm (3.80-5.80); RED CELL DISTRIBUTION WIDTH 12.7 % (11.5-20.0); WHITE BLOOD COUNT 6.2 Th/cmm (4.8-10.8)
[2018-02-09] MEDS: D5-0.45NS 1,000 ML IV SCH ×2 (05:43→16:00)
[2018-02-09] MEDS: Metoclopramide 5 mg/mL 2mL Vial IVP SCH ×3 (05:44→22:04)
[2018-02-09 06:28] LABS: ANION GAP 10.6 (7.0-16.0); BUN - UREA NITROGEN 19 mg/dL (7-25); CALCIUM SERUM 9.3 mg/dL (8.6-10.3); CARBON DIOXIDE 29.3 mEq/L (21.0-31.0); CHLORIDE 105 mEq/L (98-107); CREATININE - SERUM 1.5 mg/dL (0.7-1.3); GLUCOSE 100 mg/dL (70-105); POTASSIUM SERUM 4.9 mEq/L (3.5-5.1); SODIUM SERUM 140 mEq/L (136-145)
[2018-02-09] MEDS: Fish Oil 1,000 MG SGL PO SCH ×2 (09:05→17:00)
[2018-02-09] MEDS: Multivitamin w/ Minerals Tab PO SCH (09:07)
[2018-02-09] MEDS: Pantoprazole 40 mg EC Tab PO SCH (09:07)
[2018-02-09] MEDS ORDERED: Sodium Chloride 0.9% 500 ML IV ONE (13:45)
--- NOTE | 2018-02-09 14:38 | General Progress Note ---
Subjective - Review of Systems Service Date: 02/09/18 Events since last encounter: ER CONSULT REASON FOR CONSULTATION : ACUTE RESPIRATORY DISTRESS I WAS CALLED TO SEE A PATIENT IN MED/SURGERY IN ACUTE RESPIRATORY DISTRESS AND WAS BEING ASSISTED WITH BY BAG WITH 100% O2, WITH A FAST HEART RATE. THIS EVENT STARTED SUDDENLY WHILE HE WAS EATING. A LARGE PIECE OF CHICKEN WAS REMOVED FROM THE TRACHEA WITH [facility] [employer]. THE SYMPTOMS ABATED AND THE PATIENT BEGAN TO BREATH NORMALLY AND TRANSFERRED TO ICU FOR OBSERVATION. NO ANESTHETIC WAS USED. Objective - Results Result Diagrams: 02/09/18 05:30 02/09/18 05:30 Recent Labs: Laboratory Last Values WBC 6.2 Th/cmm (4.8-10.8) 02/09/18 05:30 RBC 3.28 Mil/cmm (3.80-5.80) L 02/09/18 05:30 Hgb 10.5 gm/dL (12-16) L 02/09/18 05:30 Hct 31.5 % (41.0-60) L 02/09/18 05:30 MCV 96.0 fl (80-99) 02/09/18 05:30 MCH 32.1 pg (27.0-31.0) H 02/09/18 05:30 MCHC Differential 33.4 pg (28.0-36.0) 02/09/18 05:30 RDW 12.7 % (11.5-20.0) 02/09/18 05:30 Plt Count 244 Th/cmm (150-400) 02/09/18 05:30 MPV 6.7 fl 02/09/18 05:30 Neutrophils % 56.2 % (40.0-80.0) 02/09/18 05:30 Lymphocytes % 26.5 % (20.0-50.0) 02/09/18 05:30 Monocytes % 7.8 % (2.0-10.0) 02/09/18 05:30 Eosinophils % 8.8 % (0.0-5.0) H 02/09/18 05:30 Basophils % 0.7 % (0.0-2.0) 02/09/18 05:30 PT 13.3 SECONDS (9.5-11.5) H 02/07/18 19:31 INR 1.30 (0.5-1.4) 02/07/18 19:31 PTT (Actin FS) 23.3 SECONDS (26.0-38.0) L 02/07/18 19:31 Specimen Source ARTERIAL 02/07/18 19:50 Sample Site Right Radial 02/07/18 19:50 pH 7.45 (7.35-7.45) 02/07/18 19:50 pCO2 41.0 mmHg (35.0-45.0) 02/07/18 19:50 pO2 68.0 mmHg (80.0-100.0) L 02/07/18 19:50 HCO3 28.0 mEq/L (20.0-26.0) H 02/07/18 19:50 Base Excess 4.1 mEq/L (-3.0-3.0) H 02/07/18 19:50 O2 Saturation 94.0 % (92.0-100.0) 02/07/18 19:50 Leo Test Positive 02/07/18 19:50 Vent Rate N/A 02/07/18 19:50 Inspired O2 21 02/07/18 19:50 Tidal Volume N/A 02/07/18 19:50 PEEP N/A 02/07/18 19:50 Pressure (ins/psv/peep) N/A 02/07/18 19:50 Critical Value MM,RN RECOVERY 02/07/18 19:50 Sodium 140 mEq/L (136-145) 02/09/18 05:30 Potassium 4.9 mEq/L (3.5-5.1) 02/09/18 05:30 Chloride 105 mEq/L (98-107) 02/09/18 05:30 Carbon Dioxide 29.3 mEq/L (21.0-31.0) 02/09/18 05:30 Anion Gap 10.6 (7.0-16.0) 02/09/18 05:30 BUN 19 mg/dL (7-25) 02/09/18 05:30 Creatinine 1.5 mg/dL (0.7-1.3) H 02/09/18 05:30 Est GFR ( Amer) TNP 02/09/18 05:30 Est GFR (Non-Af Amer) TNP 02/09/18 05:30 BUN/Creatinine Ratio 12.7 02/09/18 05:30 Glucose 100 mg/dL (70-105) 02/09/18 05:30 POC Glucose 95 MG/DL (70 - 105) 02/07/18 23:47 Calcium 9.3 mg/dL (8.6-10.3) 02/09/18 05:30 Magnesium 2.0 mg/dL (1.9-2.7) 02/09/18 05:30 Total Bilirubin 0.3 mg/dL (0.3-1.0) 02/08/18 04:38 AST 12 U/L (13-39) L 02/08/18 04:38 ALT 7 U/L (7-52) 02/08/18 04:38 Alkaline Phosphatase 40 U/L (34-104) 02/08/18 04:38 Troponin I 0.01 ng/mL (0.01-0.05) 02/07/18 19:31 Total Protein 6.7 gm/dL (6.0-8.3) 02/08/18 04:38 Albumin 3.3 gm/dL (4.2-5.5) L 02/08/18 04:38 Globulin 3.4 gm/dL 02/08/18 04:38 Albumin/Globulin Ratio 1.0 (1.0-1.8) 02/08/18 04:38 TSH 8.11 uIU/ml (0.34-5.60) H 02/08/18 04:38 Urine Source CLEAN C 02/08/18 06:00 Urine Color YELLOW 02/08/18 06:00 Urine Clarity TURBID (CLEAR) 02/08/18 06:00 Urine pH 6.5 (4.6 - 8.0) 02/08/18 06:00 Ur Specific [place] 1.015 (1.005-1.030) 02/08/18 06:00 Urine Protein 30 mg/dL (NEGATIVE) H 02/08/18 06:00 Urine Glucose (UA) NEGATIVE mg/dL (NEGATIVE) 02/08/18 06:00 Urine Ketones NEGATIVE mg/dL (NEGATIVE) 02/08/18 06:00 Urine Blood LARGE (NEGATIVE) H 02/08/18 06:00 Urine Nitrate NEGATIVE (NEGATIVE) 02/08/18 06:00 Urine Bilirubin NEGATIVE (NEGATIVE) 02/08/18 06:00 Urine Urobilinogen 0.2 E.U./dL (0.2 - 1.0) 02/08/18 06:00 Ur Leukocyte Esterase SMALL (NEGATIVE) H 02/08/18 06:00 Urine RBC 10-25 /hpf (0-5) H 02/08/18 06:00 Urine WBC 6-10 /hpf (0-5) 02/08/18 06:00 Ur Epithelial Cells OCCASIONAL /lpf (FEW) 02/08/18 06:00 Urine Bacteria 1+ /hpf (NONE SEEN) H 02/08/18 06:00 - Physical Exam Vitals and I&O: Vital Signs Temp 96.0 F 02/09/18 11:35 Pulse 65 02/09/18 11:35 Resp 18 02/09/18 11:35 BP 106/63 02/09/18 11:35 Pulse Ox 98 02/09/18 11:35 Active Medications: Current Medications Acetaminophen (Tylenol) 325 mg PO Q4HR PRN PRN Reason: Pain or Fever >101 Stop: 04/09/18 13:11 Bisacodyl (Dulcolax 10 Mg Supp) 10 mg RC Q96H PRN PRN Reason: Constipation Stop: 04/09/18 13:11 Calcium Carbonate (Os-Tyrone) 500 mg PO BID [facility] Stop: 04/09/18 16:59 Last Admin: 02/09/18 09:12 Dose: 500 mg Cholecalciferol (Vitamin D3) 1,000 iu PO DAILY [facility] Stop: 04/09/18 13:14 Last Admin: 02/09/18 09:05 Dose: 1,000 iu Divalproex Sodium (Depakote Dr) 500 mg PO TID [facility]; Protocol Stop: 04/09/18 13:59 Last Admin: 02/09/18 09:05 Dose: 500 mg Docusate Sodium (Colace) 100 mg PO DAILY [facility] Stop: 04/10/18 08:59 Last Admin: 02/09/18 09:07 Dose: 100 mg Escitalopram Oxalate (Lexapro) 10 mg PO DAILY [facility]; Protocol Stop: 04/09/18 13:14 Last Admin: 02/09/18 09:07 Dose: 10 mg Fenofibrate (Tricor) 134 mg PO HS [facility] Stop: 04/09/18 20:59 Last Admin: 02/08/18 20:13 Dose: 134 mg Finasteride (Proscar) 5 mg PO HS [facility]; Protocol Stop: 04/09/18 20:59 Last Admin: 02/08/18 20:13 Dose: 5 mg Fish Oil ([place] 3) 1,000 mg PO BID [facility] Stop: 04/09/18 16:59 Last Admin: 02/09/18 09:05 Dose: 1,000 mg Dextrose/Sodium Chloride (D5-0.45ns) 1,000 mls @ 100 mls/hr IV .Q10H [facility] Stop: 04/08/18 22:06 Last Admin: 02/09/18 05:43 Dose: 100 mls/hr Ceftriaxone Sodium 1 gm/ (Sodium Chloride) 50 mls @ 100 mls/hr IV Q24HR [facility] Stop: 04/09/18 13:59 Last Infusion: 02/08/18 15:05 Dose: Infused Lactulose (Cephulac) 30 gm PO DAILY PRN PRN Reason: Constipation Stop: 04/09/18 13:17 Magnesium Hydroxide (Milk Of Magnesia) 30 ml PO Q72H PRN PRN Reason: Constipation Stop: 04/09/18 13:11 Metoclopramide HCl (Reglan) 10 mg IVP Q8H [facility] Stop: 04/08/18 22:14 Last Admin: 02/09/18 05:44 Dose: 10 mg Metoprolol Tartrate (Lopressor) 25 mg PO BID [facility] Stop: 04/09/18 16:59 Last Admin: 02/09/18 09:06 Dose: 25 mg Miscellaneous (Solifenacin Succinate [Vesicare]) 5 mg PO QPM [facility] Stop: 04/09/18 16:59 Olanzapine (Zyprexa) 2.5 mg PO HS [facility]; Protocol Stop: 04/09/18 20:59 Last Admin: 02/08/18 20:13 Dose: 2.5 mg Ondansetron HCl (Zofran) 4 mg IV Q4H PRN PRN Reason: Nausea Stop: 04/08/18 22:14 Oxybutynin Chloride (Ditropan) 10 mg PO DAILY [facility] Stop: 04/10/18 08:59 Last Admin: 02/09/18 09:04 Dose: 10 mg Pantoprazole Sodium (Protonix) 40 mg PO DAILY [facility] Stop: 04/10/18 08:59 Last Admin: 02/09/18 09:07 Dose: 40 mg Ramipril (Altace) 10 mg PO BID [facility] Stop: 04/09/18 16:59 Last Admin: 02/09/18 09:06 Dose: 10 mg Rivaroxaban (Xarelto) 20 mg PO DAILY [facility] Stop: 04/10/18 08:59 Last Admin: 02/09/18 09:07 Dose: 20 mg Sodium Phosphate (Fleet Enema) 135 ml RC Q96H PRN PRN Reason: Constipation Stop: 04/09/18 13:11 Tamsulosin HCl (Flomax) 0.4 mg PO HS [facility] Stop: 04/09/18 20:59 Last Admin: 02/08/18 20:13 Dose: 0.4 mg - Procedures Procedures: Procedures Procedure Code Date C & S-INTEGUMENT 91.63 07/11/94 CULTURE OTHR SPECIMN AEROBIC 18444 07/11/94 DILATION OF URETHRA, ENDO [id number] 01/07/18 DX ULTRASOUND-VASCULAR 88.77 02/13/95 ELECTROCARDIOGRAPH MONIT 89.54 02/13/95 INJECT ANTIBIOTIC 99.21 11/25/94 INJECT ANTICOAGULANT 99.19 07/11/94 MICROBE SUSCEPTIBLE DISK 94415 07/11/94 OTHER C.A.T. SCAN 88.38 02/13/95 URINARY SYSTEM X-RAY NEC 87.79 07/11/94 [facility] THERAPY 23088 07/11/94 [facility] TREATMENT 93.32 07/11/94
[2018-02-09] MEDS: cefTRIAXone 1 GM in Sodium Chloride 0.9% 50 ML IV SCH (15:00)
--- NOTE | 2018-02-09 18:36 | General Progress Note ---
Subjective - Review of Systems Service Date: 02/09/18 Subjective: Confused Objective - Results Result Diagrams: 02/09/18 05:30 02/09/18 05:30 Recent Labs: Laboratory Last Values WBC 6.2 Th/cmm (4.8-10.8) 02/09/18 05:30 RBC 3.28 Mil/cmm (3.80-5.80) L 02/09/18 05:30 Hgb 10.5 gm/dL (12-16) L 02/09/18 05:30 Hct 31.5 % (41.0-60) L 02/09/18 05:30 MCV 96.0 fl (80-99) 02/09/18 05:30 MCH 32.1 pg (27.0-31.0) H 02/09/18 05:30 MCHC Differential 33.4 pg (28.0-36.0) 02/09/18 05:30 RDW 12.7 % (11.5-20.0) 02/09/18 05:30 Plt Count 244 Th/cmm (150-400) 02/09/18 05:30 MPV 6.7 fl 02/09/18 05:30 Neutrophils % 56.2 % (40.0-80.0) 02/09/18 05:30 Lymphocytes % 26.5 % (20.0-50.0) 02/09/18 05:30 Monocytes % 7.8 % (2.0-10.0) 02/09/18 05:30 Eosinophils % 8.8 % (0.0-5.0) H 02/09/18 05:30 Basophils % 0.7 % (0.0-2.0) 02/09/18 05:30 PT 13.3 SECONDS (9.5-11.5) H 02/07/18 19:31 INR 1.30 (0.5-1.4) 02/07/18 19:31 PTT (Actin FS) 23.3 SECONDS (26.0-38.0) L 02/07/18 19:31 Specimen Source ARTERIAL 02/07/18 19:50 Sample Site Right Radial 02/07/18 19:50 pH 7.45 (7.35-7.45) 02/07/18 19:50 pCO2 41.0 mmHg (35.0-45.0) 02/07/18 19:50 pO2 68.0 mmHg (80.0-100.0) L 02/07/18 19:50 HCO3 28.0 mEq/L (20.0-26.0) H 02/07/18 19:50 Base Excess 4.1 mEq/L (-3.0-3.0) H 02/07/18 19:50 O2 Saturation 94.0 % (92.0-100.0) 02/07/18 19:50 Leo Test Positive 02/07/18 19:50 Vent Rate N/A 02/07/18 19:50 Inspired O2 21 02/07/18 19:50 Tidal Volume N/A 02/07/18 19:50 PEEP N/A 02/07/18 19:50 Pressure (ins/psv/peep) N/A 02/07/18 19:50 Critical Value MM,LUMBER [employer]ER 02/07/18 19:50 Sodium 140 mEq/L (136-145) 02/09/18 05:30 Potassium 4.9 mEq/L (3.5-5.1) 02/09/18 05:30 Chloride 105 mEq/L (98-107) 02/09/18 05:30 Carbon Dioxide 29.3 mEq/L (21.0-31.0) 02/09/18 05:30 Anion Gap 10.6 (7.0-16.0) 02/09/18 05:30 BUN 19 mg/dL (7-25) 02/09/18 05:30 Creatinine 1.5 mg/dL (0.7-1.3) H 02/09/18 05:30 Est GFR ( Amer) TNP 02/09/18 05:30 Est GFR (Non-Af Amer) TNP 02/09/18 05:30 BUN/Creatinine Ratio 12.7 02/09/18 05:30 Glucose 100 mg/dL (70-105) 02/09/18 05:30 POC Glucose 95 MG/DL (70 - 105) 02/07/18 23:47 Calcium 9.3 mg/dL (8.6-10.3) 02/09/18 05:30 Magnesium 2.0 mg/dL (1.9-2.7) 02/09/18 05:30 Total Bilirubin 0.3 mg/dL (0.3-1.0) 02/08/18 04:38 AST 12 U/L (13-39) L 02/08/18 04:38 ALT 7 U/L (7-52) 02/08/18 04:38 Alkaline Phosphatase 40 U/L (34-104) 02/08/18 04:38 Troponin I 0.01 ng/mL (0.01-0.05) 02/07/18 19:31 Total Protein 6.7 gm/dL (6.0-8.3) 02/08/18 04:38 Albumin 3.3 gm/dL (4.2-5.5) L 02/08/18 04:38 Globulin 3.4 gm/dL 02/08/18 04:38 Albumin/Globulin Ratio 1.0 (1.0-1.8) 02/08/18 04:38 TSH 8.11 uIU/ml (0.34-5.60) H 02/08/18 04:38 Urine Source CLEAN C 02/08/18 06:00 Urine Color YELLOW 02/08/18 06:00 Urine Clarity TURBID (CLEAR) 02/08/18 06:00 Urine pH 6.5 (4.6 - 8.0) 02/08/18 06:00 Ur Specific [place] 1.015 (1.005-1.030) 02/08/18 06:00 Urine Protein 30 mg/dL (NEGATIVE) H 02/08/18 06:00 Urine Glucose (UA) NEGATIVE mg/dL (NEGATIVE) 02/08/18 06:00 Urine Ketones NEGATIVE mg/dL (NEGATIVE) 02/08/18 06:00 Urine Blood LARGE (NEGATIVE) H 02/08/18 06:00 Urine Nitrate NEGATIVE (NEGATIVE) 02/08/18 06:00 Urine Bilirubin NEGATIVE (NEGATIVE) 02/08/18 06:00 Urine Urobilinogen 0.2 E.U./dL (0.2 - 1.0) 02/08/18 06:00 Ur Leukocyte Esterase SMALL (NEGATIVE) H 02/08/18 06:00 Urine RBC 10-25 /hpf (0-5) H 02/08/18 06:00 Urine WBC 6-10 /hpf (0-5) 02/08/18 06:00 Ur Epithelial Cells OCCASIONAL /lpf (FEW) 02/08/18 06:00 Urine Bacteria 1+ /hpf (NONE SEEN) H 02/08/18 06:00 - Physical Exam Vitals and I&O: Vital Signs Temp 97.8 F 02/09/18 15:00 Pulse 55 02/09/18 18:08 Resp 15 02/09/18 17:24 BP 98/48 02/09/18 18:08 Pulse Ox 100 02/09/18 17:24 Intake & Output 02/08/18 02/09/18 02/09/18 18:59 06:59 18:59 Intake Total 8927.488 5199.333 120 Balance 2767.187 8118.333 120 Weight (lbs) 66.451 kg 67.404 kg Intake: Intake, IV Amount 869.166 4093.333 D5-0.45NS 1,000 ml @ 100 564.370 5227.333 mls/hr IV .Q10H [facility] Rx#: [id number] cefTRIAXone 1 gm In 50 Sodium Chloride 0.9% 50 ml @ 100 mls/hr IV Q24HR [facility] Rx#:[id number] Oral 1050 120 Other: # Voids 2 1 # Bowel Movements 1 0 Weight Source Bedscale Bedscale Active Medications: Current Medications Acetaminophen (Tylenol) 325 mg PO Q4HR PRN PRN Reason: Pain or Fever >101 Stop: 04/09/18 13:11 Bisacodyl (Dulcolax 10 Mg Supp) 10 mg RC Q96H PRN PRN Reason: Constipation Stop: 04/09/18 13:11 Calcium Carbonate (Os-Tyrone) 500 mg PO BID [facility] Stop: 04/09/18 16:59 Last Admin: 02/09/18 17:00 Dose: Not Given Cholecalciferol (Vitamin D3) 1,000 iu PO DAILY [facility] Stop: 04/09/18 13:14 Last Admin: 02/09/18 09:05 Dose: 1,000 iu Divalproex Sodium (Depakote Dr) 500 mg PO TID [facility]; Protocol Stop: 04/09/18 13:59 Last Admin: 02/09/18 09:05 Dose: 500 mg Docusate Sodium (Colace) 100 mg PO DAILY [facility] Stop: 04/10/18 08:59 Last Admin: 02/09/18 09:07 Dose: 100 mg Escitalopram Oxalate (Lexapro) 10 mg PO DAILY [facility]; Protocol Stop: 04/09/18 13:14 Last Admin: 02/09/18 09:07 Dose: 10 mg Fenofibrate (Tricor) 134 mg PO HS [facility] Stop: 04/09/18 20:59 Last Admin: 02/08/18 20:13 Dose: 134 mg Finasteride (Proscar) 5 mg PO HS [facility]; Protocol Stop: 04/09/18 20:59 Last Admin: 02/08/18 20:13 Dose: 5 mg Fish Oil ([place] 3) 1,000 mg PO BID [facility] Stop: 04/09/18 16:59 Last Admin: 02/09/18 17:00 Dose: Not Given Dextrose/Sodium Chloride (D5-0.45ns) 1,000 mls @ 100 mls/hr IV .Q10H [facility] Stop: 04/08/18 22:06 Last Admin: 02/09/18 05:43 Dose: 100 mls/hr Ceftriaxone Sodium 1 gm/ (Sodium Chloride) 50 mls @ 100 mls/hr IV Q24HR [facility] Stop: 04/09/18 13:59 Last Infusion: 02/08/18 15:05 Dose: Infused Lactulose (Cephulac) 30 gm PO DAILY PRN PRN Reason: Constipation Stop: 04/09/18 13:17 Magnesium Hydroxide (Milk Of Magnesia) 30 ml PO Q72H PRN PRN Reason: Constipation Stop: 04/09/18 13:11 Metoclopramide HCl (Reglan) 10 mg IVP Q8H [facility] Stop: 04/08/18 22:14 Last Admin: 02/09/18 14:15 Dose: Not Given Metoprolol Tartrate (Lopressor) 25 mg PO BID [facility] Stop: 04/09/18 16:59 Last Admin: 02/09/18 18:08 Dose: Not Given Miscellaneous (Solifenacin Succinate [Vesicare]) 5 mg PO QPM [facility] Stop: 04/09/18 16:59 Olanzapine (Zyprexa) 2.5 mg PO HS [facility]; Protocol Stop: 04/09/18 20:59 Last Admin: 02/08/18 20:13 Dose: 2.5 mg Ondansetron HCl (Zofran) 4 mg IV Q4H PRN PRN Reason: Nausea Stop: 04/08/18 22:14 Oxybutynin Chloride (Ditropan) 10 mg PO DAILY [facility] Stop: 04/10/18 08:59 Last Admin: 02/09/18 09:04 Dose: 10 mg Pantoprazole Sodium (Protonix) 40 mg PO DAILY [facility] Stop: 04/10/18 08:59 Last Admin: 02/09/18 09:07 Dose: 40 mg Ramipril (Altace) 10 mg PO BID [facility] Stop: 04/09/18 16:59 Last Admin: 02/09/18 17:00 Dose: Not Given Rivaroxaban (Xarelto) 20 mg PO DAILY [facility] Stop: 04/10/18 08:59 Last Admin: 02/09/18 09:07 Dose: 20 mg Sodium Phosphate (Fleet Enema) 135 ml RC Q96H PRN PRN Reason: Constipation Stop: 04/09/18 13:11 Tamsulosin HCl (Flomax) 0.4 mg PO HS [facility] Stop: 04/09/18 20:59 Last Admin: 02/08/18 20:13 Dose: 0.4 mg General: Other (Confused) HEENT: Atraumatic, PERRLA Neck: Supple Cardiovascular: Regular rate Lungs: Clear to auscultation Abdomen: Bowel sounds, Soft Extremities: Other (No edema) Neurological: Other (Non ambulatory) Skin: Other (Warm and dry) Psych/Mental Status: Other (Confused, not oriented) - Procedures Procedures: Procedures Procedure Code Date C & S-INTEGUMENT 91.63 07/11/94 CULTURE OTHR SPECIMN AEROBIC 67273 07/11/94 DILATION OF URETHRA, ENDO [id number] 01/07/18 DX ULTRASOUND-VASCULAR 88.77 02/13/95 ELECTROCARDIOGRAPH MONIT 89.54 02/13/95 INJECT ANTIBIOTIC 99.21 11/25/94 INJECT ANTICOAGULANT 99.19 07/11/94 MICROBE SUSCEPTIBLE DISK 68018 07/11/94 OTHER C.A.T. SCAN 88.38 02/13/95 URINARY SYSTEM X-RAY NEC 87.79 07/11/94 [place] THERAP[facility] 48552 07/11/94 [facility] TREATMENT 93.32 07/11/94 Assessment/Plan - Assessment Assessment: patient is sleeping but arousable, he is in Nasal O2, BP 133/60, HR 60, he was transferred to ICU sdue that he had an episode of SOB, secondary to a big piece of chicken stuck in throat. Now is stable breathing well. Dx: Protacted Nausea and vomit, UTI, CKD, HTN, CVA/TIA, BPH, Hydronephrosis, Mentally challenge, Dementia. - Plan Plan: Patient is in [facility] for right now, IV NS, IV AB, Nasal O2, Continue with SNF meds. He already received IV NS bolus and BP improved. Will continue to monitor.
[2018-02-09] MEDS: Fenofibrate, Micronized 134 mg Cap PO SCH (22:05)
[2018-02-10] MEDS: D5-0.45NS 1,000 ML IV SCH ×3 (03:00→23:11)
[2018-02-10 04:07] LABS: % BASOPHILS 0.5 % (0.0-2.0); % EOSINOPHILS 0.1 % (0.0-5.0); % LYMPHOCYTES 9.1 % (20.0-50.0); % MONOCYTES 2.1 % (2.0-10.0); % NEUTROPHILS 88.2 % (40.0-80.0); HEMATOCRIT 28.2 % (41.0-60); HEMOGLOBIN 9.3 gm/dL (12-16); LYMPHOCYTE ABSOLUTE 0.7 Th/cmm (1.5-3.0); MEAN CELL VOLUME 96.9 fl (80-99); MEAN CORPUSCULAR HEMOGLOBIN 31.8 pg (27.0-31.0); MEAN CORPUSCULAR HGB CONC 32.8 pg (28.0-36.0); MEAN PLATELET VOLUME 6.8 fl; MONOCYTE ABSOLUTE 0.2 Th/cmm (0.3-1.0); NEUTROPHILE ABSOLUTE 7.3 Th/cmm (1.8-8.0); PLATELET COUNT 248 Th/cmm (150-400); RED BLOOD COUNT 2.91 Mil/cmm (3.80-5.80); RED CELL DISTRIBUTION WIDTH 12.2 % (11.5-20.0); WHITE BLOOD COUNT 8.2 Th/cmm (4.8-10.8)
[2018-02-10 04:31] LABS: ALBUMIN 2.9 gm/dL (4.2-5.5); ALKALINE PHOSPHATASE 33 U/L (34-104); ANION GAP 12.4 (7.0-16.0); BILIRUBIN,TOTAL 0.3 mg/dL (0.3-1.0); BUN - UREA NITROGEN 19 mg/dL (7-25); CARBON DIOXIDE 24.4 mEq/L (21.0-31.0); CHLORIDE 107 mEq/L (98-107); CREATININE - SERUM 1.6 mg/dL (0.7-1.3); GLUCOSE 153 mg/dL (70-105); POTASSIUM SERUM 4.8 mEq/L (3.5-5.1); SGOT 13 U/L (13-39); SGPT/ALT 6 U/L (7-52); SODIUM SERUM 139 mEq/L (136-145); TOTAL PROTEIN,SERUM 5.8 gm/dL (6.0-8.3)
[2018-02-10] MEDS: Metoclopramide 5 mg/mL 2mL Vial IVP SCH ×3 (06:50→23:10)
[2018-02-10] MEDS: Multivitamin w/ Minerals Tab PO SCH (09:01)
[2018-02-10] MEDS: Pantoprazole 40 mg EC Tab PO SCH (09:02)
[2018-02-10] MEDS: Fish Oil 1,000 MG SGL PO SCH ×2 (09:03→16:27)
--- NOTE | 2018-02-10 10:55 | General Progress Note ---
Subjective - Review of Systems Service Date: 02/10/18 Subjective: Confused Objective - Results Result Diagrams: 02/10/18 04:01 02/10/18 04:01 Recent Labs: Laboratory Last Values WBC 8.2 Th/cmm (4.8-10.8) 02/10/18 04:01 RBC 2.91 Mil/cmm (3.80-5.80) L 02/10/18 04:01 Hgb 9.3 gm/dL (12-16) L 02/10/18 04:01 Hct 28.2 % (41.0-60) L 02/10/18 04:01 MCV 96.9 fl (80-99) 02/10/18 04:01 MCH 31.8 pg (27.0-31.0) H 02/10/18 04:01 MCHC Differential 32.8 pg (28.0-36.0) 02/10/18 04:01 RDW 12.2 % (11.5-20.0) 02/10/18 04:01 Plt Count 248 Th/cmm (150-400) 02/10/18 04:01 MPV 6.8 fl 02/10/18 04:01 Neutrophils % 88.2 % (40.0-80.0) H 02/10/18 04:01 Lymphocytes % 9.1 % (20.0-50.0) L 02/10/18 04:01 Monocytes % 2.1 % (2.0-10.0) 02/10/18 04:01 Eosinophils % 0.1 % (0.0-5.0) 02/10/18 04:01 Basophils % 0.5 % (0.0-2.0) 02/10/18 04:01 PT 13.3 SECONDS (9.5-11.5) H 02/07/18 19:31 INR 1.30 (0.5-1.4) 02/07/18 19:31 PTT (Actin FS) 23.3 SECONDS (26.0-38.0) L 02/07/18 19:31 Specimen Source ARTERIAL 02/07/18 19:50 Sample Site Right Radial 02/07/18 19:50 pH 7.45 (7.35-7.45) 02/07/18 19:50 pCO2 41.0 mmHg (35.0-45.0) 02/07/18 19:50 pO2 68.0 mmHg (80.0-100.0) L 02/07/18 19:50 HCO3 28.0 mEq/L (20.0-26.0) H 02/07/18 19:50 Base Excess 4.1 mEq/L (-3.0-3.0) H 02/07/18 19:50 O2 Saturation 94.0 % (92.0-100.0) 02/07/18 19:50 Leo Test Positive 02/07/18 19:50 Vent Rate N/A 02/07/18 19:50 Inspired O2 21 02/07/18 19:50 Tidal Volume N/A 02/07/18 19:50 PEEP N/A 02/07/18 19:50 Pressure (ins/psv/peep) N/A 02/07/18 19:50 Critical Value MM,PLACEMENT DIRECTOR 02/07/18 19:50 Sodium 139 mEq/L (136-145) 02/10/18 04:01 Potassium 4.8 mEq/L (3.5-5.1) 02/10/18 04:01 Chloride 107 mEq/L (98-107) 02/10/18 04:01 Carbon Dioxide 24.4 mEq/L (21.0-31.0) 02/10/18 04:01 Anion Gap 12.4 (7.0-16.0) 02/10/18 04:01 BUN 19 mg/dL (7-25) 02/10/18 04:01 Creatinine 1.6 mg/dL (0.7-1.3) H 02/10/18 04:01 Est GFR ( Amer) TNP 02/10/18 04:01 Est GFR (Non-Af Amer) TNP 02/10/18 04:01 BUN/Creatinine Ratio 11.9 02/10/18 04:01 Glucose 153 mg/dL (70-105) H 02/10/18 04:01 POC Glucose 95 MG/DL (70 - 105) 02/07/18 23:47 Calcium 9.0 mg/dL (8.6-10.3) 02/10/18 04:01 Magnesium 2.0 mg/dL (1.9-2.7) 02/09/18 05:30 Total Bilirubin 0.3 mg/dL (0.3-1.0) 02/10/18 04:01 AST 13 U/L (13-39) 02/10/18 04:01 ALT 6 U/L (7-52) L 02/10/18 04:01 Alkaline Phosphatase 33 U/L (34-104) L 02/10/18 04:01 Troponin I 0.01 ng/mL (0.01-0.05) 02/07/18 19:31 Total Protein 5.8 gm/dL (6.0-8.3) L 02/10/18 04:01 Albumin 2.9 gm/dL (4.2-5.5) L 02/10/18 04:01 Globulin 2.9 gm/dL 02/10/18 04:01 Albumin/Globulin Ratio 1.0 (1.0-1.8) 02/10/18 04:01 TSH 8.11 uIU/ml (0.34-5.60) H 02/08/18 04:38 Urine Source CLEAN C 02/08/18 06:00 Urine Color YELLOW 02/08/18 06:00 Urine Clarity TURBID (CLEAR) 02/08/18 06:00 Urine pH 6.5 (4.6 - 8.0) 02/08/18 06:00 Ur Specific [place] 1.015 (1.005-1.030) 02/08/18 06:00 Urine Protein 30 mg/dL (NEGATIVE) H 02/08/18 06:00 Urine Glucose (UA) NEGATIVE mg/dL (NEGATIVE) 02/08/18 06:00 Urine Ketones NEGATIVE mg/dL (NEGATIVE) 02/08/18 06:00 Urine Blood LARGE (NEGATIVE) H 02/08/18 06:00 Urine Nitrate NEGATIVE (NEGATIVE) 02/08/18 06:00 Urine Bilirubin NEGATIVE (NEGATIVE) 02/08/18 06:00 Urine Urobilinogen 0.2 E.U./dL (0.2 - 1.0) 02/08/18 06:00 Ur Leukocyte Esterase SMALL (NEGATIVE) H 02/08/18 06:00 Urine RBC 10-25 /hpf (0-5) H 02/08/18 06:00 Urine WBC 6-10 /hpf (0-5) 02/08/18 06:00 Ur Epithelial Cells OCCASIONAL /lpf (FEW) 12/23/18 06:00 Urine Bacteria 1+ /hpf (NONE SEEN) H 02/08/18 06:00 - Physical Exam Vitals and I&O: Vital Signs Temp 99.1 F 02/10/18 09:00 Pulse 70 02/10/18 09:03 Resp 15 02/10/18 09:00 BP 91/42 02/10/18 09:03 Pulse Ox 96 02/10/18 09:00 Intake & Output 02/09/18 02/10/18 02/10/18 18:59 06:59 18:59 Intake Total 1670 1000 Balance 1670 1000 Weight (lbs) 67.132 kg Intake: Intake, IV Amount 1050 1000 D5-0.45NS 1,000 ml @ 100 1000 1000 mls/hr IV .Q10H [facility] Rx#: [id number] cefTRIAXone 1 gm In 50 Sodium Chloride 0.9% 50 ml @ 100 mls/hr IV Q24HR [facility] Rx#:[id number] Oral 120 Other 500 Other: # Voids 1 # Bowel Movements 0 Stool Characteristics Soft Brown Weight Source Bedscale Active Medications: Current Medications Acetaminophen (Tylenol) 325 mg PO Q4HR PRN PRN Reason: Pain or Fever >101 Stop: 04/09/18 13:11 Bisacodyl (Dulcolax 10 Mg Supp) 10 mg RC Q96H PRN PRN Reason: Constipation Stop: 04/09/18 13:11 Calcium Carbonate (Os-Tyrone) 500 mg PO BID [facility] Stop: 04/09/18 16:59 Last Admin: 02/10/18 09:02 Dose: 500 mg Cholecalciferol (Vitamin D3) 1,000 iu PO DAILY [facility] Stop: 04/09/18 13:14 Last Admin: 02/10/18 09:03 Dose: 1,000 iu Divalproex Sodium (Depakote Dr) 500 mg PO TID [facility]; Protocol Stop: 04/09/18 13:59 Last Admin: 02/10/18 09:03 Dose: 500 mg Docusate Sodium (Colace) 100 mg PO DAILY [facility] Stop: 04/10/18 08:59 Last Admin: 02/10/18 09:01 Dose: 100 mg Escitalopram Oxalate (Lexapro) 10 mg PO DAILY [facility]; Protocol Stop: 04/09/18 13:14 Last Admin: 02/10/18 09:03 Dose: 10 mg Fenofibrate (Tricor) 134 mg PO HS [facility] Stop: 04/09/18 20:59 Last Admin: 02/09/18 22:05 Dose: Not Given Finasteride (Proscar) 5 mg PO HS [facility]; Protocol Stop: 04/09/18 20:59 Last Admin: 02/09/18 22:05 Dose: Not Given Fish Oil ([place] 3) 1,000 mg PO BID [facility] Stop: 04/09/18 16:59 Last Admin: 02/10/18 09:03 Dose: 1,000 mg Dextrose/Sodium Chloride (D5-0.45ns) 1,000 mls @ 100 mls/hr IV .Q10H [facility] Stop: 04/08/18 22:06 Last Admin: 02/10/18 03:00 Dose: 100 mls/hr Ceftriaxone Sodium 1 gm/ (Sodium Chloride) 50 mls @ 100 mls/hr IV Q24HR [facility] Stop: 04/09/18 13:59 Last Infusion: 02/09/18 18:46 Dose: Infused Lactulose (Cephulac) 30 gm PO DAILY PRN PRN Reason: Constipation Stop: 04/09/18 13:17 Magnesium Hydroxide (Milk Of Magnesia) 30 ml PO Q72H PRN PRN Reason: Constipation Stop: 04/09/18 13:11 Metoclopramide HCl (Reglan) 10 mg IVP Q8H [facility] Stop: 04/08/18 22:14 Last Admin: 02/10/18 06:50 Dose: 10 mg Metoprolol Tartrate (Lopressor) 25 mg PO BID [facility] Stop: 04/09/18 16:59 Last Admin: 02/10/18 09:03 Dose: Not Given Olanzapine (Zyprexa) 2.5 mg PO HS [facility]; Protocol Stop: 04/09/18 20:59 Last Admin: 02/09/18 22:04 Dose: 2.5 mg Ondansetron HCl (Zofran) 4 mg IV Q4H PRN PRN Reason: Nausea Stop: 04/08/18 22:14 Oxybutynin Chloride (Ditropan) 5 mg PO BID [facility] Stop: 04/10/18 08:59 Pantoprazole Sodium (Protonix) 40 mg PO DAILY [facility] Stop: 04/10/18 08:59 Last Admin: 02/10/18 09:02 Dose: 40 mg Ramipril (Altace) 10 mg PO BID [facility] Stop: 04/09/18 16:59 Last Admin: 02/10/18 09:02 Dose: Not Given Rivaroxaban (Xarelto) 20 mg PO DAILY [facility] Stop: 04/10/18 08:59 Last Admin: 02/10/18 09:03 Dose: 20 mg Sodium Phosphate (Fleet Enema) 135 ml RC Q96H PRN PRN Reason: Constipation Stop: 04/09/18 13:11 Tamsulosin HCl (Flomax) 0.4 mg PO HS [facility] Stop: 04/09/18 20:59 Last Admin: 02/09/18 22:03 Dose: 0.4 mg General: Other (Confused) HEENT: Atraumatic, PERRLA Neck: Supple Cardiovascular: Regular rate Lungs: Clear to auscultation Abdomen: Bowel sounds, Soft Extremities: Other (No edema) Neurological: Other (Non ambulatory) Skin: Other (Warm and dry) Psych/Mental Status: Other (Confused, not oriented) - Procedures Procedures: Procedures Procedure Code Date C & S-INTEGUMENT 91.63 07/11/94 CULTURE OTHR SPECIMN AEROBIC 19533 07/11/94 DILATION OF URETHRA, ENDO [id number] 01/07/18 DX ULTRASOUND-VASCULAR 88.77 02/13/95 ELECTROCARDIOGRAPH MONIT 89.54 02/13/95 INJECT ANTIBIOTIC 99.21 11/25/94 INJECT ANTICOAGULANT 99.19 07/11/94 MICROBE SUSCEPTIBLE DISK 16234 07/11/94 OTHER C.A.T. SCAN 88.38 02/13/95 URINARY SYSTEM X-RAY NEC 87.79 07/11/94 WHIRLPOOL THERAPY 21231 07/11/94 WHIRLPOOL TREATMENT 93.32 07/11/94 Assessment/Plan - Assessment Assessment: patient is sleeping but arousable, he is stable. Dx: Protacted Nausea and vomit , UTI, CKD, HTN, CVA/TIA, BPH, Hydronephrosis, Mentally challenge, Dementia. - Plan Plan: Patient is transferred to [facility]. Nasal O2, Continue with SNF meds. Will continue to monitor.
[2018-02-10] MEDS: cefTRIAXone 1 GM in Sodium Chloride 0.9% 50 ML IV SCH (13:46)
[2018-02-10] MEDS: Fenofibrate, Micronized 134 mg Cap PO SCH (20:51)
[2018-02-11 06:43] LABS: % EOSINOPHILS 3.2 % (0.0-5.0); % LYMPHOCYTES 35.9 % (20.0-50.0); % MONOCYTES 7.5 % (2.0-10.0); % NEUTROPHILS 52.4 % (40.0-80.0); BASOPHILE ABSOLUTE 0.1 Th/cumm (0-0.2); EOSINOPHILE ABSOLUTE 0.2 Th/cmm (0.1-0.4); HEMATOCRIT 27.9 % (41.0-60); HEMOGLOBIN 9.2 gm/dL (12-16); LYMPHOCYTE ABSOLUTE 2.7 Th/cmm (1.5-3.0); MEAN CELL VOLUME 97.4 fl (80-99); MEAN CORPUSCULAR HEMOGLOBIN 32.2 pg (27.0-31.0); MEAN CORPUSCULAR HGB CONC 33.1 pg (28.0-36.0); MONOCYTE ABSOLUTE 0.6 Th/cmm (0.3-1.0); NEUTROPHILE ABSOLUTE 3.8 Th/cmm (1.8-8.0); PLATELET COUNT 207 Th/cmm (150-400); RED BLOOD COUNT 2.87 Mil/cmm (3.80-5.80); RED CELL DISTRIBUTION WIDTH 12.5 % (11.5-20.0); WHITE BLOOD COUNT 7.4 Th/cmm (4.8-10.8)
[2018-02-11 07:08] LABS: ANION GAP 10.6 (7.0-16.0); BUN - UREA NITROGEN 19 mg/dL (7-25); CARBON DIOXIDE 27.7 mEq/L (21.0-31.0); CHLORIDE 107 mEq/L (98-107); CREATININE - SERUM 1.5 mg/dL (0.7-1.3); GLUCOSE 95 mg/dL (70-105); POTASSIUM SERUM 4.3 mEq/L (3.5-5.1); SODIUM SERUM 141 mEq/L (136-145)
[2018-02-11] MEDS: Metoclopramide 5 mg/mL 2mL Vial IVP SCH ×2 (07:25→13:22)
[2018-02-11] MEDS: Multivitamin w/ Minerals Tab PO SCH (08:24)
[2018-02-11] MEDS: Pantoprazole 40 mg EC Tab PO SCH (08:24)
[2018-02-11] MEDS: Fish Oil 1,000 MG SGL PO SCH ×2 (08:25→16:15)
[2018-02-11] MEDS: D5-0.45NS 1,000 ML IV SCH (10:34)
[2018-02-11] MEDS ORDERED: POLYETHYLENE GLYCOL 3350 17 GM PACK PO PRN (11:25)
[2018-02-11] MEDS: cefTRIAXone 1 GM in Sodium Chloride 0.9% 50 ML IV SCH (13:22)
--- NOTE | 2018-02-11 19:30 | Discharge Summary ---
DATE OF DISCHARGE: 02/11/2018 DATE OF DISCHARGE: 02/11/2018. ADMITTING DIAGNOSES: 1. Protracted nausea and vomiting. 2. Urinary tract infection. 3. Constipation. 4. Mild leukocytosis. SECONDARY DIAGNOSES: 1. Chronic renal insufficiency secondary to hyperactive bladder. 2. History of severe hydronephrosis. 3. History of depression. 4. Psych disorder. 5. History of essential hypertension. 6. History of lower extremity deep venous thrombosis. 7. History of dyslipidemia. 8. History of chronic anemia. DISCHARGE DIAGNOSES: 1. Protracted nausea, vomiting - likely 2ry to UTI vs ileus vs less likely AGE - resolved. 2. Urinary tract infection - clinically stable. 3. History of dysphagia with a choking episode - clinically stable. 4. Ileus/constipation-clinically improved. CONSULTANTS: No consultants were used during this admission. SIGNIFICANT FINDINGS/MAJOR PROCEDURES: There was a KUB done on admission showing mildly distended stool filled large bowel. Findings may be associated with a degree of constipation. Chest x-ray done on admission showed: 1. No definite acute focal processes. 2. Cardiomegaly. BRIEF HOSPITAL COURSE: A 77-year-old male, resident of [facility] who was recently admitted to this facility with UTI, acute gastroenteritis, and acute on chronic renal insufficiency as well as hydronephrosis. The patient was transferred back to the ER with a 1-day history of persistent nausea and vomiting, but there was no mention of diarrhea or abdominal pain. The patient was given IV Zofran at the ER, but his nausea did not improve; therefore, he was electively admitted for further management and care with diagnosis of protracted nausea, vomiting. Other findings include a UA consistent with a UTI and a KUB showed a mildly distended stool filled large bowel. He was placed on IV fluids, bowel regimen including Dulcolax per rectum and IV antibiotics namely Rocephin daily. On hospital day #2, the patient had a choking spell while eating lunch and was transferred to the ICU for close monitoring. He was placed on oxygen support, but was quickly noted to improve with good O2 sats and vital signs, therefore, he was transferred back to the telemetry garner. Since being transferred back to tele garner, the patient has remained stable, tolerating his p.o. as well with no evidence of further choking spells. His vital signs have remained stable with no episodes of fevers and his labs have also remained at baseline on discharge. He has had no further episode of emesis and has had regular bowel movements. DISCHARGE MEDICATIONS: Iron sulfate 325 mg t.i.d., acetaminophen 325 mg q. 4 p.r.n. for pain, Dulcolax suppository 10 mg daily p.r.n. for constipation, calcium carbonate 500 mg b.i.d., vitamin D3 1000 international units q. day, Dexilant 60 mg q. day, Depakote 500 mg t.i.d., docusate sodium 250 mg b.i.d., Lexapro 10 mg q. day, fenofibrate 120 mg at bedtime, Proscar 5 mg at bedtime, fish oil 1000 mg b.i.d., fleet enema 135 mL per rectum q. 96 hours p.r.n. for severe constipation, milk of magnesia 30 mL q. 72 hours, metoprolol 25 mg b.i.d., multivitamins and minerals q. day, olanzapine 2.5 mg at bedtime, omeprazole 20 mg q. day, oxybutynin 15 mg 2 tabs daily, Altace 10 mg b.i.d., Xarelto 20 mg q. day, VESIcare 5 mg q.p.m., Flomax 0.4 mg at bedtime. CONDITION ON DISCHARGE: Stable. DISPOSITION: The patient was transferred back to [facility] under the care of Dr. Joseph. [facility]# [id number] [facility]
--- NOTE | 2018-03-11 10:55 | History & Physical ---
ADMIT DATE: 02/08/2018 CHIEF COMPLAINT: Nausea, vomiting and diarrhea. HISTORY OF PRESENT ILLNESS: The patient is of 77-year-old gentleman who resides at [facility] who has been admitted couple of times in the last few months for infection including UTI and gastroenteritis, who apparently had a 1-day history of nausea, vomiting and diarrhea, reportedly about 8 episodes of nausea and vomiting. The patient was transferred to the ER where pertinent findings include potassium of 5.3, BUN and creatinine of 34/2.0 and a UA consistent with a UTI. Overnight, the patient also converted to AFib with a rate of 140s-150s, but now is back to normal sinus rhythm after being given a beta alisia or after being given metoprolol. He appears lethargic and somewhat weak and unable to provide any history. PAST MEDICAL HISTORY: Severe intellectual disability, severe hydronephrosis, history of benign prostatic hypertrophy, status post TURP, essential hypertension, history of previous lower extremity DVT, history of depression/psych disorder, history of left lower extremity wound infection, history of recent cystoscopy with hyperactive urinary bladder. PAST SURGICAL HISTORY: No major surgeries noted or reported. FAMILY HISTORY: Likely noncontributory to this admission. SOCIAL HISTORY: No tobacco, ETOH or illicit drug usage. He lives in a residential. ALLERGIES: NIACIN. OUTPATIENT MEDICATIONS: Tylenol 325 q.4 p.r.n. for pain or fever, calcium 500 mg b.i.d., vitamin D3 one tab every day, Dexilant 1 cap every day, Depakote 500 mg t.i.d., docusate sodium 250 every day. Zofran 4 mg q.6 hours p.r.n. for nausea, vomiting. MiraLax 1 packet every day or 17 g every day, Altace on 10 mg b.i.d., Xarelto 20 mg every day, VESIcare 5 mg every day. REVIEW OF SYSTEMS: Not able to be obtained given the patient's condition, please refer to the HPI. PHYSICAL EXAMINATION: VITAL SIGNS: Temperature 97.4, pulse 69, respirations 18, BP 98/50, satting 97% on room air. GENERAL: Well-nourished, developmentally delayed male, currently asleep, no acute distress. He is nontoxic appearing. NECK: There is no JVD or LAD. CARDIOVASCULAR: Currently, regular rate and rhythm without any murmurs. LUNGS: Clear to auscultation bilaterally. ABDOMEN: Soft, supple, nontender, nondistended, normoactive bowel sounds. EXTREMITIES: No edema. NEUROLOGIC: Full exam cannot be done, but cranial nerves 2-12 appear to be within normal limits. LABORATORY DATA: On admission, white count 9.0, H and H 10/29, platelet count of 79. Potassium 5.3, BUN and creatinine 35/2.0. Glucose 123, AST 10, ALT 6. Lipase 17. UA showed small blood, positive nitrite, moderate leukocyte esterase, 2-5 rbc's, 10-25 wbc's with 2+ bacteria. DIAGNOSTICS: Chest x-ray shows developing right basilar atelectasis versus infiltrate, mild cardiomegaly and EKG done on admission shows sinus rhythm at a rate of 81. ASSESSMENT: 1. Sepsis likely secondary to urinary tract infection and developing pneumonia. 2. Urinary tract infection. 3. Developing right basilar atelectasis versus infiltrate. 4. Hyperkalemia. 5. Acute on chronic renal insufficiency. 6. History of hydronephrosis. 7. History of intellectual disability. 8. History of essential hypertension. 9. Dyslipidemia. 10. Chronic anemia. 11. New onset atrial fibrillation with rapid ventricular response, now rate controlled. PLAN: The patient has been admitted to [facility] where he has been placed on IV fluids, IV antibiotics, namely Rocephin and will be kept on his other medications as scheduled. I have started a beta alisia and a 2D echo as well as a Cardiology consult have also been placed. He will receive Kayexalate for his elevated potassium level and will continue to monitor labs on a daily basis. He has been pancultured and a followup x-ray will be done. Also to follow up on the right lower infiltrate. JOB# [id number]
== END 2018-02-11 19:30 | DRG 683 ==
LOC: ER 19:02 → TELE 22:05 → ICU 02-09 13:51 → TELE 02-10 18:10
PROVIDERS: ADMIT Internal Medicine; ATTEND Internal Medicine
DX: N17.9 Acute kidney failure, unspecified (principal); K56.7 Ileus, unspecified; F72 Severe intellectual disabilities; N13.6 Pyonephrosis; K59.00 Constipation, unspecified; K52.9 Noninfective gastroenteritis and colitis, unspecified; N18.2 Chronic kidney disease, stage 2 (mild); R11.2 Nausea with vomiting, unspecified; F03.90 Unspecified dementia, unspecified severity, without behavioral disturbance, psychotic disturbance, mood disturbance, and anxiety; N40.0 Benign prostatic hyperplasia without lower urinary tract symptoms; F32.9 Major depressive disorder, single episode, unspecified; N32.81 Overactive bladder; I12.9 Hypertensive chronic kidney disease with stage 1 through stage 4 chronic kidney disease, or unspecified chronic kidney disease; R13.10 Dysphagia, unspecified; D64.9 Anemia, unspecified; Z86.718 Personal history of other venous thrombosis and embolism; Z88.8 Allergy status to other drugs, medicaments and biological substances; Z86.73 Personal history of transient ischemic attack (TIA), and cerebral infarction without residual deficits
CPT/HCPCS: 36415-UA; 36600-90; 71045-TC; 74000-TC; 80048-TC; 80053-TC; 81001-TC; 82803-TC; 82948-90; 83735-TC; 84443-TC; 84484-TC; 85025-TC; 85610-TC; 85730-TC; 93005; 94760; A4217; J0696; J2765; J2930; X3401; Z7610

== ENCOUNTER 2018-03-10 14:15 | Inpatient (IN) | payer MEDICARE, MEDICAID ==
[2018-03-10 15:17] LABS: INR 1.11 (0.5-1.4); PROTHROMBIN TIME (TEST) 11.4 SECONDS (9.5-11.5)
[2018-03-10 15:20] LABS: % BASOPHILS 0.4 % (0.0-2.0); % EOSINOPHILS 6.7 % (0.0-5.0); % LYMPHOCYTES 16.4 % (20.0-50.0); % MONOCYTES 10.1 % (2.0-10.0); % NEUTROPHILS 66.4 % (40.0-80.0); ALB/GLOB RATIO 0.9 (1.0-1.8); ALBUMIN 3.2 gm/dL (4.2-5.5); ALKALINE PHOSPHATASE 27 U/L (34-104); ANION GAP 12.4 (7.0-16.0); BILIRUBIN,TOTAL 0.2 mg/dL (0.3-1.0); BUN - UREA NITROGEN 35 mg/dL (7-25); CALCIUM SERUM 9.1 mg/dL (8.6-10.3); CARBON DIOXIDE 24.9 mEq/L (21.0-31.0); CHLORIDE 104 mEq/L (98-107); CREATININE KINASE 31 U/L (30-223); EOSINOPHILE ABSOLUTE 0.6 Th/cmm (0.1-0.4); GLUCOSE 123 mg/dL (70-105); HEMATOCRIT 29.7 % (41.0-60); HEMOGLOBIN 10.1 gm/dL (12-16); LYMPHOCYTE ABSOLUTE 1.5 Th/cmm (1.5-3.0); MEAN CELL VOLUME 95.6 fl (80-99); MEAN CORPUSCULAR HEMOGLOBIN 32.4 pg (27.0-31.0); MEAN CORPUSCULAR HGB CONC 33.9 pg (28.0-36.0); MEAN PLATELET VOLUME 7.2 fl; MONOCYTE ABSOLUTE 0.9 Th/cmm (0.3-1.0); PLATELET COUNT 279 Th/cmm (150-400); POTASSIUM SERUM 5.3 mEq/L (3.5-5.1); RED BLOOD COUNT 3.11 Mil/cmm (3.80-5.80); RED CELL DISTRIBUTION WIDTH 12.4 % (11.5-20.0); SGOT 10 U/L (13-39); SGPT/ALT 6 U/L (7-52); SODIUM SERUM 136 mEq/L (136-145); TOTAL PROTEIN,SERUM 6.7 gm/dL (6.0-8.3)
[2018-03-10 15:34] LABS: TROP I < 0.01 ng/mL (0.01-0.05)
[2018-03-10 15:57] LABS: URINE SOURCE MIDSTREAM
[2018-03-10 15:59] LABS: URINE BILIRUBIN NEGATIVE (NEGATIVE); URINE BLOOD SMALL (NEGATIVE); URINE GLUCOSE (UA) NEGATIVE (NEGATIVE); URINE KETONE NEGATIVE (NEGATIVE); URINE LEUKOCYTE ESTERASE MODERATE (NEGATIVE); URINE MICROSCOPIC INDICATED? YES; URINE NITRATE POSITIVE (NEGATIVE); URINE PROTEIN TRACE mg/dL (NEGATIVE); URINE UROBILINOGEN 0.2 E.U./dL (0.2 - 1.0)
[2018-03-10 16:10] LABS: URINE CLARITY HAZY (CLEAR); URINE COLOR STRAW
[2018-03-10 16:15] LABS: URINE BACTERIA 2+ /hpf (NONE SEEN); URINE EPITHELIAL CELLS FEW /lpf (FEW)
[2018-03-10] MEDS ORDERED: cefTRIAXone 1 GM in Sodium Chloride 0.9% 50 ML IV ONE (16:15)
--- NOTE | 2018-03-10 16:25 | ED Physician Chart ---
ED Chief Complaint/HPI - Patient Information Date Seen:: 03/10/18 Time Seen:: 14:15 Chief Complaint:: Vomiting History of Present Illness:: onset x 2 days of N/V/D x 8; no report of trauma, LOC, ALOC, AMS, H/As, S/T, neck pain, cough, C/P, SOB, Abd. Pain, A/C, bleeding, or urinary s/s Allergies:: Allergies Allergy/AdvReac Type Severity Reaction Status Date / Time niacin Allergy Unverified 03/10/18 14:31 Vitals:: Vital Signs - 8 hr 03/10/18 03/10/18 14:18 16:04 Temp 97.4 F 97.4 F HR 72 66 RR 18 17 BP 110/60 105/56 O2 Sat % 97 97 Historian:: Patient, EMS Review:: Nurse's Note Reviewed, Old Chart Reviewed, EMS run form Reviewed ED Review of Systems - Review of Systems General/Constitutional: No fever, No chills, No weight loss, No weakness, No diaphoresis, No edema, No loss of appetite Skin: No skin lesions, No rash, No bruising Head: No headache, No light-headedness Eyes: No loss of vision, No pain, No diplopia ENT: No earache, No nasal drainage, No sore throat, No tinnitus Neck: No neck pain, No swelling, No thyromegaly, No stiffness, No mass noted Cardio Vascular: No chest pain, No palpitations, No PND, No orthopnea, No edema Pulmonary: No SOB, No cough, No sputum, No wheezing GI: Nausea, Vomiting, Diarrhea, No pain, No melena, No hematochezia, No constipation, No hematemesis G/U: No dysuria, No frequency, No hematuria, No nacturia Musculoskeletal: No bone or joint pain, No back pain, No muscle pain Endocrine: No polyuria, No polydipsia Psychiatric: No prior psych history, No depression, No anxiety, No suicidal ideation, No homicidal ideation, No auditory hallucination, No visual hallucination Hematopoietic: No bruising, No lymphadenopathy Allergic/Immuno: No urticaria, No angioedema Neurological: No syncope, No focal symptoms, No weakness, No paresthesia, No headache, No seizure, No dizziness, Confusion, No vertigo ED Past Medical History - Past Medical History Obtainable: Yes Past Medical History: HTN, DVT/PE, Dyslipidemia, Seizures, Dementia, Other Family History: HTN Social History: Non Smoker, No Alcohol, No Drug Use, Single, Care Facility Surgical History: None Psychiatricy History: Dementia Medication: Reviewed Family Medical History - Family Member Mother History Unknown: Yes Ethnicity: Unknown Living Status: Unknown Hx Family Cancer: (UNKNOWN) Hx Family Coronary Artery Disease: (UNKNOWN) Hx Family Congestive Heart Failure: (UNKNOWN) Hx Family Hypertension: (UNKNOWN) Hx Family Stroke: (UNKNOWN) Hx Family Diabetes: (UNKNOWN) Hx Family Seizures: (UNKNOWN) Hx Family Dementia: (UNKNOWN) Hx Family AIDS: (UNKNOWN) Hx Family COPD: (UNKNOWN) Hx Family Hepatitis: (UNKNOWN) Hx Family Psychiatric Problems: (UNKNOWN) Hx Family Tuberculosis: (UNKNOWN) ED Physical Exam - Physical Examination General/Constitutional: Awake, Well-developed, well-nourished, Alert, No distress, GCS 15, Non-toxic appearing, Ambulatory Head: Atraumatic Eyes: Lids, conjuctiva normal, PERRL, EOMI Skin: Nl inspection, No rash, No skin lesions, No ecchymosis, Well hydrated, No lymphadenopathy ENMT: External ears, nose nl, TM canals nl, Nasal exam nl, Lips, teeth, gums nl , Oropharynx nl, Tonsils nl Neck: Nontender, Full ROM w/o pain, No JVD, No nuchal rigidity, No bruit, No mass, No stridor Respiratory: Nl effort/Exclusion, Clear to Auscultation, No Wheeze/Rhonchi/Rales Cardio Vascular: RRR, No murmur, gallop, rubs, NL S1 S2, Carotid/Femoral/Distal pulses equal bilaterally GI: No tenderness/rebounding/guarding, No organomegaly, No hernia, Normal BS's, Nondistended, No mass/bruits, No McBurney tenderness, Rectum exam nl : No CVA tenderness Extremities: No tenderness or effusion, Full ROM, normal strength in all extremities, No edema, Normal digits & nails Neuro/Psych: Alert/oriented, DTR's symmetric, Normal sensory exam, Normal motor strength, Judgement/insight normal, Mood normal, Normal gait, No focal deficits Misc: Normal back, No paraspinal tenderness ED Labs/Radiology/EKG Results - Lab Results Results: Laboratory Tests 03/10/18 03/10/18 03/10/18 14:59 14:59 14:59 WBC 9.0 RBC 3.11 L Hgb 10.1 L Hct 29.7 L MCV 95.6 MCH 32.4 H MCHC Differential 33.9 RDW 12.4 Plt Count 279 MPV 7.2 Neutrophils % 66.4 Lymphocytes % 16.4 L Monocytes % 10.1 H Eosinophils % 6.7 H Basophils % 0.4 PT 11.4 INR 1.11 PTT (Actin FS) 27.9 Sodium 136 Potassium 5.3 H Chloride 104 Carbon Dioxide 24.9 Anion Gap 12.4 BUN 35 H Creatinine 2.0 H Est GFR ( Amer) TNP Est GFR (Non-Af Amer) TNP BUN/Creatinine Ratio 17.5 Glucose 123 H Whole Bld Lactic Acid Calcium 9.1 Total Bilirubin 0.2 L AST 10 L ALT 6 L Alkaline Phosphatase 27 L Creatine Kinase 31 Troponin I Total Protein 6.7 Albumin 3.2 L Globulin 3.5 Albumin/Globulin Ratio 0.9 L Urine Source Urine Color Urine Clarity Urine pH Ur Specific [place] Urine Protein Urine Glucose (UA) Urine Ketones Urine Blood Urine Nitrate Urine Bilirubin Urine Urobilinogen Ur Leukocyte Esterase Urine RBC Urine WBC Ur Epithelial Cells Urine Bacteria 03/10/18 03/10/18 14:59 15:00 WBC RBC Hgb Hct MCV MCH MCHC Differential RDW Plt Count MPV Neutrophils % Lymphocytes % Monocytes % Eosinophils % Basophils % PT INR PTT (Actin FS) Sodium Potassium Chloride Carbon Dioxide Anion Gap BUN Creatinine Est GFR ( Amer) Est GFR (Non-Af Amer) BUN/Creatinine Ratio Glucose Whole Bld Lactic Acid 1.58 Calcium Total Bilirubin AST ALT Alkaline Phosphatase Creatine Kinase Troponin I < 0.01 L Total Protein Albumin Globulin Albumin/Globulin Ratio Urine Source [place] Urine Color STRAW Urine Clarity HAZY Urine pH 7.0 Ur Specific [place] 1.010 Urine Protein TRACE Urine Glucose (UA) NEGATIVE Urine Ketones NEGATIVE Urine Blood SMALL H Urine Nitrate POSITIVE H Urine Bilirubin NEGATIVE Urine Urobilinogen 0.2 Ur Leukocyte Esterase MODERATE H Urine RBC 2-5 H Urine WBC 10-25 H Ur Epithelial Cells FEW Urine Bacteria 2+ H - Radiology Results Comments:: CXR: CPOD; NAD - EKG Interpretations EKG Time:: 15:09 Rate & Rhythm: 81; NSR Comments:: RBBB; LAFB; non-specific st-t changes ED Septic Shock - . Is Septic Shock (SBP<90, OR Lactate>4 mmol\L) present?: No - <6hrs of presentation: Vital Signs: Vital Signs - 8 hr 03/10/18 03/10/18 14:18 16:04 Temp 97.4 F 97.4 F HR 72 66 RR 18 17 BP 110/60 105/56 O2 Sat % 97 97 ED Reassessment (Disposition) - Reassessment Reassessment Condition:: Improved - Diagnosis Diagnosis:: N/V/D; AGE; Dehydration; UTI; Sepsis; Anemia; Hyperkalemia - Aftercare/Follow up Instructions Aftercare/Follow-Up Instructions:: Counseled pt regarding lab results/diagnosis & need follow up, Counseled pt & family regarding lab results/diagnosis & need follow up - Patient Disposition Discharge/Transfer:: Acute Care w/in this hosp Accepting Physician:: Dr. Vargas Time Called:: 1600 Time Responded:: 16:00 Admitted to:: Telemetry Spoke to:: Dr. Vargas Admitting Medical Physician:: Dr. Vargas Condition at Disposition:: Stable, Improved
[2018-03-10] MEDS ORDERED: Sodium Chloride 0.9% 1,000 ML IV ONE (16:32)
[2018-03-10 16:55] LABS: AMYLASE SERUM 29 U/L (29-103); LIPASE 17 U/L (11-82)
[2018-03-10 18:53] VITALS: BP 115/55
[2018-03-10] MEDS ORDERED: Non-Formulary Item 1 EA (Ondansetron Hcl [Zofran*] 4 MG) PO PRN (22:20)
[2018-03-10] MEDS ORDERED: RAMIPRIL PO SCH (22:30)
[2018-03-10] MEDS ORDERED: Diltiazem 5 mg/mL 5mL Vial IVP PRN (22:42)
[2018-03-11] MEDS: Sodium Chloride 0.9% 1,000 ML IV SCH ×3 (03:19→21:49)
[2018-03-11] MEDS: Diltiazem 30 mg Tab PO SCH ×3 (04:52→21:48)
[2018-03-11 06:29] LABS: % BASOPHILS 0.7 % (0.0-2.0); % EOSINOPHILS 7.1 % (0.0-5.0); % LYMPHOCYTES 23.1 % (20.0-50.0); % MONOCYTES 10.2 % (2.0-10.0); % NEUTROPHILS 58.9 % (40.0-80.0); BASOPHILE ABSOLUTE 0.1 Th/cumm (0-0.2); EOSINOPHILE ABSOLUTE 0.6 Th/cmm (0.1-0.4); HEMATOCRIT 29.4 % (41.0-60); HEMOGLOBIN 9.7 gm/dL (12-16); MEAN CELL VOLUME 95.4 fl (80-99); MEAN CORPUSCULAR HEMOGLOBIN 31.6 pg (27.0-31.0); MEAN CORPUSCULAR HGB CONC 33.1 pg (28.0-36.0); MEAN PLATELET VOLUME 7.1 fl; MONOCYTE ABSOLUTE 0.9 Th/cmm (0.3-1.0); NEUTROPHILE ABSOLUTE 5.1 Th/cmm (1.8-8.0); PLATELET COUNT 285 Th/cmm (150-400); RED BLOOD COUNT 3.09 Mil/cmm (3.80-5.80); RED CELL DISTRIBUTION WIDTH 12.2 % (11.5-20.0); WHITE BLOOD COUNT 8.7 Th/cmm (4.8-10.8)
[2018-03-11 06:44] LABS: ALB/GLOB RATIO 0.9 (1.0-1.8); ALBUMIN 2.9 gm/dL (4.2-5.5); ALKALINE PHOSPHATASE 22 U/L (34-104); ANION GAP 12.4 (7.0-16.0); BILIRUBIN,TOTAL 0.1 mg/dL (0.3-1.0); BUN - UREA NITROGEN 35 mg/dL (7-25); CALCIUM SERUM 8.8 mg/dL (8.6-10.3); CARBON DIOXIDE 23.3 mEq/L (21.0-31.0); CHLORIDE 108 mEq/L (98-107); CREATININE - SERUM 1.9 mg/dL (0.7-1.3); GLUCOSE 82 mg/dL (70-105); MAGNESIUM 2.2 mg/dL (1.9-2.7); POTASSIUM SERUM 5.7 mEq/L (3.5-5.1); SGOT 10 U/L (13-39); SGPT/ALT 6 U/L (7-52); SODIUM SERUM 138 mEq/L (136-145)
[2018-03-11] MEDS: cefTRIAXone 1 GM in Sodium Chloride 0.9% 50 ML IV SCH (08:40)
[2018-03-11] MEDS: Pantoprazole 40 mg EC Tab PO SCH (08:41)
[2018-03-11] MEDS: POLYETHYLENE GLYCOL 3350 17 GM PACK PO SCH (08:41)
--- NOTE | 2018-03-11 08:43 | Diagnostic Imaging Report ---
CHEST X-RAY: AP view INDICATION: pain COMPARISON: 02/07/2018 FINDINGS: Increased right basal lung markings are now noted. Chronic changes are noted. Mild cardiomegaly is noted. Degenerative changes of the spine are noted. IMPRESSION: Developing right basal atelectasis versus infiltrate, clinical correlation and follow-up recommended. Mild cardiomegaly.
[2018-03-11] MEDS ORDERED: SOLIFENACIN SUCCINATE PO SCH (09:00)
--- NOTE | 2018-03-11 16:48 | Cardiology ---
03/11/2018 PATIENT OF: Dr. Vargas. M-MODE ECHOCARDIOGRAM: Mitral valve, anterior leaflet of mitral valve shows normal excursion, EF velocity. Posterior leaflet of the mitral valve shows normal excursion. Left ventricle posterior wall shows normal thickness, excursion. Interventricular septum showed normal thickness, excursion. Ejection fraction 77%. Left atrium normal. Aortic root shows normal dimension, normal excursion of aortic leaflets. CONCLUSION: Normal M-mode echo, ejection fraction 77%. 2D ECHO: Long axis view showed normal sized left ventricle with normal wall motion, mitral valve shows normal excursion. Left atrium normal. Aortic root shows normal dimension, normal excursion of aortic leaflets. Short axis view of mitral valve normal. Short axis view of aortic valve normal. Apical four chamber view showed normal sized left ventricle, left atrium, right ventricle, right atrium, tricuspid and mitral valve. Ejection fraction 77%. CONCLUSION: Hypertrophy of the left ventricle, ejection fraction 77%. Doppler study shows [id number] mitral regurgitation, mild tricuspid regurgitation, right ventricular systolic pressure 35 mmHg. JOB# [id number]
--- NOTE | 2018-03-11 22:56 | Consultation ---
DATE OF CONSULTATION: 03/11/[address] Sheridan Maxwell. HISTORY OF PRESENT ILLNESS: This is a 77-year-old male patient who was brought to the hospital with urinary tract infection. The patient developed atrial fibrillation with rapid ventricular response. Hence, cardiac consult is requested. PAST MEDICAL HISTORY: Paranoid schizophrenia, BPH, major depression, DVT with pulmonary emboli, onychomycosis of the toenails, and iron deficiency anemia. FAMILY HISTORY: Unremarkable. SOCIAL HISTORY: No history of smoking, alcohol abuse. ALLERGIES: No known allergies. PHYSICAL EXAMINATION: VITAL SIGNS: Blood pressure 130/80, pulse 150 and irregular, respirations 20. HEAD: Normocephalic. No lumps or bumps. EYES: Pupils equal, reactive to light. Fundi show AV nicking, sclerae white, conjunctivae pink. NECK: Carotid 2+. Normal upstroke. JVD flat. Thyroid not palpable. Lymph nodes not palpable. Thyroid not palpable. LUNGS: Clear. HEART: Irregular ____. ABDOMEN: Soft. Liver, spleen not palpable. No organomegaly. Bowel sounds active. NEUROLOGIC: Unremarkable. EXTREMITIES: Peripheral pulses 1+. The patient has onychomycosis of the toenails. CLINICAL IMPRESSION: 1. Paroxysmal atrial fibrillation converted to normal sinus rhythm with Cardizem. 2. Hypertension. 3. Urinary tract infection. 4. Paranoid schizophrenia. 5. Benign prostatic hypertrophy. 6. Major depression. 7. Deep venous thrombosis with pulmonary emboli. 8. Onychomycosis of the toenails. PLAN: The patient to continue on Cardizem 60 mg q.8 hours, anticoagulation, and metoprolol. The patient to continue IV antibiotics. The patient had echocardiogram, which showed ejection fraction 77% with a left ventricular hypertrophy and [id number] mitral regurgitation and mild tricuspid regurgitation, right ventricular systolic pressure 35 mmHg. JOB# [id number]
[2018-03-12] MEDS: Diltiazem 30 mg Tab PO SCH ×3 (06:14→21:52)
[2018-03-12 06:47] LABS: % EOSINOPHILS 7.5 % (0.0-5.0); % LYMPHOCYTES 24.1 % (20.0-50.0); % MONOCYTES 11.4 % (2.0-10.0); BASOPHILE ABSOLUTE 0.1 Th/cumm (0-0.2); EOSINOPHILE ABSOLUTE 0.6 Th/cmm (0.1-0.4); HEMOGLOBIN 9.3 gm/dL (12-16); LYMPHOCYTE ABSOLUTE 1.9 Th/cmm (1.5-3.0); MEAN CELL VOLUME 94.9 fl (80-99); MEAN CORPUSCULAR HEMOGLOBIN 31.7 pg (27.0-31.0); MEAN CORPUSCULAR HGB CONC 33.4 pg (28.0-36.0); MEAN PLATELET VOLUME 7.2 fl; MONOCYTE ABSOLUTE 0.9 Th/cmm (0.3-1.0); NEUTROPHILE ABSOLUTE 4.5 Th/cmm (1.8-8.0); PLATELET COUNT 280 Th/cmm (150-400); RED BLOOD COUNT 2.94 Mil/cmm (3.80-5.80); RED CELL DISTRIBUTION WIDTH 12.3 % (11.5-20.0)
[2018-03-12 06:56] LABS: ANION GAP 12.7 (7.0-16.0); BUN - UREA NITROGEN 32 mg/dL (7-25); CALCIUM SERUM 9.3 mg/dL (8.6-10.3); CARBON DIOXIDE 25.4 mEq/L (21.0-31.0); CHLORIDE 109 mEq/L (98-107); CREATININE - SERUM 1.9 mg/dL (0.7-1.3); GLUCOSE 94 mg/dL (70-105); MAGNESIUM 2.1 mg/dL (1.9-2.7); SODIUM SERUM 141 mEq/L (136-145)
[2018-03-12 07:07] LABS: POTASSIUM SERUM 6.1 mEq/L (3.5-5.1)
[2018-03-12] MEDS: Pantoprazole 40 mg EC Tab PO SCH (09:22)
[2018-03-12] MEDS: POLYETHYLENE GLYCOL 3350 17 GM PACK PO SCH (09:22)
--- NOTE | 2018-03-12 09:33 | Diagnostic Imaging Report ---
Portable chest x-ray HISTORY: Cough Compared with prior exam of March 10, 2018, the heart appears enlarged. No focal pulmonary processes. No hilar or mediastinal abnormalities. IMPRESSION: 1. No acute focal pulmonary processes 2. Cardiomegaly
[2018-03-12] MEDS: cefTRIAXone 1 GM in Sodium Chloride 0.9% 50 ML IV SCH (09:38)
--- NOTE | 2018-03-12 11:18 | General Progress Note ---
Subjective - Review of Systems Service Date: 03/12/18 Subjective: Patient has no complaint of chest pain or palpitation Objective - Results Result Diagrams: 03/12/18 05:30 03/12/18 05:30 Recent Labs: Laboratory Last Values WBC 8.0 Th/cmm (4.8-10.8) 03/12/18 05:30 RBC 2.94 Mil/cmm (3.80-5.80) L 03/12/18 05:30 Hgb 9.3 gm/dL (12-16) L 03/12/18 05:30 Hct 28.0 % (41.0-60) L 03/12/18 05:30 MCV 94.9 fl (80-99) 03/12/18 05:30 MCH 31.7 pg (27.0-31.0) H 03/12/18 05:30 MCHC Differential 33.4 pg (28.0-36.0) 03/12/18 05:30 RDW 12.3 % (11.5-20.0) 03/12/18 05:30 Plt Count 280 Th/cmm (150-400) 03/12/18 05:30 MPV 7.2 fl 03/12/18 05:30 Neutrophils % 56.0 % (40.0-80.0) 03/12/18 05:30 Lymphocytes % 24.1 % (20.0-50.0) 03/12/18 05:30 Monocytes % 11.4 % (2.0-10.0) H 03/12/18 05:30 Eosinophils % 7.5 % (0.0-5.0) H 03/12/18 05:30 Basophils % 1.0 % (0.0-2.0) 03/12/18 05:30 PT 11.4 SECONDS (9.5-11.5) 03/10/18 14:59 INR 1.11 (0.5-1.4) 03/10/18 14:59 PTT (Actin FS) 27.9 SECONDS (26.0-38.0) 03/10/18 14:59 Sodium 141 mEq/L (136-145) 03/12/18 05:30 Potassium 6.1 mEq/L (3.5-5.1) H* 03/12/18 05:30 Chloride 109 mEq/L (98-107) H 03/12/18 05:30 Carbon Dioxide 25.4 mEq/L (21.0-31.0) 03/12/18 05:30 Anion Gap 12.7 (7.0-16.0) 03/12/18 05:30 BUN 32 mg/dL (7-25) H 03/12/18 05:30 Creatinine 1.9 mg/dL (0.7-1.3) H 03/12/18 05:30 Est GFR ( Amer) TNP 03/12/18 05:30 Est GFR (Non-Af Amer) TNP 03/12/18 05:30 BUN/Creatinine Ratio 16.8 03/12/18 05:30 Glucose 94 mg/dL (70-105) 03/12/18 05:30 Whole Bld Lactic Acid 1.91 mmol/L (0.60-1.99) 03/11/18 05:39 Calcium 9.3 mg/dL (8.6-10.3) 03/12/18 05:30 Magnesium 2.1 mg/dL (1.9-2.7) 03/12/18 05:30 Total Bilirubin 0.1 mg/dL (0.3-1.0) L 03/11/18 05:39 AST 10 U/L (13-39) L 03/11/18 05:39 ALT 6 U/L (7-52) L 03/11/18 05:39 Alkaline Phosphatase 22 U/L (34-104) L 03/11/18 05:39 Creatine Kinase 31 U/L (30-223) 03/10/18 14:59 Troponin I < 0.01 ng/mL (0.01-0.05) L 03/10/18 14:59 Total Protein 6.0 gm/dL (6.0-8.3) 03/11/18 05:39 Albumin 2.9 gm/dL (4.2-5.5) L 03/11/18 05:39 Globulin 3.1 gm/dL 03/11/18 05:39 Albumin/Globulin Ratio 0.9 (1.0-1.8) L 03/11/18 05:39 Amylase 29 U/L (29-103) 03/10/18 16:27 Lipase 17 U/L (11-82) 03/10/18 16:27 Urine Source MIDSTREAM 03/10/18 15:00 Urine Color STRAW 03/10/18 15:00 Urine Clarity HAZY (CLEAR) 03/10/18 15:00 Urine pH 7.0 (4.6 - 8.0) 03/10/18 15:00 Ur Specific [place] 1.010 (1.005-1.030) 03/10/18 15:00 Urine Protein TRACE mg/dL (NEGATIVE) 03/10/18 15:00 Urine Glucose (UA) NEGATIVE mg/dL (NEGATIVE) 03/10/18 15:00 Urine Ketones NEGATIVE mg/dL (NEGATIVE) 03/10/18 15:00 Urine Blood SMALL (NEGATIVE) H 03/10/18 15:00 Urine Nitrate POSITIVE (NEGATIVE) H 03/10/18 15:00 Urine Bilirubin NEGATIVE (NEGATIVE) 03/10/18 15:00 Urine Urobilinogen 0.2 E.U./dL (0.2 - 1.0) 03/10/18 15:00 Ur Leukocyte Esterase MODERATE (NEGATIVE) H 03/10/18 15:00 Urine RBC 2-5 /hpf (0-5) H 03/10/18 15:00 Urine WBC 10-25 /hpf (0-5) H 03/10/18 15:00 Ur Epithelial Cells FEW /lpf (FEW) 03/10/18 15:00 Urine Bacteria 2+ /hpf (NONE SEEN) H 03/10/18 15:00 - Physical Exam Vitals and I&O: Vital Signs Temp 97.8 F 03/12/18 08:00 Pulse 70 03/12/18 09:24 Resp 18 03/12/18 09:13 BP 109/55 03/12/18 09:24 Pulse Ox 97 03/12/18 09:13 Intake & Output 03/11/18 03/12/18 03/12/18 18:59 06:59 18:59 Intake Total 975 1025 Balance 975 1025 Weight (lbs) 65.771 kg Intake: Intake, IV Amount 975 925 Sodium Chloride 0.9% 1, 925 925 000 ml @ 100 mls/hr IV . Q10H JOVANNI Rx#:[id number] cefTRIAXone 1 gm In 50 Sodium Chloride 0.9% 50 ml @ 100 mls/hr IV Q24HR JOVANNI Rx#:[id number] Oral 100 Other: # Voids 4 # Bowel Movements 0 Stool Characteristics Liquid Liquid Weight Source Bedscale Active Medications: Current Medications Acetaminophen (Tylenol) 325 mg PO Q4HR PRN PRN Reason: Pain (Mild) Stop: 05/09/18 22:18 Calcium Carbonate (Os-Tyrone) 500 mg PO BID [facility] Stop: 05/10/18 08:59 Last Admin: 03/12/18 09:22 Dose: 500 mg Cholecalciferol (Vitamin D3) 1,000 iu PO DAILY [facility] Stop: 05/10/18 08:59 Last Admin: 03/12/18 09:21 Dose: 1,000 iu Diltiazem HCl (Cardizem) 20 mg IVP Q4H PRN PRN Reason: HR Greater than 120 per min Stop: 05/09/18 22:41 Diltiazem HCl (Cardizem) 60 mg PO Q8HR [facility] Stop: 05/10/18 04:59 Last Admin: 03/12/18 06:14 Dose: 60 mg Divalproex Sodium (Depakote Dr) 500 mg PO TID [facility]; Protocol Stop: 05/09/18 22:29 Last Admin: 03/12/18 09:21 Dose: 500 mg Docusate Sodium (Colace) 250 mg PO DAILY [facility] Stop: 05/10/18 08:59 Last Admin: 03/12/18 09:22 Dose: 250 mg Ceftriaxone Sodium 1 gm/ (Sodium Chloride) 50 mls @ 100 mls/hr IV Q24HR [facility] Stop: 05/10/18 08:59 Last Admin: 03/12/18 09:38 Dose: 100 mls/hr Sodium Chloride (Nacl 0.9%) 1,000 mls @ 100 mls/hr IV .Q10H [facility] Stop: 05/09/18 17:29 Last Admin: 03/11/18 21:49 Dose: 100 mls/hr Metoprolol Tartrate (Lopressor) 25 mg PO BID [facility] Stop: 05/09/18 21:59 Last Admin: 03/12/18 09:24 Dose: Not Given Miscellaneous (Solifenacin Succinate [Vesicare]) 1 tab PO DAILY [facility] Stop: 05/10/18 08:59 Miscellaneous (Clinical Monitoring) 1 ea MC DAILY PRN PRN Reason: RENAL DOSING- XARELTO Stop: 05/10/18 15:17 Ondansetron HCl (Zofran Odt) 4 mg PO Q6H PRN PRN Reason: NAUSEA/VOMITING Stop: 05/10/18 09:04 Pantoprazole Sodium (Protonix) 40 mg PO DAILY [facility] Stop: 05/10/18 08:59 Last Admin: 03/12/18 09:22 Dose: 40 mg Polyethylene Glycol (Miralax) 17 gm PO DAILY [facility] Stop: 05/10/18 08:59 Last Admin: 03/12/18 09:22 Dose: 17 gm Rivaroxaban (Xarelto) 20 mg PO QPM [facility] Stop: 05/10/18 16:59 Last Admin: 03/11/18 17:23 Dose: 20 mg General: Mild distress HEENT: Other (normal) Neck: Supple, JVD (normal), +2 carotid pulse wo bruit Cardiovascular: Regular rate, Systolic murmurs, Other (atrial fibrillation) Lungs: Other (basilar rales and rhonchi) Abdomen: Soft, Other (no organomegaly) Extremities: Edema Neurological: Reflexes 2+ - Procedures Procedures: Procedures Procedure Code Date C & S-INTEGUMENT 91.63 07/11/94 CULTURE OTHR SPECIMN AEROBIC 85851 07/11/94 DILATION OF URETHRA, ENDO [id number] 01/07/18 DX ULTRASOUND-VASCULAR 88.77 02/13/95 ELECTROCARDIOGRAPH MONIT 89.54 02/13/95 INJECT ANTIBIOTIC 99.21 11/25/94 INJECT ANTICOAGULANT 99.19 07/11/94 MICROBE SUSCEPTIBLE DISK 09458 07/11/94 OTHER C.A.T. SCAN 88.38 02/13/95 URINARY SYSTEM X-RAY NEC 87.79 07/11/94 [facility] THERAP[facility] 65038 07/11/94 [facility] TREATMENT 93.32 07/11/94 Assessment/Plan - Assessment Assessment: Atrial fibrillation converted to normal sinus rhythm Hypertension Urinary tract infection Paranoid schizophrenia BPH Major depression Old DVT with pulmonary emboli Onychomycosis of toenails - Plan Plan: Continue present management discontinue to control atrial fibrillation continue antibiotics Nutritional Asmnt/Malnutr-PDOC - Dietary Evaluation Malnutrition Findings (Please click <Entered> for more info): Nutritional Asmnt/Malnutrition Start: 03/11/18 13: 32 Text: Status: Complete Freq: Protocol: Document 03/11/18 13:32 [email or web address] (Rec: 03/11/18 13:52 [email or web address] APARNA) Nutritional Asmnt/Malnutrition Patient General Information Nutritional Screening High Risk Diagnosis UTI, sepsis Pertinent Medical Hx/Surgical Hx HTN, DVT/PE, dyslipidemia, seizures, dementia Subjective Information Pt was resting in bed at time of visit, confused. PO intake is 75% breakfast today per [employer] . Per nurse note, MD ordered kayexalate for elevated potassium levels. Current Diet Order/ Nutrition Support pureed, no added salt 4gm Pertinent Medications oscal, vit d3, cardizem, colace, zofran, protonix, miralax, NaCl 0.9% Pertinent Labs 03/11 K 5.7, cl 108, BUN 35, cr 1.9, alb 2.9 Nutritional Hx/Data Height 1.68 m Height (Calculated Centimeters) 167.6 Current Weight (lbs) 65.771 kg Weight (Calculated Kilograms) 65.8 Weight (Calculated Grams) 34904.9 [place] Body Weight 142 Body Mass Index (BMI) 23.3 Weight Status Approriate GI Symptoms GI Symptoms Vomitting Last BM 03/11 Difficult in: None Food Allergies No Skin Integrity/Comment: bilateral lower leg discoloration and open wound, gillian 13 Current %PO Good (75-100%) Estimated Nutritional Goals BEE in Kcals: Using Current wt Calories/Kcals/Kg 25-30 Kcals Calculated Protein: Using Current wt Protein g/k-1.2 Protein Calculated 65-79 Fluid: ml (1ml/kcal) Nutritional Problem 1. Problem Problem altered nutrition related labs Etiology fluid/electrolyte imbalance, possible renal dysfunction Signs/Symptoms: K 5.7, cl 108, BUN 35, cr 1.9 Malnutrition Alert Is there a minimum of two criteria No selected? Query Text:Check all the applicable criteria. A minimum of two criteria are recommended for diagnosis of either severe or non-severe malnutrition. Malnutrition Related to Morbid Obesity Malnutrition related to morbid obesity No Intervention/Recommendation Comments 1. Continue with pureed, no added salt 4gm diet as ordered . Recommend to limit high potassium food d/t elevated potassium lab 2. Add James BID for wound healing 3. MD to adjust electrolytes 4. Monitor PO intake, wt, labs and skin integrity 5. F/U as high risk in 2-3 days Expected Outcomes/Goals Expected Outcomes/Goals 1. PO intake to meet at least 75% of nutritional needs. 2. Wt stability, improved skin integrity, labs to approach WNL. Reviewed by Cristela Wiggins RD
[2018-03-12] MEDS: Ciprofloxacin 200mg Premix PB 200 MG/100 ML BAG IV SCH ×2 (12:15→21:50)
[2018-03-12] MEDS: Menthol/Zinc Oxide Oint 113gm Tube TP PRN (17:43)
[2018-03-12] MEDS: Sodium Chloride 0.9% 1,000 ML IV SCH (23:16)
[2018-03-13] MEDS: Diltiazem 30 mg Tab PO SCH ×2 (05:26→12:51)
[2018-03-13 05:52] LABS: % BASOPHILS 1.1 % (0.0-2.0); % EOSINOPHILS 5.6 % (0.0-5.0); % LYMPHOCYTES 18.8 % (20.0-50.0); % MONOCYTES 10.5 % (2.0-10.0); BASOPHILE ABSOLUTE 0.1 Th/cumm (0-0.2); EOSINOPHILE ABSOLUTE 0.4 Th/cmm (0.1-0.4); HEMATOCRIT 27.1 % (41.0-60); HEMOGLOBIN 9.1 gm/dL (12-16); LYMPHOCYTE ABSOLUTE 1.4 Th/cmm (1.5-3.0); MEAN CELL VOLUME 94.8 fl (80-99); MEAN CORPUSCULAR HEMOGLOBIN 31.9 pg (27.0-31.0); MEAN CORPUSCULAR HGB CONC 33.7 pg (28.0-36.0); MEAN PLATELET VOLUME 6.8 fl; MONOCYTE ABSOLUTE 0.8 Th/cmm (0.3-1.0); NEUTROPHILE ABSOLUTE 4.9 Th/cmm (1.8-8.0); PLATELET COUNT 302 Th/cmm (150-400); RED BLOOD COUNT 2.86 Mil/cmm (3.80-5.80); WHITE BLOOD COUNT 7.6 Th/cmm (4.8-10.8)
[2018-03-13 06:03] LABS: ANION GAP 12.2 (7.0-16.0); BUN - UREA NITROGEN 26 mg/dL (7-25); CALCIUM SERUM 8.9 mg/dL (8.6-10.3); CARBON DIOXIDE 23.2 mEq/L (21.0-31.0); CHLORIDE 108 mEq/L (98-107); CHOLESTEROL 108 mg/dL (<200); CREATININE - SERUM 1.6 mg/dL (0.7-1.3); GLUCOSE 83 mg/dL (70-105); HDL -HIGH DENSITY LIPOPROTEIN 26 mg/dL (23-92); MAGNESIUM 1.8 mg/dL (1.9-2.7); POTASSIUM SERUM 4.4 mEq/L (3.5-5.1); SODIUM SERUM 139 mEq/L (136-145); TRIGLYCERIDES 167 mg/dL (<150)
[2018-03-13] MEDS: Menthol/Zinc Oxide Oint 113gm Tube TP PRN (06:23)
[2018-03-13] MEDS: cefTRIAXone 1 GM in Sodium Chloride 0.9% 50 ML IV SCH (08:35)
[2018-03-13] MEDS: POLYETHYLENE GLYCOL 3350 17 GM PACK PO SCH (08:41)
[2018-03-13] MEDS: Pantoprazole 40 mg EC Tab PO SCH (08:41)
[2018-03-13] MEDS: Ciprofloxacin 200mg Premix PB 200 MG/100 ML BAG IV SCH (10:16)
--- NOTE | 2018-03-13 16:34 | Discharge Summary ---
DATE OF DISCHARGE: 03/13/2018 ADMITTING DIAGNOSES: 1. Sepsis. 2. Urinary tract infection. 3. Acute on chronic renal insufficiency. 4. Dehydration. 5. Hyperkalemia. SECONDARY DIAGNOSES: Include; 1. Chronic renal insufficiency secondary to hyperactive bladder. 2. History of bilateral hydronephrosis. 3. Depression. 4. Psychiatric disorder. 5. Essential hypertension. 6. History of lower extremity deep venous thrombosis. 7. Intellectual disability. 8. Chronic anemia. 9. Dyslipidemia. 10. History of atrial fibrillation. DISCHARGE DIAGNOSES: 1. Sepsis secondary to urinary tract infection -- clinically stable. 2. Complex urinary tract infection -- awaiting final C/S results. 3. Bacteremia with gram-positive rods. 4. Atrial fibrillation with rapid ventricular response, now rate controlled. CONSULTANTS: Cardiology, Dr. Jose Carlos King. DIAGNOSTICS: Major diagnostics underwent a 2D echo on showing hypertrophy of the left ventricle with an EF of 77%. BRIEF HOSPITAL COURSE: This is a 77-year-old male, who resides at [facility], who has been admitted a couple of times in the last few weeks for UTI, gastroenteritis, who presented with a 1-day history of nausea, vomiting, diarrhea and fevers. He was seen at the ED where pertinent findings included a potassium of 5.3 and a UA consistent with a UTI. By hospital day #1, he was noted to be tachycardic with a rhythm consistent with AFib with RVR. He was initially placed on IV fluids, IV antibiotics and eventually on Lopressor given the RVR as well as diltiazem. Cardiology consult was also placed for further management and care. His labs remained relatively stable except for a potassium level of 6.1 on 03/12/2017, which improved to a level of 4.4 on 03/13/2018, which was treated with Kayexalate. The white count did remain normal overall and his cultures became available by a . The urine culture showing coagulase negative Staph and the blood showed gram-positive rods. Given the results, the patient has remained on antibiotics, namely Rocephin and ciprofloxacin for broad coverage. MEDICATIONS ON DISCHARGE: Cipro 200 q.12 hours, Rocephin 1 gram q.24 hours, vitamin D 1000 International units every day, Tylenol 325 q.4 p.r.n. for pain, calcium carbonate 500 mg b.i.d., diltiazem 60 mg q.8 hours, Depakote 500 mg t.i.d., docusate sodium 250 every day, IV or NS up to 100 mL per hour, Protonix 40 mg every day, MiraLax 17 grams daily, Xarelto 20 mg q.p.m. and VESIcare 1 tab daily. CONDITION ON DISCHARGE: Stable. DISPOSITION: The patient was transferred to [facility] for completion of IV antibiotics and further management. JOB# [id number] MTDD
== END 2018-03-13 13:05 | DRG 871 ==
LOC: ER 14:15 → TELE 17:03
PROVIDERS: ADMIT Internal Medicine; ATTEND Internal Medicine
DX: A41.9 Sepsis, unspecified organism (principal); R53.2 Functional quadriplegia; N39.0 Urinary tract infection, site not specified; F20.0 Paranoid schizophrenia; I48.0 Paroxysmal atrial fibrillation; F32.9 Major depressive disorder, single episode, unspecified; B35.1 Tinea unguium; N40.0 Benign prostatic hyperplasia without lower urinary tract symptoms; R56.9 Unspecified convulsions; F03.90 Unspecified dementia, unspecified severity, without behavioral disturbance, psychotic disturbance, mood disturbance, and anxiety; E87.5 Hyperkalemia; K52.9 Noninfective gastroenteritis and colitis, unspecified; E86.0 Dehydration; D64.9 Anemia, unspecified; N18.9 Chronic kidney disease, unspecified; I12.9 Hypertensive chronic kidney disease with stage 1 through stage 4 chronic kidney disease, or unspecified chronic kidney disease; N32.81 Overactive bladder; F29 Unspecified psychosis not due to a substance or known physiological condition; F79 Unspecified intellectual disabilities; Z86.718 Personal history of other venous thrombosis and embolism; Z86.711 Personal history of pulmonary embolism; Z82.49 Family history of ischemic heart disease and other diseases of the circulatory system
CPT/HCPCS: 36415-UA; 71045-TC; 80048-TC; 80053-TC; 80061-TC; 81001-TC; 82150-TC; 82550-TC; 83605; 83690-TC; 83735-TC; 84484-TC; 85025-TC; 85610-TC; 85730-TC; 87086-90; 93005; 94760; J0696; J0744; J7030; Z7610